=== PATIENT | male | born 1955 | race Caucasian/White ===

== ENCOUNTER → 2021-04-15 14:21 | Outpatient (BNVA) | payer OTHER, SELFPAY | PROVIDERS: PCP Internal Medicine; Visit Provider Internal Medicine ==

== ENCOUNTER → 2021-06-24 14:20 | Outpatient (BNVA) | payer OTHER, SELFPAY | PROVIDERS: PCP Internal Medicine; Visit Provider Internal Medicine ==

== ENCOUNTER → 2021-11-18 14:40 | Outpatient (BNVA) | payer OTHER, MEDICARE, SELFPAY | PROVIDERS: PCP Internal Medicine; Visit Provider Internal Medicine ==

== ENCOUNTER 2022-01-01 07:57 | Outpatient (REF) | payer MEDICARE, SELFPAY ==
--- NOTE | ~2022-01-01 | CT_ITS ---
EXAMINATION: CT CHEST WITHOUT CONTRAST CLINICAL INFORMATION: COPD COMPARISON: None TECHNIQUE: Multidetector volumetric CT imaging of the chest was done. Axial MIP volume rendering provided. Sagittal and coronal reformatted images were obtained. This CT examination was performed using dose optimization techniques as appropriate, variously including the following: *Automated exposure control *Adjustment of mA and/or kV according to patient size (this includes techniques or standardized protocols for targeted exams where dose is matched to indication/reason for exam; i.e. 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 LUNGS: The lungs are diffusely emphysematous with bullous changes in both upper lobes and apical parenchymal scarring. There is a 2 mm nodule in the left major fissure image 324/7 likely intrafissural lymph node, a 2 mm nodule in the lingula laterally adjacent major fissure axial image 443/7. There are tiny calcified granuloma scattered in the lungs measuring 1 mm and less. There is no acute consolidation or ground-glass density. There is moderate middle lobe atelectasis. No evidence of bronchiectasis or bronchial wall thickening. Centrilobular and paraseptal emphysema is seen. MEDIASTINUM: The thyroid lobes are symmetrical and normal. Central trachea and the bronchi are widely patent. No abnormal size mediastinal or hilar lymph nodes seen. PLEURA: There is no pleural effusion. No pleural mass or thickening. AXILLA: No lymphadenopathy. UPPER ABDOMEN: Visualized liver, spleen, pancreas and bilateral adrenal glands are unremarkable. OSSEOUS STRUCTURES: No lytic or sclerotic process seen. There is mild ventral spondylosis mid dorsal spine. CT/CT chest wo con IMPRESSION: Diffuse centrilobular and paraseptal emphysema. Right middle lobe atelectasis. No acute pneumonic consolidation or atelectasis. Small major fissure intrafissural lymph node. Tiny calcifications likely old granulomatous disease. No abnormal mediastinal lymphadenopathy. Fleischner guidelines were followed.
== END 2022-01-01 07:58 | disposition home or self-care (01) ==
LOC: HO.CT 07:57
PROVIDERS: Visit Provider Surgery
DX: J44.9 Chronic obstructive pulmonary disease, unspecified (principal); R91.8 Other nonspecific abnormal finding of lung field
CPT/HCPCS: 71250

== ENCOUNTER → 2022-01-15 10:07 | Outpatient (BNVA) | payer MEDICARE, SELFPAY | PROVIDERS: PCP Internal Medicine; Visit Provider Surgery | DX: R91.8 Other nonspecific abnormal finding of lung field (principal); Z87.891 Personal history of nicotine dependence | CPT/HCPCS: 99202 ==

== ENCOUNTER → 2022-05-13 13:52 | Outpatient (BNVA) | payer MEDICARE, SELFPAY | PROVIDERS: PCP Internal Medicine; Visit Provider Internal Medicine | DX: J44.9 Chronic obstructive pulmonary disease, unspecified (principal); R91.8 Other nonspecific abnormal finding of lung field; Z87.891 Personal history of nicotine dependence | CPT/HCPCS: 99212 ==

== ENCOUNTER → 2022-08-11 13:20 | Outpatient (BNVA) | payer MEDICARE, SELFPAY | PROVIDERS: PCP Internal Medicine; Visit Provider Internal Medicine | DX: J44.9 Chronic obstructive pulmonary disease, unspecified (principal); R91.8 Other nonspecific abnormal finding of lung field; Z87.891 Personal history of nicotine dependence | CPT/HCPCS: 94010; 99212 ==

== ENCOUNTER → 2022-11-29 09:33 | Outpatient (BNVA) | payer MEDICARE, SELFPAY | PROVIDERS: PCP Internal Medicine; Visit Provider Internal Medicine | DX: J44.9 Chronic obstructive pulmonary disease, unspecified (principal); R91.8 Other nonspecific abnormal finding of lung field; Z87.891 Personal history of nicotine dependence | CPT/HCPCS: 99212 ==

== ENCOUNTER 2022-12-31 08:47 | Outpatient (REF) | payer MEDICARE, SELFPAY ==
--- NOTE | ~2022-12-31 | CT_ITS ---
EXAMINATION: CT CHEST SCREENING CLINICAL INFORMATION: 50 pack year history. Former smoker. Quit 2 years ago. COMPARISON: Previous chest CT December 2021 TECHNIQUE: Multidetector volumetric CT imaging of the chest is performed without contrast using low dose technique. Additional 2D coronal and sagittal reformatted images and axial 3D maximum intensity projection (MIP) images are generated on the CT workstation. This CT examination was performed using dose optimization techniques as appropriate, variously including the following: *Automated exposure control *Adjustment of mA and/or kV according to patient size (this includes techniques or standardized protocols for targeted exams where dose is matched to indication/reason for exam; i.e. extremities or head) *Use of iterative reconstruction technique DLP: 47 mGy-cm FINDINGS: LUNGS: There is severe emphysema and hyperinflation. There is complete right middle lobe atelectasis or to previous exam. Stable biapical pleural parenchymal scarring. No suspicious pulmonary nodule. MEDIASTINUM: The mediastinum is normal. CORONARY ARTERY CALCIFICATION: Severe coronary artery and aortic valve calcification. PLEURA: There is no pleural effusion. No pleural mass or thickening. AXILLA: No lymphadenopathy. UPPER ABDOMEN: Unremarkable OSSEOUS STRUCTURES: Degenerative changes of the spine. CT/CT lung screening IMPRESSION: Severe emphysema and hyperinflation. Chronic complete atelectasis of the right middle lobe unchanged from previous exam. ASSESSMENT: Lung-RADS category 2: Benign RECOMMENDATION: Annual low-dose chest CT follow-up recommended.
== END 2022-12-31 08:48 | disposition home or self-care (01) ==
LOC: HO.CT 08:47
PROVIDERS: PCP Internal Medicine; Visit Provider Surgery
DX: Z12.2 Encounter for screening for malignant neoplasm of respiratory organs (principal); Z87.891 Personal history of nicotine dependence
CPT/HCPCS: 71271

== ENCOUNTER → 2023-02-09 13:59 | Outpatient (BNVA) | payer MEDICARE, SELFPAY | PROVIDERS: PCP Internal Medicine Sports Medicine; Visit Provider Internal Medicine | DX: J44.9 Chronic obstructive pulmonary disease, unspecified (principal); R06.09 Other forms of dyspnea; R91.8 Other nonspecific abnormal finding of lung field; Z87.891 Personal history of nicotine dependence | CPT/HCPCS: 94618; 99212 ==

== ENCOUNTER → 2023-03-16 13:32 | Outpatient (BNVA) | payer MEDICARE, SELFPAY | PROVIDERS: PCP Internal Medicine Sports Medicine; Visit Provider Internal Medicine | DX: J44.9 Chronic obstructive pulmonary disease, unspecified (principal); R91.8 Other nonspecific abnormal finding of lung field; R06.09 Other forms of dyspnea | CPT/HCPCS: 94618; 99212 ==

== ENCOUNTER 2023-05-16 13:32 | Outpatient (AMB) | payer MEDICARE, SELFPAY ==
--- NOTE | 2023-05-16 13:39 | A.OFFVIS_ITS ---
Intake Vital Signs 05/16/23 13:40 Height 5 ft 9 in Weight 121 lb BMI 17.9 BP 110/70 Blood Pressure Location Lt brachial Position Sitting Pulse 127 H Pulse Source Pulse Oximeter Pulse Oximetry (%) 91 L Oxygen Delivery Method Nasal Cannula Oxygen Flow Rate 2 Intake Visit Reasons: Increased Shortness of Breath Intake Note: pt is here for follow up and states he is having increased pulse with walking, and breathing is good, and he needs to use oxygen, using 3 liters cont. and 4 with pulse with going out to have tanks last longer. 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 Allergies No Known Allergies Allergy (Verified 05/16/23 14:13) Medication List - Last Reconciled 05/16/23 by Bailee Santacruz MD albuterol sulfate 90 mcg/actuation 2 puffs inhalation Q4-6H PRN 90 days aspirin 81 mg PO .qod atorvastatin 20 mg PO DAILY glucosamine HCl 1,500 mg PO DAILY ipratropium-albuterol 0.5 mg-3 mg(2.5 mg base)/3 mL 3 mL inhalation QID PRN multivitamin (Daily Multi-Vitamin tablet) 1 tab PO DAILY prednisone 20 mg PO BID silver sulfadiazine 1% appl topical BID Symbicort 160-4.5 mcg/actuation (budesonide-formoterol) 2 puffs inhalation BID 90 days NS Do you need a note to return to daycare/school/sports/work: No HPI Increased Shortness of Breath HPI Details 67 YEARS OLD VERY PLEASANT GENTLEMAN, WITH DIAGNOSIS OF ADVANCED COPD AND HYPOXEMIA, COMES FOR FOLLOW-UP AFTER 2 MONTHS. HE CLAIMS THAT THE BREATHING HAS BEEN FAIRLY WELL AND HE CONTINUES TO USE HIS INHALERS PRESCRIBED, AND DUONEB UPDRAFTS. HE STAYS ON OXYGEN, ON CONTINUOUS FLOW WHEN AT HOME, BUT FOR OUTDOORS HE IS USING PULSE OX MODE AT 4 L/MINUTE. HE DENIES ANY WHEEZING. DOES HAVE INTERMITTENT COUGH WITH THICK MUCUS, FEELS BETTER WHEN HE CAN CLEAR THE MUCUS. AT NIGHTTIME WHEN RESTING HIS HEART RATE IS UNDER GOOD CONTROL. BUT DURING THE DAYTIME WHEN HE WALKS AROUND HE DOES NOTICE THAT HE HAS FAST HEART RATE ESPECIALLY WITH MINIMAL ACTIVITY. [facility] Medical History (Updated 05/16/23 @ 14:25 by Bailee Santacruz MD) BPH (benign prostatic hyperplasia) COPD (chronic obstructive pulmonary disease) Dyspnea on minimal exertion Hyperlipidemia Personal history of nicotine dependence Pulmonary nodules Tachycardia Surgical History History of cataract surgery History of Mohs micrographic surgery for skin cancer History of right inguinal hernia repair Social History Patient Tobacco Use Status: Former Tobacco user Years Smoked: 50 Review of Systems Const All systems reviewed & are unremarkable except as noted in HPI and below Eyes Reports no additional complaints ENT Reports nasal congestion (Off and on, but now every day for the last 3-4 days) Card Denies irregular heart rhythm, Denies leg edema and Reports dyspnea on exertion Resp Reports as per HPI and Reports dyspnea on exertion GI Reports no additional complaints Reports no additional complaints Musc Reports no additional complaints Skin/Breast Reports system reviewed and no additional complaints, except as documented Neuro Reports no additional complaints Psych Reports no additional complaints Physical Exam Vital Signs: Last Vital Signs Pulse 127 H 05/16/23 13:40 BP 110/70 05/16/23 13:40 Pulse Ox 91 L 05/16/23 13:40 Oxygen Delivery Method Nasal Cannula 05/16/23 13:40 Oxygen Flow Rate 2 05/16/23 13:40 BMI result Body Mass Index 17.9 Const General: comfortable, no acute distress, alert and awake Orientation/consciousness: patient oriented x3 HEENT Head: Yes normal to inspection General nose exam: No nasal polyps present and No nasal discharge present Face and sinus: Yes sinuses nontender Mouth: oropharynx normal Throat: Yes posterior oropharynx normal Eyes General: appearance normal, both eyes and all related structures Neck Neck: Yes normal visual inspection, Yes no lymphadenopathy, Yes trachea midline and Yes no JVD Thyroid: Thyroid normal Chest Chest palpation & inspection: normal inspection of the chest, normal palpation of entire chest wall and no tenderness Resp Other: PERCUSSION NOTE IS HYPER-RESONANT, BREATH SOUNDS ARE VERY DISTANT WITH PROLONGED EXPIRATORY PHASE. BUT NO WHEEZES RHONCHI OR CREPS ARE HEARD. Cardio Palpation: normal PMI Rate: regular rate Rhythm: regular rhythm Heart sounds: no gallops and no murmurs GI Palpation (GI): Soft to palpation, nontender, No hepatosplenomegaly present and no masses Auscultation: normal bowel sounds Back/Spine/Pelvis Thoracic/Lumbar Spine: thoracic and lumbar spine normal to inspection Skin General skin exam: no rashes or lesions noted Neuro General: patient oriented x3 and no focal motor deficits Cranial nerves: Yes CN's II-XII intact bilaterally Extrem General: Yes normal to inspection, Yes no clubbing, cyanosis or edema and Yes no calf tenderness Psych Appearance: grossly normal and well kempt Speech and movement: Normal speech and movement present Assessment & Plan Assessment & Plan (1) COPD (chronic obstructive pulmonary disease): Comment: Advanced COPD . Patient is well aware of this. Symptomatically well controlled , EXCEPT FOR DYSPNEA ON WALKING AROUND. He is doing better with the use of DuoNeb updrafts at least 3 times a day, in place of Spiriva HandiHaler. Advised to just keep Spiriva HandiHaler as a backup. He will also continue to use Symbicort (Brand name ) 160-4.5 Use Ventolin HFA 2 puffs Q 4-6 hours only p.r.n.. * ALSO PRESCRIBED PREDNISONE 20 MG BID TO KEEP ON HAND AND USE WHEN HAVING AN ACUTE EXACERBATION, Code(s): J44.9 - Chronic obstructive pulmonary disease, unspecified (2) Pulmonary nodules: Comment: Pulmonary nodule in left upper lobe 4 mm has actually decreased in size. Has a few tiny calcified micro nodules, benign at this time. HE IS PARTICIPATING IN ANNUAL LUNG SCREENING PROGRAM, RECENT CT SCAN SHOWS NO NEW CHANGE.( BENIGN CATEGORY-2 ) Code(s): R91.8 - Other nonspecific abnormal finding of lung field (3) Personal history of nicotine dependence: Comment: (former smoker, 1ppd x 50yrs, 50pyh, quit ~04/2021) Code(s): Z87.891 - Personal history of nicotine dependence (4) Dyspnea on minimal exertion: Comment: HE GETS SHORT OF BREATH WITH MINIMAL, WALKING OR EXERTION AND THIS IS SECONDARY TO HYPOXEMIA ON EXERTION. HE DEFINITELY FEELS BETTER SINCE HE IS USING OXYGEN. BUT STILL GETS SHORT OF BREATH ON WALKING UP HILL OR CLIMBING STAIRS. [place] : ADVISED TO CONTINUE USING O2 AT 4 L/MINUTE WITH ANY PHYSICAL ACTIVITY. HE CAN USE 3 L/MINUTE WITH PULSE MODE, AT REST. BUT WITH ANY PHYSICAL ACTIVITY, HE NEEDS TO USE THE CONTINUOUS MODE AND 4 L/MINUTE. HE TENDS TO DESATURATE WITH THE PULSE MODE, WHEN HE IS WALKING AROUND. Code(s): R06.09 - Other forms of dyspnea (5) Tachycardia: Comment: TODAY ON MINIMAL EXERTION LIKE WALKING HIS HEART RATE WAS FAST 108 TO 117 /MT. HE SAY IS THAT AT AT HOME WHEN HE IS RESTING HIS HEART RATE IS ALWAYS BELOW 90. HE HAS ALSO LOST A FEW MORE LB OF WEIGHT. I ASKED HIM TO SEE HIS PRIMARY CARE PHYSICIAN AND DISCUSS ABOUT TACHYCARDIA, AND ALSO SOME WEIGHT LOSS, HE SHOULD HAVE CHECKUP FOR THYROID FUNCTION. Code(s): R00.0 - Tachycardia, unspecified Medications: Changed From prednisone 20 mg PO BID 5 days 10 tabs 1RF COPD EXCARBATION To prednisone 20 mg PO BID COPD EXCARBATION Coding Level of Care Code Est Pt Level 3 (50657) Diagnoses COPD (chronic obstructive pulmonary disease) J44.9 Pulmonary nodules R91.8 Personal history of nicotine dependence Z87.891 Dyspnea on minimal exertion R06.09 Tachycardia R00.0
[2023-05-16 13:40] VITALS: BP 110/70; PULSE 127; O2SAT 91; BMI 17.9
== END 2023-05-16 14:13 | disposition home or self-care (01) ==
PROVIDERS: PCP Internal Medicine Sports Medicine; Visit Provider Internal Medicine
DX: J44.9 Chronic obstructive pulmonary disease, unspecified (principal); R91.8 Other nonspecific abnormal finding of lung field; Z87.891 Personal history of nicotine dependence; R06.09 Other forms of dyspnea; R00.0 Tachycardia, unspecified
CPT/HCPCS: 99213

== ENCOUNTER → 2023-05-16 13:32 | Outpatient (BNVA) | payer MEDICARE, SELFPAY | PROVIDERS: PCP Internal Medicine Sports Medicine; Visit Provider Internal Medicine | DX: J44.9 Chronic obstructive pulmonary disease, unspecified (principal); R06.09 Other forms of dyspnea; R00.0 Tachycardia, unspecified; R91.8 Other nonspecific abnormal finding of lung field; Z87.891 Personal history of nicotine dependence; Z99.81 Dependence on supplemental oxygen; Z79.82 Long term (current) use of aspirin; Z79.52 Long term (current) use of systemic steroids | CPT/HCPCS: 99212 ==

== ENCOUNTER 2023-07-20 09:29 | Outpatient (AMB) | payer MEDICARE, SELFPAY ==
[2023-07-20 09:50] VITALS: BP 92/60; PULSE 109; O2SAT 92; BMI 17.4
--- NOTE | 2023-07-20 09:50 | MHC.OFFVIS ---
Intake Vital Signs 07/20/23 09:50 Height 5 ft 9 in Weight 117 lb 15.157 oz BMI 17.4 BP 92/60 Blood Pressure Location Lt brachial Position Sitting Pulse 109 H Pulse Oximetry (%) 92 Oxygen Delivery Method Nasal Cannula Oxygen Flow Rate 3 Intake Visit Reasons: COPD Intake Note: pt is here for follow up and is having issues eating with meals, and his breathing ability. more shortness of breath, the afternoon dose of Symbicort does not really boost him like the am dose gives him, and he also more phlegm deep in chest. pt did get flu, prevnar and 5th dose of covid and making appt for rsv, and shingles Allergies No Known Allergies Allergy (Verified 07/20/23 10:04) Medication List - Last Reconciled 07/20/23 by Bailee Santacruz MD albuterol sulfate 90 mcg/actuation 2 puffs inhalation Q4-6H PRN 90 days aspirin 81 mg PO .qod atorvastatin 20 mg PO DAILY glucosamine HCl 1,500 mg PO DAILY ipratropium-albuterol 0.5 mg-3 mg(2.5 mg base)/3 mL 3 mL inhalation QID PRN multivitamin (Daily Multi-Vitamin tablet) 1 tab PO DAILY prednisone 20 mg PO BID silver sulfadiazine 1% appl topical BID Symbicort 160-4.5 mcg/actuation (budesonide-formoterol) 2 puffs inhalation BID 90 days NS Do you need a note to return to daycare/school/sports/work: No HPI COPD HPI Details This 68 years old gentleman is a case of advanced chronic obstructive pulmonary disease. He is on oxygen 24 hours a day. Usually keeps it. At 3 L/minute day and night He has oxygen conserving unit for portability. His complaint is that during the eating his O2 sat falls down even with 3 L/minute. This is because during eating he breathes through his mouth, and O2 via nasal cannula is not as affected. Also his problem is that he feels mucus is stock somewhere deep down and does not come up. He thinks in the afternoon when he uses Symbicort it does not help him as much. However he does have nebulizer with the solution of ipratropium and albuterol, to use every 6 hours during the daytime. [facility] Medical History Tachycardia Dyspnea on minimal exertion BPH (benign prostatic hyperplasia) Hyperlipidemia Personal history of nicotine dependence Pulmonary nodules COPD (chronic obstructive pulmonary disease) Surgical History History of Mohs micrographic surgery for skin cancer History of cataract surgery History of right inguinal hernia repair Social History Patient Tobacco Use Status: Former Tobacco user Years Smoked: 50 Review of Systems Const All systems reviewed & are unremarkable except as noted in HPI and below Eyes Reports no additional complaints ENT Reports nasal congestion (Off and on, but now every day for the last 3-4 days) Card Denies irregular heart rhythm, Denies leg edema and Reports dyspnea on exertion Resp Reports as per HPI and Reports dyspnea on exertion GI Reports no additional complaints Reports no additional complaints Musc Reports no additional complaints Skin/Breast Reports system reviewed and no additional complaints, except as documented Neuro Reports no additional complaints Psych Reports no additional complaints Physical Exam Vital Signs: Last Vital Signs Pulse 109 H 07/20/23 09:50 BP 92/60 07/20/23 09:50 Pulse Ox 92 07/20/23 09:50 Oxygen Delivery Method Nasal Cannula 07/20/23 09:50 Oxygen Flow Rate 3 07/20/23 09:50 BMI result Body Mass Index 17.4 Const General: comfortable, no acute distress, alert and awake Orientation/consciousness: patient oriented x3 HEENT Head: Yes normal to inspection General nose exam: No nasal polyps present and No nasal discharge present Face and sinus: Yes sinuses nontender Mouth: oropharynx normal Throat: Yes posterior oropharynx normal Eyes General: appearance normal, both eyes and all related structures Neck Neck: Yes normal visual inspection, Yes no lymphadenopathy, Yes trachea midline and Yes no JVD Thyroid: Thyroid normal Chest Chest palpation & inspection: normal inspection of the chest, normal palpation of entire chest wall and no tenderness Resp Other: PERCUSSION NOTE IS HYPER-RESONANT, BREATH SOUNDS ARE VERY DISTANT WITH PROLONGED EXPIRATORY PHASE. BUT NO WHEEZES RHONCHI OR CREPS ARE HEARD. Cardio Palpation: normal PMI Rate: regular rate Rhythm: regular rhythm Heart sounds: no gallops and no murmurs GI Palpation (GI): Soft to palpation, nontender, No hepatosplenomegaly present and no masses Auscultation: normal bowel sounds Back/Spine/Pelvis Thoracic/Lumbar Spine: thoracic and lumbar spine normal to inspection Skin General skin exam: no rashes or lesions noted Neuro General: patient oriented x3 and no focal motor deficits Cranial nerves: Yes CN's II-XII intact bilaterally Extrem General: Yes normal to inspection, Yes no clubbing, cyanosis or edema and Yes no calf tenderness Psych Appearance: grossly normal and well kempt Speech and movement: Normal speech and movement present Assessment & Plan Assessment & Plan (1) COPD (chronic obstructive pulmonary disease): Comment: Advanced COPD . Patient is well aware of this. Symptomatically well controlled , EXCEPT FOR DYSPNEA ON WALKING AROUND. He is doing better with the use of DuoNeb updrafts at least 3 times a day, in place of Spiriva HandiHaler. Advised to just keep Spiriva HandiHaler as a backup. He will also continue to use Symbicort (Brand name ) 160-4.5 Use Ventolin HFA 2 puffs Q 4-6 hours only p.r.n.. Oxygen 2 L/minute when resting, and 3 L/minute when outdoors. May use Mucinex 400 mg b.i.d. OTC for mucus. Keep humidifier in the house. Was going to prescribe Acupella well for him to help the getting mucus out, but he did not want to use it at present. Advised the to do chest percussion p.r.n. if he feels some is mucus stock in the chest. * ALSO PRESCRIBED PREDNISONE 20 MG BID TO KEEP ON HAND AND USE WHEN HAVING AN ACUTE EXACERBATION,( keep on hand ) revisit 4 months Code(s): J44.9 - Chronic obstructive pulmonary disease, unspecified (2) Pulmonary nodules: Comment: Pulmonary nodule in left upper lobe 4 mm has actually decreased in size. Has a few tiny calcified micro nodules, benign at this time. HE IS PARTICIPATING IN ANNUAL LUNG SCREENING PROGRAM, RECENT CT SCAN SHOWS NO NEW CHANGE.( BENIGN CATEGORY-2 ) Code(s): R91.8 - Other nonspecific abnormal finding of lung field Coding Level of Care Code Est Pt Level 3 (20919) Diagnoses COPD (chronic obstructive pulmonary disease) J44.9 Pulmonary nodules R91.8
== END 2023-07-20 10:26 | disposition home or self-care (01) ==
PROVIDERS: PCP Internal Medicine Sports Medicine; Visit Provider Internal Medicine
DX: J44.9 Chronic obstructive pulmonary disease, unspecified (principal); R91.8 Other nonspecific abnormal finding of lung field
CPT/HCPCS: 99213

== ENCOUNTER → 2023-07-20 09:29 | Outpatient (BNVA) | payer MEDICARE, SELFPAY | PROVIDERS: PCP Internal Medicine Sports Medicine; Visit Provider Internal Medicine | DX: J44.9 Chronic obstructive pulmonary disease, unspecified (principal); R91.8 Other nonspecific abnormal finding of lung field | CPT/HCPCS: 99212 ==

== ENCOUNTER 2023-11-15 10:08 | Outpatient (AMB) | payer MEDICARE, SELFPAY ==
[2023-11-15 10:30] VITALS: BP 120/42; PULSE 51; O2SAT 91; BMI 17.7
--- NOTE | 2023-11-15 10:30 | A.OFFVIS_ITS ---
Intake Vital Signs 11/15/23 10:30 Height 5 ft 9 in Weight 120 lb 2.431 oz BMI 17.7 BP 120/42 L Blood Pressure Location Lt brachial Position Sitting Pulse 51 Pulse Source Pulse Oximeter Pulse Oximetry (%) 91 L Oxygen Delivery Method Room Air Intake Visit Reasons: COPD Intake Note: pt is here for follow up and states he is feeling good, had something in August. 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 DEPENDENT ON OXYGEN HE IS HERE. FOR FOLLOW-UP AFTER 4 MONTHS HE DID HAVE WHAT APPEARED TO BE AN EXACERBATION OF COPD IN AUGUST. AND GOT BETTER BY TAKING PREDNISONE FOR 5 DAYS. HE DOES KEEP PREDNISONE ON HAND FOR SUCH ACUTE EXACERBATIONS. DOING WELL EXCEPT FOR HIS USUAL SHORTNESS OF BREATH ON EXERTION AND ALSO INTERMITTENT COUGH. HE STAYS ON OXYGEN 2-3 L/MINUTE AT HOME, AND BRYCE'S UP TO 4 L/MINUTE WHEN HE COMES OUTDOORS. AT PRESENT HE IS AT BASELINE, DENIES FEVER CHILLS OR EXPECTORATION. [facility] Medical History Tachycardia Dyspnea on minimal exertion BPH (benign prostatic hyperplasia) Hyperlipidemia Personal history of nicotine dependence Pulmonary nodules COPD (chronic obstructive pulmonary disease) Surgical History History of Mohs micrographic surgery for skin cancer History of cataract surgery History of right inguinal hernia repair Social History Patient Tobacco Use Status: Former Tobacco user Years Smoked: 50 Review of Systems Const All systems reviewed & are unremarkable except as noted in HPI and below Eyes Reports no additional complaints ENT Reports nasal congestion (Off and on, but now every day for the last 3-4 days) Card Denies irregular heart rhythm, Denies leg edema and Reports dyspnea on exertion Resp Reports as per HPI and Reports dyspnea on exertion GI Reports no additional complaints Reports no additional complaints Musc Reports no additional complaints Skin/Breast Reports system reviewed and no additional complaints, except as documented Neuro Reports no additional complaints Psych Reports no additional complaints Physical Exam Vital Signs: Last Vital Signs Pulse 51 02/20/24 10:30 BP 120/42 L 11/15/23 10:30 Pulse Ox 91 L 11/15/23 10:30 Oxygen Delivery Method Room Air 11/15/23 10:30 BMI result Body Mass Index 17.7 Const General: comfortable, no acute distress, alert and awake Orientation/consciousness: patient oriented x3 HEENT Head: Yes normal to inspection General nose exam: No nasal polyps present and No nasal discharge present Face and sinus: Yes sinuses nontender Mouth: oropharynx normal Throat: Yes posterior oropharynx normal Eyes General: appearance normal, both eyes and all related structures Neck Neck: Yes normal visual inspection, Yes no lymphadenopathy, Yes trachea midline and Yes no JVD Thyroid: Thyroid normal Chest Chest palpation & inspection: normal inspection of the chest, normal palpation of entire chest wall and no tenderness Resp Other: PERCUSSION NOTE IS HYPER-RESONANT, BREATH SOUNDS ARE VERY DISTANT WITH PROLONGED EXPIRATORY PHASE. BUT NO WHEEZES RHONCHI OR CREPS ARE HEARD. Cardio Palpation: normal PMI Rate: regular rate Rhythm: regular rhythm Heart sounds: no gallops and no murmurs GI Palpation (GI): Soft to palpation, nontender, No hepatosplenomegaly present and no masses Auscultation: normal bowel sounds Back/Spine/Pelvis Thoracic/Lumbar Spine: thoracic and lumbar spine normal to inspection Skin General skin exam: no rashes or lesions noted Neuro General: patient oriented x3 and no focal motor deficits Cranial nerves: Yes CN's II-XII intact bilaterally Extrem General: Yes normal to inspection, Yes no clubbing, cyanosis or edema and Yes no calf tenderness Psych Appearance: grossly normal and well kempt Speech and movement: Normal speech and movement present Assessment & Plan Assessment & Plan (1) COPD (chronic obstructive pulmonary disease): Comment: Advanced COPD . Patient is well aware of this. Symptomatically well controlled , EXCEPT FOR DYSPNEA ON WALKING AROUND. Code(s): J44.9 - Chronic obstructive pulmonary disease, unspecified Plan: He is doing OK with the use of DuoNeb updrafts at least 3 times a day, in place of Spiriva HandiHaler. Advised to just keep Spiriva HandiHaler as a backup. He will also continue to use Symbicort (Brand name ) 160-4.5 2 puffs bid . Use Ventolin HFA 2 puffs Q 4-6 hours only p.r.n.. Oxygen 2 L/minute when resting, and 3-4 L/minute when outdoors. May use Mucinex 400 mg b.i.d. OTC for mucus. Keep humidifier in the house. * ALSO PRESCRIBED PREDNISONE 20 MG BID TO KEEP ON HAND AND USE WHEN HAVING AN ACUTE EXACERBATION,( keep on hand ) revisit 4 months (2) Pulmonary nodules: Comment: Pulmonary nodule in left upper lobe 4 mm has actually decreased in size. Has a few tiny calcified micro nodules, benign at this time. HE IS PARTICIPATING IN ANNUAL LUNG SCREENING PROGRAM, RECENT CT SCAN SHOWS NO NEW CHANGE.( BENIGN CATEGORY-2 ) Code(s): R91.8 - Other nonspecific abnormal finding of lung field Plan: as above (3) Dyspnea on minimal exertion: Comment: HE GETS SHORT OF BREATH WITH MINIMAL, WALKING OR EXERTION AND THIS IS SECONDARY TO HYPOXEMIA ON EXERTION. HE DEFINITELY FEELS BETTER SINCE HE IS USING OXYGEN. BUT STILL GETS SHORT OF BREATH ON WALKING UP HILL OR CLIMBING STAIRS. Code(s): R06.09 - Other forms of dyspnea Plan: [place] : ADVISED TO CONTINUE USING O2 AT 4 L/MINUTE WITH ANY PHYSICAL ACTIVITY. HE CAN USE 3-4 L/MINUTE WITH PULSE MODE, AT REST. Coding Level of Care Code Est Pt Level 3 (80632) Diagnoses COPD (chronic obstructive pulmonary disease) J44.9 Pulmonary nodules R91.8 Dyspnea on minimal exertion R06.09
== END 2023-11-15 11:11 | disposition home or self-care (01) ==
PROVIDERS: PCP Internal Medicine Sports Medicine; Visit Provider Internal Medicine
DX: J44.9 Chronic obstructive pulmonary disease, unspecified (principal); R91.8 Other nonspecific abnormal finding of lung field; R06.09 Other forms of dyspnea
CPT/HCPCS: 99213

== ENCOUNTER → 2023-11-15 10:08 | Outpatient (BNVA) | payer MEDICARE, SELFPAY | PROVIDERS: PCP Internal Medicine Sports Medicine; Visit Provider Internal Medicine | DX: J44.9 Chronic obstructive pulmonary disease, unspecified (principal); R91.8 Other nonspecific abnormal finding of lung field; R06.09 Other forms of dyspnea | CPT/HCPCS: 99212 ==

== ENCOUNTER 2024-01-18 09:51 | Outpatient (REF) | payer MEDICARE, SELFPAY ==
--- NOTE | ~2024-01-18 | CT_ITS ---
EXAMINATION: CT CHEST SCREENING CLINICAL INFORMATION: Personal history of nicotine dependence. The patient has a 50 pack-year history of smoking, having quit 2 years ago. COMPARISON: CT chest 12/31/2022. TECHNIQUE: Multidetector volumetric CT imaging of the chest is performed on a Siemens SOMATOM Definition scanner without contrast using low dose technique. Additional 2D coronal and sagittal reformatted images and axial 3D maximum intensity projection (MIP) images are generated on the CT workstation. This CT examination was performed using dose optimization techniques as appropriate, variously including the following: *Automated exposure control *Adjustment of mA and/or kV according to patient size (this includes techniques or standardized protocols for targeted exams where dose is matched to indication/reason for exam; i.e. extremities or head) *Use of iterative reconstruction technique DLP: 40 mGy-cm FINDINGS: LUNGS: Again seen are severe emphysematous changes with marked hyperinflation and a saber-sheath trachea along with peribronchial thickening. Biapical pleural-parenchymal scarring is unchanged. There is chronic right middle lobe collapse, similar to prior. 3 mm nodule in the left upper lobe laterally is unchanged (5:366, compare prior 5:345). A 2 mm left upper lobe nodule just above this level is unchanged (5:335, compare prior 5:316). No new, increasing sized or concerning pulmonary nodule is seen. MEDIASTINUM: The mediastinum is normal. CORONARY ARTERY CALCIFICATION: Moderate. PLEURA: There is no pleural effusion. No pleural mass or thickening. AXILLA: No lymphadenopathy. UPPER ABDOMEN: Unremarkable. OSSEOUS STRUCTURES: Unremarkable. Mild degenerative changes are present. CT/CT lung screening IMPRESSION: Severe COPD. No evidence of malignancy. ASSESSMENT: Lung-RADS category 2: Benign RECOMMENDATION: Routine annual low-dose CT screening in 12 months.
== END 2024-01-18 09:52 | disposition home or self-care (01) ==
LOC: HO.CT 09:51
PROVIDERS: PCP Internal Medicine Sports Medicine; Visit Provider Nurse Practitioner Family
DX: Z12.2 Encounter for screening for malignant neoplasm of respiratory organs (principal); Z87.891 Personal history of nicotine dependence
CPT/HCPCS: 71271

== ENCOUNTER 2024-03-20 09:53 | Outpatient (AMB) | payer MEDICARE, SELFPAY ==
--- NOTE | 2024-03-20 10:04 | MHC.OFFVIS ---
Vital Signs 03/20/24 10:05 Height 5 ft 9 in Weight 115 lb 11.883 oz BMI 17.1 BP 122/68 Blood Pressure Location Lt brachial Position Sitting Pulse 114 H Pulse Source Pulse Oximeter Pulse Oximetry (%) 93 Oxygen Delivery Method Nasal Cannula Oxygen Flow Rate 3 Intake Visit Reasons: COPD Intake Note: pt is here for follow up and states he is having trouble with the muggy weather not much stamina. please refill albuterol hfa. 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 Allergies No Known Allergies Allergy (Verified 03/20/24 10:26) Medication List - Last Reconciled 03/20/24 by Bailee Santacruz MD albuterol sulfate 90 mcg/actuation 2 puffs inhalation Q4-6H PRN 90 days aspirin 81 mg PO .qod atorvastatin 20 mg PO DAILY glucosamine HCl 1,500 mg PO DAILY guaifenesin ER (Mucinex) 600 mg PO DAILY ipratropium-albuterol 0.5 mg-3 mg(2.5 mg base)/3 mL 3 mL inhalation QID PRN multivitamin (Daily Multi-Vitamin tablet) 1 tab PO DAILY silver sulfadiazine 1% appl topical BID Symbicort 160-4.5 mcg/actuation (budesonide-formoterol) 2 puffs inhalation BID 90 days NS Do you need a note to return to daycare/school/sports/work: No HPI HPI COPD: Details: THIS 68 YEARS OLD GENTLEMAN IS A CASE OF ADVANCED CHRONIC OBSTRUCTIVE PULMONARY DISEASE, HE IS HERE FOR HIS ROUTINE FOLLOW-UP AFTER 4 MONTHS. HAS BEEN RELATIVELY STABLE IN THE LAST 4 MONTHS, WITH INTERMITTENT BOUTS OF COUGH, AND SHORTNESS OF BREATH ON MINIMAL EXERTION. USUALLY STAYS ON OXYGEN 2 L/MINUTE JACKING UP TO 3 OR 4 L/MINUTE WHEN HE WALKS AROUND. SLEEPS FAIRLY WELL EXCEPT FOR AWAKENING A FEW TIMES WITH COUGH. [facility] Medical History (Updated 03/20/24 @ 10:32 by Bailee Santacruz MD) Respiratory failure with hypoxia Tachycardia Dyspnea on minimal exertion BPH (benign prostatic hyperplasia) Hyperlipidemia Personal history of nicotine dependence Pulmonary nodules COPD (chronic obstructive pulmonary disease) Surgical History History of Mohs micrographic surgery for skin cancer History of cataract surgery History of right inguinal hernia repair Social History Patient Tobacco Use Status: Former Tobacco user Years Smoked: 50 Review of Systems Const All systems reviewed & are unremarkable except as noted in HPI and below Eyes Reports no additional complaints ENT Reports nasal congestion (Off and on, but now every day for the last 3-4 days) Card Denies irregular heart rhythm, Denies leg edema and Reports dyspnea on exertion Resp Reports as per HPI and Reports dyspnea on exertion GI Reports no additional complaints Reports no additional complaints Musc Reports no additional complaints Skin/Breast Reports system reviewed and no additional complaints, except as documented Neuro Reports no additional complaints Psych Reports no additional complaints Physical Exam Vital Signs: Last Vital Signs Pulse 114 H 03/20/24 10:05 BP 122/68 03/20/24 10:05 Pulse Ox 93 03/20/24 10:05 Oxygen Delivery Method Nasal Cannula 03/20/24 10:05 Oxygen Flow Rate 3 03/20/24 10:05 BMI result Body Mass Index 17.1 Const General: comfortable, no acute distress, alert and awake Orientation/consciousness: patient oriented x3 HEENT Head: Yes normal to inspection General nose exam: No nasal polyps present and No nasal discharge present Face and sinus: Yes sinuses nontender Mouth: oropharynx normal Throat: Yes posterior oropharynx normal Eyes General: appearance normal, both eyes and all related structures Neck Neck: Yes normal visual inspection, Yes no lymphadenopathy, Yes trachea midline and Yes no JVD Thyroid: Thyroid normal Chest Chest palpation & inspection: normal inspection of the chest, normal palpation of entire chest wall and no tenderness Resp Other: PERCUSSION NOTE IS HYPER-RESONANT, BREATH SOUNDS ARE VERY DISTANT WITH PROLONGED EXPIRATORY PHASE. BUT NO WHEEZES RHONCHI OR CREPS ARE HEARD. Cardio Palpation: normal PMI Rate: regular rate Rhythm: regular rhythm Heart sounds: no gallops and no murmurs GI Palpation (GI): Soft to palpation, nontender, No hepatosplenomegaly present and no masses Auscultation: normal bowel sounds Back/Spine/Pelvis Thoracic/Lumbar Spine: thoracic and lumbar spine normal to inspection Skin General skin exam: no rashes or lesions noted Neuro General: patient oriented x3 and no focal motor deficits Cranial nerves: Yes CN's II-XII intact bilaterally Extrem General: Yes normal to inspection, Yes no clubbing, cyanosis or edema and Yes no calf tenderness Psych Appearance: grossly normal and well kempt Speech and movement: Normal speech and movement present Office Procedures Spirometry Testing Spirometry Comments: Spirometry done in the office, Dr. Santacruz has the results results scanned to his chart. 91156- Spirometry Results Reviewed Results Reviewed: SPIROMETRY fvc= 39 % fev1=18 % fef 25-75= 12 % c/w very severe obstructive airway disorder, the numbers are slightly decreased as compared to spirometry in 2021. Assessment & Plan Assessment & Plan (1) COPD (chronic obstructive pulmonary disease): Comment: Advanced COPD . Patient is well aware of this. Symptomatically well controlled , EXCEPT FOR DYSPNEA ON WALKING AROUND. Code(s): J44.9 - Chronic obstructive pulmonary disease, unspecified Category: Medical Plan: SYMBICORT 160-4.52 PUFFS B.I.D. IPRATROPIUM-ALBUTEROL UPDRAFTS Q 6 HOURS WHILE AWAKE. ALBUTEROL HFA 2 PUFFS Q 4-6 HOURS P.R.N. WHEN OUTDOORS Mucinex ER 600 mg p.o. once or twice a day. (2) Personal history of nicotine dependence: Comment: (former smoker, 1ppd x 50yrs, 50pyh, quit ~04/2021) Code(s): Z87.891 - Personal history of nicotine dependence Category: Medical Plan: Patient commended for not going back to smoking. (3) Pulmonary nodules: Comment: Pulmonary nodule in left upper lobe 4 mm has actually decreased in size. Has a few tiny calcified micro nodules, benign at this time. HE IS PARTICIPATING IN ANNUAL LUNG SCREENING PROGRAM, RECENT CT SCAN SHOWS NO NEW CHANGE.( BENIGN CATEGORY-2 ) Code(s): R91.8 - Other nonspecific abnormal finding of lung field Category: Medical Plan: Continue to participate in annual lung screening program. (4) Respiratory failure with hypoxia: Comment: He has the hypoxemia which gets worse on walking around. Code(s): J96.91 - Respiratory failure, unspecified with hypoxia Category: Medical Plan: Continue O2 therapy 2 L/minute at rest and when sleeping, May increase to 3 or 4 L/minute when outdoors. Medications: Refilled albuterol sulfate 90 mcg/actuation 2 puffs inhalation Q4-6H 90 days PRN 3 ea 2RF shortness of breath or wheezing Coding Level of Care Code Est Pt Level 3 (27128) Diagnoses COPD (chronic obstructive pulmonary disease) J44.9 Personal history of nicotine dependence Z87.891 Pulmonary nodules R91.8 Respiratory failure with hypoxia J96.91 CPT Codes Spirometry - CPT: 21322- Spirometry ([id number])
[2024-03-20 10:05] VITALS: BP 122/68; PULSE 114; O2SAT 93; BMI 17.1
== END 2024-03-20 10:40 | disposition home or self-care (01) ==
PROVIDERS: PCP Internal Medicine Sports Medicine; Visit Provider Internal Medicine
DX: J44.9 Chronic obstructive pulmonary disease, unspecified (principal); Z87.891 Personal history of nicotine dependence; R91.8 Other nonspecific abnormal finding of lung field; J96.91 Respiratory failure, unspecified with hypoxia
CPT/HCPCS: 94010; 99213

== ENCOUNTER → 2024-03-20 09:53 | Outpatient (BNVA) | payer MEDICARE, SELFPAY | PROVIDERS: PCP Internal Medicine Sports Medicine; Visit Provider Internal Medicine | DX: J44.9 Chronic obstructive pulmonary disease, unspecified (principal); J96.91 Respiratory failure, unspecified with hypoxia; Z87.891 Personal history of nicotine dependence; Z99.81 Dependence on supplemental oxygen; R91.8 Other nonspecific abnormal finding of lung field | CPT/HCPCS: 94010; 99212 ==

== ENCOUNTER 2024-07-16 10:40 | Outpatient (AMB) | payer MEDICARE, SELFPAY ==
--- NOTE | 2024-07-16 10:56 | MHC.OFFVIS ---
Vital Signs 07/16/24 10:57 Height 5 ft 9 in Weight 114 lb 10.246 oz BMI 16.9 BP 110/60 Blood Pressure Location Lt brachial Position Sitting Pulse 102 H Pulse Source Pulse Oximeter Pulse Oximetry (%) 93 Oxygen Delivery Method Nasal Cannula Oxygen Flow Rate 3 Intake Visit Reasons: COPD Intake Note: pt is here for follow up and has good days and bad days, better in am than in afternoon, pt does have to use albuterol daily about 4 times a day in between nebulizer which is 3-4 times a day. 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: No Allergies No Known Allergies Allergy (Verified 07/16/24 11:19) Medication List - Last Reconciled 07/16/24 by Bailee Santacruz MD albuterol sulfate 90 mcg/actuation 2 puffs inhalation Q4-6H PRN 90 days aspirin 81 mg PO .qod atorvastatin 20 mg PO DAILY glucosamine HCl 1,500 mg PO DAILY guaifenesin ER (Mucinex) 600 mg PO DAILY ipratropium-albuterol 0.5 mg-3 mg(2.5 mg base)/3 mL 3 mL inhalation QID PRN multivitamin (Daily Multi-Vitamin tablet) 1 tab PO DAILY prednisone 20 mg PO BID 5 days silver sulfadiazine 1% appl topical BID Symbicort 160-4.5 mcg/actuation (budesonide-formoterol) 2 puffs inhalation BID 90 days NS Do you need a note to return to daycare/school/sports/work: No HPI HPI COPD: Details: Osbaldo is 68 years old pleasant gentleman with advanced chronic obstructive pulmonary disease. Comes after 4 months. for his routine follow-up Has been doing well and stable in the last 4 months. Luckily he has not gotten any acute infections. He is up to date with vaccines . Uses O2 3 L/minute 24 hours a day. Mostly staying in the house and goes outdoors only for short trips. [facility] Medical History Respiratory failure with hypoxia Tachycardia Dyspnea on minimal exertion BPH (benign prostatic hyperplasia) Hyperlipidemia Personal history of nicotine dependence Pulmonary nodules COPD (chronic obstructive pulmonary disease) Surgical History History of Mohs micrographic surgery for skin cancer History of cataract surgery History of right inguinal hernia repair Social History Patient Tobacco Use Status: Former Tobacco user Years Smoked: 50 Review of Systems Const All systems reviewed & are unremarkable except as noted in HPI and below Eyes Reports no additional complaints ENT Reports nasal congestion (Off and on, but now every day for the last 3-4 days) Card Denies irregular heart rhythm, Denies leg edema and Reports dyspnea on exertion Resp Reports as per HPI and Reports dyspnea on exertion GI Reports no additional complaints Reports no additional complaints Musc Reports no additional complaints Skin/Breast Reports system reviewed and no additional complaints, except as documented Neuro Reports no additional complaints Psych Reports no additional complaints Physical Exam Vital Signs: Last Vital Signs Pulse 102 H 07/16/24 10:57 BP 110/60 07/16/24 10:57 Pulse Ox 93 07/16/24 10:57 Oxygen Delivery Method Nasal Cannula 07/16/24 10:57 Oxygen Flow Rate 3 07/16/24 10:57 BMI result Body Mass Index 16.9 Const General: comfortable, no acute distress, alert and awake Orientation/consciousness: patient oriented x3 HEENT Head: Yes normal to inspection General nose exam: No nasal polyps present and No nasal discharge present Face and sinus: Yes sinuses nontender Mouth: oropharynx normal Throat: Yes posterior oropharynx normal Eyes General: appearance normal, both eyes and all related structures Neck Neck: Yes normal visual inspection, Yes no lymphadenopathy, Yes trachea midline and Yes no JVD Thyroid: Thyroid normal Chest Chest palpation & inspection: normal inspection of the chest, normal palpation of entire chest wall and no tenderness Resp Other: PERCUSSION NOTE IS HYPER-RESONANT, BREATH SOUNDS ARE VERY DISTANT WITH PROLONGED EXPIRATORY PHASE. BUT NO WHEEZES RHONCHI OR CREPS ARE HEARD. Cardio Palpation: normal PMI Rate: regular rate Rhythm: regular rhythm Heart sounds: no gallops and no murmurs GI Palpation (GI): Soft to palpation, nontender, No hepatosplenomegaly present and no masses Auscultation: normal bowel sounds Back/Spine/Pelvis Thoracic/Lumbar Spine: thoracic and lumbar spine normal to inspection Skin General skin exam: no rashes or lesions noted Neuro General: patient oriented x3 and no focal motor deficits Cranial nerves: Yes CN's II-XII intact bilaterally Extrem General: Yes normal to inspection, Yes no clubbing, cyanosis or edema and Yes no calf tenderness Psych Appearance: grossly normal and well kempt Speech and movement: Normal speech and movement present Assessment & Plan Assessment & Plan (1) Personal history of nicotine dependence: Comment: (former smoker, 1ppd x 50yrs, 50pyh, quit ~04/2021) Code(s): Z87.891 - Personal history of nicotine dependence Category: Medical Plan: Continue to participate in Annual lung screening program (2) Pulmonary nodules: Comment: Pulmonary nodule in left upper lobe 4 mm has actually decreased in size. Has a few tiny calcified micro nodules, benign at this time. Code(s): R91.8 - Other nonspecific abnormal finding of lung field Category: Medical Plan: Continue to participate in annual lung screening program (3) COPD (chronic obstructive pulmonary disease): Comment: Advanced COPD . Patient is well aware of this. Symptomatically well controlled , EXCEPT FOR DYSPNEA ON WALKING AROUND, Better in the mornings and somewhat worse in the afternoons. Code(s): J44.9 - Chronic obstructive pulmonary disease, unspecified Category: Medical Plan: Symbicort 160-4.5 2 puffs b.i.d.. Ipratropium-albuterol solution in the nebulizer t.i.d.. Albuterol solution in the nebulizer q.4 hours p.r.n.. Mucinex 600 mg p.o. daily Use multivitamin with DE every day (4) Respiratory failure with hypoxia: Comment: He has the hypoxemia which gets worse on walking around. Code(s): J96.91 - Respiratory failure, unspecified with hypoxia Category: Medical Plan: Continue to use O2 3 L/minute 24 hours a day . Coding Level of Care Code Est Pt Level 3 (25291) Diagnoses Personal history of nicotine dependence Z87.891 Pulmonary nodules R91.8 COPD (chronic obstructive pulmonary disease) J44.9 Respiratory failure with hypoxia J96.91
[2024-07-16 10:57] VITALS: BP 110/60; PULSE 102; O2SAT 93; BMI 16.9
== END 2024-07-16 11:21 | disposition home or self-care (01) ==
PROVIDERS: PCP Internal Medicine Sports Medicine; Visit Provider Internal Medicine
DX: Z87.891 Personal history of nicotine dependence (principal); R91.8 Other nonspecific abnormal finding of lung field; J44.9 Chronic obstructive pulmonary disease, unspecified; J96.91 Respiratory failure, unspecified with hypoxia
CPT/HCPCS: 99213

== ENCOUNTER → 2024-07-16 10:40 | Outpatient (BNVA) | payer MEDICARE, SELFPAY | PROVIDERS: PCP Internal Medicine Sports Medicine; Visit Provider Internal Medicine | DX: J44.9 Chronic obstructive pulmonary disease, unspecified (principal); R91.8 Other nonspecific abnormal finding of lung field; J96.91 Respiratory failure, unspecified with hypoxia; Z87.891 Personal history of nicotine dependence | CPT/HCPCS: 99212 ==

== ENCOUNTER 2024-11-06 09:08 | Outpatient (AMB) | payer MEDICARE, SELFPAY ==
[2024-11-06 09:14] VITALS: BP 110/58; PULSE 102; O2SAT 93; BMI 17.3
--- NOTE | 2024-11-06 09:14 | MHC.OFFVIS ---
Vital Signs 11/06/24 09:14 Height 5 ft 9 in Weight 116 lb 13.52 oz BMI 17.3 BP 110/58 L Blood Pressure Location Lt brachial Position Sitting Pulse 102 H Pulse Source Pulse Oximeter Pulse Oximetry (%) 93 Oxygen Delivery Method Nasal Cannula Oxygen Flow Rate 4 Intake Visit Reasons: COPD Intake Note: pt is here for follow up and had to do a burst of prednisone and states he still feels tight in chest, using nebulizer tid to qid [facility] Technician Required: No Allergies No Known Allergies Allergy (Verified 11/06/24 09:36) Medication List - Last Reconciled 11/06/24 by Bailee Santacruz MD albuterol sulfate 90 mcg/actuation 2 puffs inhalation Q4-6H PRN 90 days aspirin 81 mg PO .qod atorvastatin 20 mg PO DAILY glucosamine HCl 1,500 mg PO DAILY guaifenesin ER (Mucinex) 600 mg PO DAILY ipratropium-albuterol 0.5 mg-3 mg(2.5 mg base)/3 mL 3 mL inhalation QID PRN multivitamin (Daily Multi-Vitamin tablet) 1 tab PO DAILY prednisone 20 mg PO BID 5 days silver sulfadiazine 1% appl topical BID Symbicort 160-4.5 mcg/actuation (budesonide-formoterol) 2 puffs inhalation BID 90 days NS Do you need a note to return to daycare/school/sports/work: No HPI HPI COPD: Details: THIS 69 YEARS OLD GENTLEMAN WITH ADVANCED CHRONIC OBSTRUCTIVE PULMONARY DISEASE IS HERE FOR HIS 4 MONTHS FOLLOW-UP. HE REMAINED STABLE THROUGHOUT THE LAST 4 MONTHS EXCEPT SINCE LAST WEEK HE WAS HAVING COLD SYMPTOMS AND INCREASED CONGESTION OF THE CHEST WITH COUGH. SO HE HAS TAKEN PREDNISONE 20 B.I.D. FOR 5 DAYS, DID NOT NEED ANY ANTIBIOTIC, DOES NOT HAVE FEVER OR CHILLS. HE DOES HAVE SOME INCREASE IN THE COUGH BUT MOSTLY NONPRODUCTIVE. TODAY HE IS STILL LITTLE BIT WEAK OTHERWISE AT BASELINE. [facility] Medical History Respiratory failure with hypoxia Tachycardia Dyspnea on minimal exertion BPH (benign prostatic hyperplasia) Hyperlipidemia Personal history of nicotine dependence Pulmonary nodules COPD (chronic obstructive pulmonary disease) Surgical History History of Mohs micrographic surgery for skin cancer History of cataract surgery History of right inguinal hernia repair Social History Patient Tobacco Use Status: Former Tobacco user Years Smoked: 50 Review of Systems Const All systems reviewed & are unremarkable except as noted in HPI and below Eyes Reports no additional complaints ENT Reports nasal congestion (Off and on, but now every day for the last 3-4 days) Card Denies irregular heart rhythm, Denies leg edema and Reports dyspnea on exertion Resp Reports as per HPI and Reports dyspnea on exertion GI Reports no additional complaints Reports no additional complaints Musc Reports no additional complaints Skin/Breast Reports system reviewed and no additional complaints, except as documented Neuro Reports no additional complaints Psych Reports no additional complaints Physical Exam Vital Signs: Last Vital Signs Pulse 102 H 11/06/24 09:14 BP 110/58 L 11/06/24 09:14 Pulse Ox 93 11/06/24 09:14 Oxygen Delivery Method Nasal Cannula 11/06/24 09:14 Oxygen Flow Rate 4 11/06/24 09:14 BMI result Body Mass Index 17.3 Const General: comfortable, no acute distress, alert and awake Orientation/consciousness: patient oriented x3 HEENT Head: Yes normal to inspection General nose exam: No nasal polyps present and No nasal discharge present Face and sinus: Yes sinuses nontender Mouth: oropharynx normal Throat: Yes posterior oropharynx normal Eyes General: appearance normal, both eyes and all related structures Neck Neck: Yes normal visual inspection, Yes no lymphadenopathy, Yes trachea midline and Yes no JVD Thyroid: Thyroid normal Chest Chest palpation & inspection: normal inspection of the chest, normal palpation of entire chest wall and no tenderness Resp Other: PERCUSSION NOTE IS HYPER-RESONANT, BREATH SOUNDS ARE VERY DISTANT WITH PROLONGED EXPIRATORY PHASE. BUT NO WHEEZES RHONCHI OR CREPS ARE HEARD. Cardio Palpation: normal PMI Rate: regular rate Rhythm: regular rhythm Heart sounds: no gallops and no murmurs GI Palpation (GI): Soft to palpation, nontender, No hepatosplenomegaly present and no masses Auscultation: normal bowel sounds Back/Spine/Pelvis Thoracic/Lumbar Spine: thoracic and lumbar spine normal to inspection Skin General skin exam: no rashes or lesions noted Neuro General: patient oriented x3 and no focal motor deficits Cranial nerves: Yes CN's II-XII intact bilaterally Extrem General: Yes normal to inspection, Yes no clubbing, cyanosis or edema and Yes no calf tenderness Psych Appearance: grossly normal and well kempt Speech and movement: Normal speech and movement present Assessment & Plan Assessment & Plan (1) COPD (chronic obstructive pulmonary disease): Comment: Advanced COPD . He just recovered from an acute exacerbation due to nonspecific acute viral bronchitis. Had to take prednisone 20 mg b.i.d.. He is better but still somewhat weaker than usual Code(s): J44.9 - Chronic obstructive pulmonary disease, unspecified Category: Medical Plan: Continue to use: Nebulizer with ipratropium/albuterol solution Q 6 hours while awake Symbicort 160-4.52 puffs b.i.d. Albuterol HFA 2 puffs Q 6 hours p.r.n.. Prednisone 20 mg b.i.d. in for 5 days just keep on hand . (2) Pulmonary nodules: Comment: Pulmonary nodule in left upper lobe 4 mm has actually decreased in size. Has a few tiny calcified micro nodules, benign at this time. Code(s): R91.8 - Other nonspecific abnormal finding of lung field Category: Medical Plan: Continue in annual lung screening program (3) Personal history of nicotine dependence: Comment: (former smoker, 1ppd x 50yrs, 50pyh, quit ~04/2021) Code(s): Z87.891 - Personal history of nicotine dependence Category: Medical Plan: Commended for quitting smoking and encouraged that he should not go back to smoking at all. (4) Respiratory failure with hypoxia: Comment: He has the hypoxemia which gets worse on walking around. Code(s): J96.91 - Respiratory failure, unspecified with hypoxia Category: Medical Plan: Use O2 2 L/minute at rest and may increase to 3 L/minute when walking in the house are outdoors. Medications: New prednisone 20 mg PO BID 5 days 10 tabs 1RF copd excerbation Coding Level of Care Code Est Pt Level 3 (94583) Diagnoses COPD (chronic obstructive pulmonary disease) J44.9 Pulmonary nodules R91.8 Personal history of nicotine dependence Z87.891 Respiratory failure with hypoxia J96.91
== END 2024-11-06 09:37 | disposition home or self-care (01) ==
PROVIDERS: PCP Internal Medicine Sports Medicine; Visit Provider Internal Medicine
DX: J44.9 Chronic obstructive pulmonary disease, unspecified (principal); R91.8 Other nonspecific abnormal finding of lung field; Z87.891 Personal history of nicotine dependence; J96.91 Respiratory failure, unspecified with hypoxia
CPT/HCPCS: 99213

== ENCOUNTER → 2024-11-06 09:08 | Outpatient (BNVA) | payer MEDICARE, SELFPAY | PROVIDERS: PCP Internal Medicine Sports Medicine; Visit Provider Internal Medicine | DX: J44.9 Chronic obstructive pulmonary disease, unspecified (principal); J96.91 Respiratory failure, unspecified with hypoxia; R91.8 Other nonspecific abnormal finding of lung field; Z87.891 Personal history of nicotine dependence | CPT/HCPCS: 99212 ==

== ENCOUNTER 2024-12-03 13:11 | Outpatient (AMB) | payer MEDICARE, SELFPAY ==
--- NOTE | 2024-12-03 13:26 | A.OFFVIS_ITS ---
Vital Signs 12/03/24 13:27 Height 5 ft 9 in Weight 113 lb 8.609 oz BMI 16.8 BP 102/58 L Blood Pressure Location Lt brachial Position Sitting Pulse 129 H Pulse Source Pulse Oximeter Pulse Oximetry (%) 94 Oxygen Delivery Method Nasal Cannula Oxygen Flow Rate 3 Intake Visit Reasons: pneumonia f/u nix Intake Note: pt is here for follow up of hospital, he feels like he is getting stronger. 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 Required: No Allergies No Known Allergies Allergy (Verified 12/03/24 13:31) Medication List - Last Reviewed 12/03/24 by SMAM Pryor albuterol sulfate 90 mcg/actuation 2 puffs inhalation Q4-6H PRN 90 days aspirin 81 mg PO .qod atorvastatin 20 mg PO DAILY glucosamine HCl 1,500 mg PO DAILY guaifenesin ER (Mucinex) 600 mg PO DAILY ipratropium-albuterol 0.5 mg-3 mg(2.5 mg base)/3 mL 3 mL inhalation QID PRN multivitamin (Daily Multi-Vitamin tablet) 1 tab PO DAILY prednisone 20 mg PO BID 5 days prednisone 20 mg PO BID 5 days silver sulfadiazine 1% appl topical BID Symbicort 160-4.5 mcg/actuation (budesonide-formoterol) 2 puffs inhalation BID 90 days NS [facility] Medical History Respiratory failure with hypoxia Tachycardia Dyspnea on minimal exertion BPH (benign prostatic hyperplasia) Hyperlipidemia Personal history of nicotine dependence Pulmonary nodules COPD (chronic obstructive pulmonary disease) Surgical History History of Mohs micrographic surgery for skin cancer History of cataract surgery History of right inguinal hernia repair Social History Patient Tobacco Use Status: Former Tobacco user Years Smoked: 50 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
[2024-12-03 13:27] VITALS: BP 102/58; PULSE 129; O2SAT 94; BMI 16.8
--- NOTE | 2024-12-03 13:28 | A.OFFVIS_ITS ---
Vital Signs 12/03/24 13:27 Height 5 ft 9 in Weight 113 lb 8.609 oz BMI 16.8 BP 102/58 L Blood Pressure Location Lt brachial Position Sitting Pulse 129 H Pulse Source Pulse Oximeter Pulse Oximetry (%) 94 Oxygen Delivery Method Nasal Cannula Oxygen Flow Rate 3 Intake Visit Reasons: pneumonia f/u nix Allergies No Known Allergies Allergy (Verified 12/03/24 13:57) Medication List - Last Reconciled 12/03/24 by Bailee Santacruz MD albuterol sulfate 90 mcg/actuation 2 puffs inhalation Q4-6H PRN 90 days aspirin 81 mg PO .qod atorvastatin 20 mg PO DAILY glucosamine HCl 1,500 mg PO DAILY guaifenesin ER (Mucinex) 600 mg PO DAILY ipratropium-albuterol 0.5 mg-3 mg(2.5 mg base)/3 mL 3 mL inhalation QID PRN multivitamin (Daily Multi-Vitamin tablet) 1 tab PO DAILY prednisone 20 mg PO BID 5 days prednisone 20 mg PO BID 5 days silver sulfadiazine 1% appl topical BID Symbicort 160-4.5 mcg/actuation (budesonide-formoterol) 2 puffs inhalation BID 90 days NS HPI HPI pneumonia f/u nix : Details: MR. PINEDA , 69 YEARS OLD GENTLEMAN IS A CASE OF ADVANCED CHRONIC OBSTRUCTIVE PULMONARY DISEASE. RECENTLY TREATED FOR AN ACUTE EXACERBATION DUE TO PNEUMONIA, FOR WHICH HE WAS HOSPITALIZED AT [facility] FROM 11/20TO 11/24/24. AFTER DISCHARGE HE HAS BEEN ON A TAPERING DOSE OF PREDNISONE WHICH HE WILL BE FINISHING IN THE NEXT 3 DAYS. HE HAS BEEN FEELING BETTER AFTER THE HOSPITALIZATION, AND CLAIMS THAT EVEN HIS COUGH IS BETTER. HE CAN WALK AROUND IN THE HOUSE AND OUTSIDE FOR SHORT DISTANCES. HE STAYS ON O2, BETWEEN 2-3 L/MINUTE, AND HIS O2 SAT HAS REMAINED IN MID 90S. HE IS HERE TODAY FOR POST HOSPITALIZATION FOLLOW-UP. [facility] Medical History Respiratory failure with hypoxia Tachycardia Dyspnea on minimal exertion BPH (benign prostatic hyperplasia) Hyperlipidemia Personal history of nicotine dependence Pulmonary nodules COPD (chronic obstructive pulmonary disease) Surgical History History of Mohs micrographic surgery for skin cancer History of cataract surgery History of right inguinal hernia repair Social History Patient Tobacco Use Status: Former Tobacco user Years Smoked: 50 Review of Systems Const All systems reviewed & are unremarkable except as noted in HPI and below Eyes Reports no additional complaints ENT Reports nasal congestion (Off and on, but now every day for the last 3-4 days) Card Denies irregular heart rhythm, Denies leg edema and Reports dyspnea on exertion Resp Reports as per HPI and Reports dyspnea on exertion GI Reports no additional complaints Reports no additional complaints Musc Reports no additional complaints Skin/Breast Reports system reviewed and no additional complaints, except as documented Neuro Reports no additional complaints Psych Reports no additional complaints Physical Exam Const General: comfortable, no acute distress, alert and awake Orientation/consciousness: patient oriented x3 HEENT Head: Yes normal to inspection General nose exam: No nasal polyps present and No nasal discharge present Face and sinus: Yes sinuses nontender Mouth: oropharynx normal Throat: Yes posterior oropharynx normal Eyes General: appearance normal, both eyes and all related structures Neck Neck: Yes normal visual inspection, Yes no lymphadenopathy, Yes trachea midline and Yes no JVD Thyroid: Thyroid normal Chest Chest palpation & inspection: normal inspection of the chest, normal palpation of entire chest wall and no tenderness Resp Other: PERCUSSION NOTE IS HYPER-RESONANT, BREATH SOUNDS ARE VERY DISTANT WITH PROLONGED EXPIRATORY PHASE. BUT NO WHEEZES RHONCHI OR CREPS ARE HEARD. Cardio Palpation: normal PMI Rate: regular rate Rhythm: regular rhythm Heart sounds: no gallops and no murmurs GI Palpation (GI): Soft to palpation, nontender, No hepatosplenomegaly present and no masses Auscultation: normal bowel sounds Back/Spine/Pelvis Thoracic/Lumbar Spine: thoracic and lumbar spine normal to inspection Skin General skin exam: no rashes or lesions noted Neuro General: patient oriented x3 and no focal motor deficits Cranial nerves: Yes CN's II-XII intact bilaterally Extrem General: Yes normal to inspection, Yes no clubbing, cyanosis or edema and Yes no calf tenderness Psych Appearance: grossly normal and well kempt Speech and movement: Normal speech and movement present Results Reviewed Results Reviewed: NOTES FROM [facility] ARE REVIEWED AND DISCUSSED WITH THE PATIENT. Assessment & Plan Assessment & Plan (1) COPD (chronic obstructive pulmonary disease): Comment: Advanced COPD . He just recovered from an acute exacerbation due to pneumonia , treated in [facility],/[facility], And he is on a tapering dose of prednisone which he will be completing in the next 3 days. Claims that he is feeling almost at his baseline and has very little cough or expectoration. Is main issue is that he gets short of breath on minimal exertion. He and his family did discuss about placement of [place] valves. Code(s): J44.9 - Chronic obstructive pulmonary disease, unspecified Category: Medical Plan: Advised to complete the course of prednisone. Continue using Symbicort. 160-4.52 puffs b.i.d. Continue ipratropium-albuterol solution in the nebulizer use Q 6 hours while awake. Discussed the further options and I think the best option at this time would be to go for pulmonary rehab program. In the meantime we will look into, the possibility of [place] valves placement, and then refer him for that procedure (2) Pulmonary nodules: Comment: Pulmonary nodule in left upper lobe 4 mm has actually decreased in size. Has a few tiny calcified micro nodules, benign at this time. Code(s): R91.8 - Other nonspecific abnormal finding of lung field Category: Medical Plan: as above (3) Personal history of nicotine dependence: Comment: (former smoker, 1ppd x 50yrs, 50pyh, quit ~04/2021) Code(s): Z87.891 - Personal history of nicotine dependence Category: Medical Plan: He is not smoking at all. (4) Respiratory failure with hypoxia: Comment: He has the hypoxemia which gets worse on walking around. Code(s): J96.91 - Respiratory failure, unspecified with hypoxia Category: Medical Plan: Advised to continue using oxygen, and keep O2 sat between 90-92%, Orders: Orders PFT pulmonary function test Today J44.9 - Chronic obstructive pulmonary disease, unspecified, J96.91 - Respiratory failure, unspecified with hypoxia, Z87.891 - Personal history of nicotine dependence Coding Level of Care Code Est Pt Level 4 (48411) Diagnoses COPD (chronic obstructive pulmonary disease) J44.9 Pulmonary nodules R91.8 Personal history of nicotine dependence Z87.891 Respiratory failure with hypoxia J96.91
--- OUTSIDE RECORDS SUMMARY | 2024-12-03 14:53 | XMS_ITS | Clinical Summary ---
Author Organization [facility] Address [address] [place] [address] Care Team Providers Care Proof Technician Name Role Phone Unavailable Primary Care Provider Unavailabl e Social History Tobacco Use Types Packs/Day Years Used Date Smoking Tobacco: Never Assessed Sex and Gender Information Value Date Recorded Sex Assigned at Not on file Gender Identity Not on file Sexual Orientation Not on file Plan of Treatment Health Maintenance Due Date Last Done Comments Hepatitis C Virus Screening 1955 DTaP/Tdap/Td Vaccines (1 - Tdap) 1972 Pneumococcal Vaccines 50+ (1 of 1 - PCV) 2003 Zoster (Shingles) Vaccine (1 of 2) 2003 COVID-19 Vaccine ( - 2023-2 5 season) 2024 RSV Vaccine 60 years and old er and Patients (1 - 1-dose 75+ series) 2028 Hepatitis B Vaccines Aged Out No long er eligible based on patient's age to complete this topic
== END 2024-12-03 13:53 | disposition home or self-care (01) ==
LOC: HO.HPS 13:11
PROVIDERS: PCP Internal Medicine; Visit Provider Internal Medicine
DX: J44.9 Chronic obstructive pulmonary disease, unspecified (principal); R91.8 Other nonspecific abnormal finding of lung field; Z87.891 Personal history of nicotine dependence; J96.91 Respiratory failure, unspecified with hypoxia
CPT/HCPCS: 99214

== ENCOUNTER → 2024-12-03 13:11 | Outpatient (BNVA) | payer MEDICARE, SELFPAY | PROVIDERS: PCP Internal Medicine; Visit Provider Internal Medicine | DX: J44.9 Chronic obstructive pulmonary disease, unspecified (principal); R91.8 Other nonspecific abnormal finding of lung field; J96.91 Respiratory failure, unspecified with hypoxia; Z79.52 Long term (current) use of systemic steroids; Z99.81 Dependence on supplemental oxygen; Z87.891 Personal history of nicotine dependence | CPT/HCPCS: 99212 ==

== ENCOUNTER 2025-01-03 07:47 | Outpatient (REF) | payer MEDICARE, SELFPAY ==
--- OUTSIDE RECORDS SUMMARY | 2025-01-03 07:51 | XMS_ITS | Clinical Summary ---
Author Organization [facility] Address [address] [place] [address] Care Team Providers Care Surgical Services Tech Name Role Phone Unavailable Primary Care Provider [...]
--- NOTE | 2025-01-03 07:52 | PFT_ITS ---
Flows: FEV1: 22 % of predicted at 0.69 L FVC: 65 % of predicted at 2.65 L FEV1/FVC: 26 % Bronchodilator response: Absent Volumes: Total lung capacity: 114 % of predicted at 7.85 L Residual volume: 208 % of predicted at 5.16 L Slow vital capacity: 62 % of predicted at 2.69 L Expiratory reserve volume: 106 % of predicted at 1.26 L Diffusion capacity: Very severely decreased Impression: Very severe obstructive ventilatory defect with no bronchodilator response. Increased residual volume suggests air trapping. Decreased diffusion capacity suggests emphysema. MTDD
[2025-01-03 08:53] VITALS: PULSE 97; O2SAT 97
== END 2025-01-03 07:48 | disposition home or self-care (01) ==
LOC: HO.RESP 07:47
PROVIDERS: PCP Internal Medicine Sports Medicine; Visit Provider Internal Medicine
DX: J44.9 Chronic obstructive pulmonary disease, unspecified (principal); J96.91 Respiratory failure, unspecified with hypoxia; Z87.891 Personal history of nicotine dependence
CPT/HCPCS: 94010; 94640; 94727; 94729

== ENCOUNTER → 2025-01-03 07:52 | Outpatient (BNV) | payer MEDICARE, SELFPAY | PROVIDERS: PCP Internal Medicine Sports Medicine; Visit Provider Internal Medicine Pulmonary Disease | DX: J44.9 Chronic obstructive pulmonary disease, unspecified (principal); J96.91 Respiratory failure, unspecified with hypoxia; Z87.891 Personal history of nicotine dependence | CPT/HCPCS: 94060 ==

== ENCOUNTER 2025-01-21 09:44 | Outpatient (REF) | payer MEDICARE, SELFPAY ==
--- NOTE | ~2025-01-21 | CT_ITS ---
CLINICAL HISTORY: Z87.891 - Personal history of nicotine dependence Examination CT lung cancer screening History Screening examination performed for pulmonary nodules Technique Axial CT images of the chest using low-dose technique. Effective radiation dose total: 41 mGy-cm, CTDIvol 0.7 mGy. Referring provider counseled the patient on shared decision-making for LDCT screening. Additional counseling was provided on smoking cessation. Comparison: CT/PA/SR - CT LUNG SCREENING - 01/18/24 10:[address]/PA/SR - CT LUNG SCREENING - 12/31/22 08:58 EDT Findings: Lungs: There is new nodularity versus scarring in the left upper lobe measuring 2.2 cm at the lung apex spiculation (series 6, image 19 ) 1.7 cm more inferiorly with spiculation ( series 6, image 44) up to 1.0 cm in the anterior segment ( series 6, image 72). New increased subpleural reticulation/ scarring in the anterior segment of the right upper lobe (series 6 images 79 through 91). Advanced destructive centrilobular emphysema. Substantial paraseptal emphysema. Trace amount of secretions in the airways with mild bronchial wall thickening. Unchanged atelectasis of the right middle lobe. Stable scarring at right lung apex. Calcification associated with scarring at the lung apices Coronary artery calcifications: Severe Other: Severe calcification of the aortic valve. Severe calcified atherosclerotic disease Limited upper abdomen: Unremarkable Impression: LungRADS 4X - Suspicious: Diagnostic Chest CT with or without contrast, PET/CT, and/or tissue sampling recommended depending on the probability of malignancy and comorbidities. ##L4X# Category 1: Normal; continue annual screening Category 2: Benign appearance or behavior, continue annual screening Category 3: Probably benign, [address] recommended Category 4A: Suspicious, [address] recommended; may consider PET/CT Category 4B: Suspicious, Additional diagnostics and/or tissue sampling recommended Category 4X: Suspicious, Additional diagnostics and/or tissue sampling recommended Category 0: Recalls (incomplete screen due to Incomplete coverage, Noise, Respiratory motion, Expiration, Obscured by acute abnormality) This document has been electronically signed by: Patrizia Pascal MD on 01/21/2025 17:02:23
--- OUTSIDE RECORDS SUMMARY | 2025-01-21 10:58 | XMS_ITS | Clinical Summary ---
Author Organization [facility] Address [address] [place] [address] Care Team Providers Care Sand And Gravel Plant Operator Name Role Phone Unavailable Primary Care Provider Unavailabl e Social History Tobacco Use Types Packs/Day Years Used Date Smoking Tobacco: Never Assessed Sex and Gender Information Value Date Recorded Sex Assigned at Not on file Legal Sex Male 8:00 PM EST Gender Identity Not on file Sexual Orientation [...]
== END 2025-01-21 09:45 | disposition home or self-care (01) ==
LOC: HO.CT 09:44
PROVIDERS: PCP Internal Medicine Sports Medicine; Visit Provider Physician Assistant Medical
DX: Z12.2 Encounter for screening for malignant neoplasm of respiratory organs (principal); Z87.891 Personal history of nicotine dependence
CPT/HCPCS: 71271; 99212

== ENCOUNTER → 2025-01-21 09:46 | Outpatient (BNV) | payer MEDICARE, SELFPAY | PROVIDERS: PCP Internal Medicine Sports Medicine; Visit Provider Radiology Diagnostic Radiology | DX: Z87.891 Personal history of nicotine dependence (principal) | CPT/HCPCS: 71271 ==

== ENCOUNTER 2025-01-21 10:06 | Outpatient (AMB) | payer MEDICARE, SELFPAY ==
[2025-01-21 10:21] VITALS: BP 122/60; PULSE 104; O2SAT 93; BMI 18.2
--- NOTE | 2025-01-21 10:21 | MHC.OFFVIS ---
Vital Signs 01/21/25 10:21 Height 5 ft 9 in Weight 123 lb 0.46 oz BMI 18.2 BP 122/60 Blood Pressure Location Lt brachial Position Sitting Pulse 104 H Pulse Source Pulse Oximeter Pulse Oximetry (%) 93 Oxygen Delivery Method Nasal Cannula Oxygen Flow Rate 3 Intake Visit Reasons: copd Intake Note: pt is here for follow up and states he is breathing is lately not great, feels like he is back to where he was prior to pneumonia. 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 Required: No Allergies No Known Allergies Allergy (Verified 01/21/25 10:45) Medication List - Last Reconciled 01/21/25 by Bailee Santacruz MD albuterol sulfate 90 mcg/actuation 2 puffs inhalation Q4-6H PRN 90 days aspirin 81 mg PO .qod atorvastatin 80 mg PO DAILY glucosamine HCl 1,500 mg PO DAILY guaifenesin ER (Mucinex) 600 mg PO DAILY ipratropium-albuterol 0.5 mg-3 mg(2.5 mg base)/3 mL 3 mL inhalation QID multivitamin (Daily Multi-Vitamin tablet) 1 tab PO DAILY prednisone 20 mg PO BID PRN silver sulfadiazine 1% appl topical BID Symbicort 160-4.5 mcg/actuation (budesonide-formoterol) 2 puffs inhalation BID 90 days NS Do you need a note to return to daycare/school/sports/work: No HPI HPI copd: Details: STEW 69 YEARS OLD GENTLEMAN WITH ADVANCED CHRONIC OBSTRUCTIVE PULMONARY DISEASE IS HERE FOR FOLLOW-UP. SINCE HIS LAST VISIT HE HAS REMAINED STABLE, BUT HE GETS SHORT OF BREATH ON MINIMAL EXERTION, DOES HAVE FREQUENT COUGH AND NOT ABLE TO BRING UP MUCH MUCUS. HE IS ON OXYGEN 2 L/MINUTE CONTINUOUSLY, USES DUONEB UPDRAFTS 4 TIMES A DAY, IN ADDITION TO SYMBICORT 160-4.52 PUFFS B.I.D.. HE HAS PUT ON ABOUT 10 LB OF WEIGHT SINCE HIS LAST VISIT, AND IS EATING BETTER. PULMONARY FUNCTION TEST PERFORMED ON 01/03/25 IS CONSISTENT WITH VERY SEVERE OBSTRUCTIVE AIRWAY DISORDER. [facility] Medical History Respiratory failure with hypoxia Tachycardia Dyspnea on minimal exertion BPH (benign prostatic hyperplasia) Hyperlipidemia Personal history of nicotine dependence Pulmonary nodules COPD (chronic obstructive pulmonary disease) Surgical History History of Mohs micrographic surgery for skin cancer History of cataract surgery History of right inguinal hernia repair Social History Patient Tobacco Use Status: Former Tobacco user Years Smoked: 50 Review of Systems Const All systems reviewed & are unremarkable except as noted in HPI and below Eyes Reports no additional complaints ENT Reports nasal congestion (Off and on, but now every day for the last 3-4 days) Card Denies irregular heart rhythm, Denies leg edema and Reports dyspnea on exertion Resp Reports as per HPI and Reports dyspnea on exertion GI Reports no additional complaints Reports no additional complaints Musc Reports no additional complaints Skin/Breast Reports system reviewed and no additional complaints, except as documented Neuro Reports no additional complaints Psych Reports no additional complaints Physical Exam Vital Signs: Last Vital Signs Pulse 104 H 01/21/25 10:21 BP 122/60 01/21/25 10:21 Pulse Ox 93 01/21/25 10:21 Oxygen Delivery Method Nasal Cannula 01/21/25 10:21 Oxygen Flow Rate 3 01/21/25 10:21 BMI result Body Mass Index 18.2 Const General: comfortable, no acute distress, alert and awake Orientation/consciousness: patient oriented x3 HEENT Head: Yes normal to inspection General nose exam: No nasal polyps present and No nasal discharge present Face and sinus: Yes sinuses nontender Mouth: oropharynx normal Throat: Yes posterior oropharynx normal Eyes General: appearance normal, both eyes and all related structures Neck Neck: Yes normal visual inspection, Yes no lymphadenopathy, Yes trachea midline and Yes no JVD Thyroid: Thyroid normal Chest Chest palpation & inspection: normal inspection of the chest, normal palpation of entire chest wall and no tenderness Resp Other: PERCUSSION NOTE IS HYPER-RESONANT, BREATH SOUNDS ARE VERY DISTANT WITH PROLONGED EXPIRATORY PHASE. BUT NO WHEEZES RHONCHI OR CREPS ARE HEARD. Cardio Palpation: normal PMI Rate: regular rate Rhythm: regular rhythm Heart sounds: no gallops and no murmurs GI Palpation (GI): Soft to palpation, nontender, No hepatosplenomegaly present and no masses Auscultation: normal bowel sounds Back/Spine/Pelvis Thoracic/Lumbar Spine: thoracic and lumbar spine normal to inspection Skin General skin exam: no rashes or lesions noted Neuro General: patient oriented x3 and no focal motor deficits Cranial nerves: Yes CN's II-XII intact bilaterally Extrem General: Yes normal to inspection, Yes no clubbing, cyanosis or edema and Yes no calf tenderness Psych Appearance: grossly normal and well kempt Speech and movement: Normal speech and movement present Results Reviewed Results Reviewed: PULMONARY FUNCTION TEST. ,FVC 65% FEV1 22%, FEF 25-75 ONLY 10% . THERE WAS NO SIGNIFICANT RESPONSE TO BRONCHODILATOR THERAPY TLC 114% RV 208% DLCO TEST NOT SATISFACTORY. Assessment & Plan Assessment & Plan (1) COPD (chronic obstructive pulmonary disease): Comment: Advanced COPD . He just recovered from an acute exacerbation due to pneumonia , treated in [facility],/[facility], HE DID COMPLETE HIS COURSE OF PREDNISONE. CURRENTLY ON DUONEB UPDRAFTS AND SYMBICORT, WELL ON OXYGEN 2 L/MINUTE. LOOKING FOR ANY FURTHER ADJUSTMENT IN HIS TREATMENT PLAN AND, STILL WAITING TO HAVE A VISIT WITH INSPECTOR OUTSIDE PRODUCTION AT [facility] AND DISCUSS ABOUT ZEPHYR VALVES THERAPY. Code(s): J44.9 - Chronic obstructive pulmonary disease, unspecified Category: Medical Plan: CONTINUE SYMBICORT 160-4.5 2 PUFFS B.I.D. ALBUTEROL HFA 2 PUFFS Q 6 HOURS P.R.N. WHEN OUTDOORS AT HOME USE IPRATROPIUM-ALBUTEROL SOLUTION IN THE NEBULIZER Q 6 HOURS WHILE AWAKE. * I WILL ADD AZITHROMYCIN 250 MG 3 DAYS A WEEK, AN ANTI-INFLAMMATORY AGENT. MAY USE MUCINEX 600 MG B.I.D. P.R.N. IF HE FEELS THERE IS SOME MUCUS STUCK IN THE AIRWAYS. THE RESULTS OF PFT EXPLAINED TO HIM AND HIS . I CONVINCED HIM TO JOIN THE PULMONARY REHAB PROGRAM. (2) Respiratory failure with hypoxia: Comment: He has the hypoxemia which gets worse on walking around. Code(s): J96.91 - Respiratory failure, unspecified with hypoxia Category: Medical Plan: USE O2 2 L/MINUTE AT REST AND MAY INCREASE TO 3-4 L/MINUTE WHEN WALKING OUTDOORS (3) Pulmonary nodules: Comment: Pulmonary nodule in left upper lobe 4 mm has actually decreased in size. Has a few tiny calcified micro nodules, benign at this time. Code(s): R91.8 - Other nonspecific abnormal finding of lung field Category: Medical Plan: NO FURTHER FOLLOW-UP FOR THESE NODULES NEEDED Orders: Orders Pulmonary Rehab Today Bailee Santacruz MD J44.9 - Chronic obstructive pulmonary disease, unspecified, J96.91 - Respiratory failure, unspecified with hypoxia Medications: New azithromycin 250 mg PO 3XW 13 tabs 3RF SEVERE COPD 30 days Bailee Santacruz MD Changed From ipratropium-albuterol 0.5 mg-3 mg(2.5 mg base)/3 mL 3 mL inhalation QID PRN 120 ea 11RF for wheezing To ipratropium-albuterol 0.5 mg-3 mg(2.5 mg base)/3 mL 3 mL inhalation QID Bailee Santacruz MD From prednisone 20 mg PO BID 5 days 10 tabs 0RF copd excerbation To prednisone 20 mg PO BID PRN Kaleb Rangel MD Coding Level of Care Code Est Pt Level 3 (51950) Diagnoses COPD (chronic obstructive pulmonary disease) J44.9 Respiratory failure with hypoxia J96.91 Pulmonary nodules R91.8
--- OUTSIDE RECORDS SUMMARY | 2025-01-21 11:44 | XMS_ITS | Clinical Summary ---
Author Organization [facility] Address [address] [place] [address] Care Team Providers Care Laborer Golf Course Name Role Phone Unavailable Primary Care Provider [...]
== END 2025-01-21 10:47 | disposition home or self-care (01) ==
LOC: HO.HPS 10:07
PROVIDERS: PCP Internal Medicine Sports Medicine; Visit Provider Internal Medicine
DX: J44.9 Chronic obstructive pulmonary disease, unspecified (principal); J96.91 Respiratory failure, unspecified with hypoxia; R91.8 Other nonspecific abnormal finding of lung field
CPT/HCPCS: 99213

== ENCOUNTER 2025-01-29 08:07 | Outpatient (REF) | payer MEDICARE, SELFPAY ==
--- NOTE | ~2025-01-29 | PE_ITS ---
EXAMINATION: FLUORINE-18 FDG PET/CT SCAN CLINICAL INFORMATION: New nodularity left upper lobe measuring 2.2 cm. TECHNIQUE: 57 minutes following the intravenous administration of 16.2 mCi of fluorine 18 FDG, images from the skull base to proximal thigh were obtained using a combined PET/CT scanner with CT scan based attenuation correction. No oral or intravenous contrast was administered. Transverse, coronal, sagittal, and volume reconstruction projections were obtained. The patient's blood glucose as determined by a finger stick, was 99 mg/dL immediately prior to injection. The radiotracer was injected intravenously through [left antecubital vein, without any complications. Total CT exam dose-length product 356 mGy-cm. * These CT images were obtained using dose optimization techniques as appropriate, variously including the following: Automated exposure control * Adjustment of mA and/or kV according to patient size (this includes techniques or standardized protocols for targeted exams where dose is matched to indication/reason for exam; i.e. extremities or head) * Use of iterative reconstruction technique COMPARISON: CT chest 01/21/2025. FINDINGS: HEAD AND NECK: No abnormal radiotracer uptake. No large intracranial hemorrhage, acute territorial infarct or significant shift of midline structures. CHEST: Ports and Devices: None Lungs: There is a left apical intense FDG activity in the apical nodule measuring at least 1 cm on axial PET slice 219/[address] slice 219/2. Pleura: No significant pleural effusion. No abnormal metabolic activity. Lymph Nodes: No tracer-avid mediastinal, hilar or internal mammary or axillary lymphadenopathy. Mediastinum: There is no significant pericardial effusion/thickening. Breasts/Chest Wall: No abnormal radiotracer uptake. ABDOMEN/PELVIS: Liver/Biliary System: No focal tracer-avid liver lesion. The gallbladder appears unremarkable. Pancreas: Normal.No pancreatic ductal dilatation. Spleen: No abnormal radiotracer uptake. No evidence of splenomegaly. Adrenal Glands: No abnormal radiotracer uptake. Kidneys: No hydronephrosis, hydroureter or renal calculi bilaterally. Bowel: There is no significant bowel dilatation to suggest obstruction. There is moderate stool seen throughout the entire colon without distention. Few scattered diverticuli noted. Small bowel loops are normal caliber. Appendix is not seen. Lymph Nodes: No tracer avid retroperitoneal, mesenteric or pelvic and/or groin lymphadenopathy. Pelvic Organs: The urinary bladder is underdistended. MUSCULOSKELETAL: No aggressive lytic or sclerotic process seen. VASCULAR: Unremarkable. THE SITE(S) OF MOST INTENSE FDG AVIDITY AND SUV MAX: PET/PET CT fusion skull to thigh IMPRESSION: Solitary 1 cm FDG avid nodule left lung apex consistent with active pulmonary nodule. On CT there is a large thick scar with mild nodularity along the most left apical of the scar. The nodularity and the thick scarring is increased on CT 01/21/25 compared to 01/18/2024. No additional nodules. No mediastinal, hilar, axillary or neck lymphadenopathy seen. Electronically signed by: Loki To MD 01/29/2025 01:33 PM EDT RP
--- OUTSIDE RECORDS SUMMARY | 2025-01-29 08:13 | XMS_ITS | Clinical Summary ---
Author Organization [facility] Address [address] [place] [address] Care Team Providers Care Gas Distribution Supervisor Name Role Phone Unavailable Primary Care Provider [...]
== END 2025-01-29 08:08 | disposition home or self-care (01) ==
LOC: HO.PET 08:07
PROVIDERS: PCP Internal Medicine Sports Medicine; Visit Provider Internal Medicine
DX: Z13.89 Encounter for screening for other disorder (principal)

== ENCOUNTER → 2025-02-20 11:18 | Day surgery (SDC) | payer MEDICARE, SELFPAY ==
--- OUTSIDE RECORDS SUMMARY | 2025-02-06 13:29 | XMS_ITS | Clinical Summary ---
Author Organization [facility] Address [address] [place] [address] Care Team Providers Care Patternmaker Pressure Cast Name Role Phone Unavailable Primary Care Provider [...]
[2025-02-20] VITALS (12 sets, daily range): BP systolic 95–141; BP diastolic 50–73; PULSE 92–113; RESP 10–24; TEMP 36.5–36.9; O2SAT 94–98; BMI 18.2
--- NOTE | ~2025-02-20 | XR_ITS ---
EXAMINATION: XR CHEST CLINICAL INFORMATION: s/p lung biopsy, r/o pneumo COMPARISON: CT biopsy left lung earlier same day. TECHNIQUE: Frontal view of the chest was obtained. FINDINGS: The cardiac, hilar, and mediastinal contours are normal. Severe COPD again demonstrated. There is a tiny left apical and lateral pneumothorax, measuring 1.3 cm left apical pleural separation maximally. Stable scarring in the right middle lobe distribution. Lungs otherwise grossly clear. No focal osseous or soft tissue abnormality. XR/XR chest 1V IMPRESSION: 1. Tiny left apical and lateral pneumothorax status post lung biopsy. 2. Severe COPD with stable scarring in the right middle lobe distribution. Electronically signed by: Daniel Wagner MD 02/20/2025 03:47 PM EDT
--- NOTE | ~2025-02-20 | CT_ITS ---
PROCEDURES: 1. Limited preprocedure CT of the chest. Permanent images saved in PACS. 2. CT-guided biopsy of left upper lobe lung nodule MEDICATIONS: -Fentanyl IV , and lidocaine 1%SQ -Antibiotics: None -For additional details, please see nursing flowsheet. COMPLICATIONS: None ESTIMATED BLOOD LOSS: < 5 ml CONTRAST: None SPECIMENS: 3 x 18 g cores were sent for pathology PROCEDURE NOTE: The procedure, risks, benefits, and alternatives were carefully explained to the patient and written informed consent was obtained. The patient was placed lateral decubitus on the CT table. A timeout was performed. A limited CT of the chest was performed to localize the upper lobe lung nodule and choose appropriate needle entry and trajectory. The patient was prepped and draped in usual sterile fashion. The skin and deeper soft tissues were anesthetized with lidocaine. Under CT guidance, a 17 gague trocar needle was advanced to the left upper lobe lung nodule. An 18-gauge Biopsy device was inserted through the trocar needle and advanced into the mass. A total of 3 cores were performed. The specimens were placed in formalin and sent to pathology. The needle was removed. A dry dressing was applied and secured with Tegaderm. A limited postprocedure CT of the chest was performed, which did not demonstrate any pneumothorax. There is small amount of perilesional hemorrhage which remains stable in size. There were no immediate complications. The patient was stable after the procedure and was transferred to the post anesthesia care unit. The procedure was done using IV sedation with a dedicated nurse for monitoring of vital signs. CT/CT biopsy lung LT Impression: CT-guided left upper lobe lung nodule biopsy Electronically signed by: Krzysztof Law MD 02/20/2025 02:17 PM EDT
--- NOTE | ~2025-02-20 | CT_ITS ---
PROCEDURE: CT-guided chest tube placement HISTORY: Left pneumothorax. MEDICATIONS: 10 mL 1% lidocaine TECHNIQUE/FINDINGS The procedure, risks, benefits, and alternatives had previously been explained to the patient and written informed consent was obtained prior to CT-guided lung biopsy performed earlier same day. The patient was placed supine on the CT table. A timeout was performed. A limited CT of the chest was performed demonstrating moderate left pneumothorax. A site was marked on the left upper anterior chest wall and the area was sterilely prepped and draped. The skin and subcutaneous tissues were anesthetized with lidocaine. A small dermatotomy was made. A 10 Kittitian pigtail drainage catheter was then placed using trocar technique. The pigtail was formed. The catheter was attached to Pleur-evac suction. Catheter was secured with a suture and a dressing was applied. Post placement CT demonstrates near complete resolution of the pneumothorax with reexpansion of the left lung. Chest tube is in pleural space. Previous left apical pulmonary nodule with minimal postbiopsy perilesional hemorrhage similar to prior. The patient was stable after the procedure and was transferred to the emergency department. CT/CT chest tube placement Impression: Moderate left pneumothorax Placement of 10 Kittitian left chest tube with near complete resolution of pneumothorax. Electronically signed by: Krzysztof Law MD 02/20/2025 04:16 PM EDT
[2025-02-20 11:57] LABS: MANUAL DIFF FLAG NO
[2025-02-20 12:09] LABS: Prothrombin Time 11.9 SEC (10.9-12.4)
[2025-02-20 12:10] LABS: Basophils Percent Auto 0.3 % (0-2); Eosinophils Absolute Auto 0.1 X10*3/uL (0.0-0.4); Eosinophils Percent Auto 1.7 % (0-4); Hematocrit 40.9 % (42.0-52.0); Hemoglobin 12.5 g/dl (14.0-18.0); Imm Gran Abs Auto 0.02 X10*3/uL (0.00-0.03); Imm Gran Pct Auto 0.3 % (0.0-0.4); Lymphocytes Absolute Auto 0.8 X10*3/uL (1.2-4.9); Lymphocytes Percent Auto 10.8 % (20-40); Mean Corpuscular HGB Conc 30.6 g/dl (31.0-36.0); Mean Corpuscular Hemoglobin 29.7 pg (27.0-33.0); Mean Corpuscular Volume 97.1 fL (80.0-98.0); Mean Platelet Volume 10.4 fL (9.4-12.4); Monocytes Absolute Auto 0.5 X10*3/uL (0.1-1.2); Monocytes Percent Auto 7.1 % (2-11); Neutrophils Absolute Auto 5.8 x10*3/uL (2.0-8.3); Neutrophils Percent Auto 79.8 % (45-73); Platelet Count 193 X10*3/uL (160-400); Red Blood Count 4.21 X10*6/uL (4.60-5.80); Red Cell Distribution Width 12.6 % (11.0-16.0); White Blood Count 7.2 X10*3/uL (4.8-10.8)
[2025-02-20 12:27] LABS: Anion Gap 9 (12-20); Blood Urea Nitrogen 18 mg/dL (9-16); Calcium 9.2 mg/dL (8.4-10.2); Chloride 99 mmol/L (96-108); Creatinine Clr Calc Pharmacy 104.8; Estimated Glomerular Filt Rate > 60; Glucose Random 93 mg/dL (60-115); Potassium 4.3 mmol/L (3.3-5.1); Sodium 144 mmol/L (135-145)
[2025-02-20] MEDS: fentaNYL citrate/PF 100 MCG/2 ML VIAL 25 MCG IVPUSH (13:40)
[2025-02-20] MEDS: Lidocaine HCl 1 % MPF 30 ML VIAL 10 ML SUBCUT (14:32)
[2025-02-20] MEDS: Albuterol/Iprat 2.5/0.5MG 3 ML AMPUL.NEB INHALE (15:14)
[2025-02-20 15:30] LABS: Carbon Dioxide 40 mmol/L (22-29)
--- NOTE | 2025-02-20 16:40 | PC.NURSE ---
This RN arrived to CT after notified that pt had returned from PACU with increased sob s/p lung biopsy. imaging revaled a L lung tension pneumothorax. On arrival this patient was found to be hypoxic on 15L NRB with o2 sat of 59% dusky, with significant tracheal tugging and appeared fatigued. Rapid response called. With L anterior CT in place o2 sats 98% on 15L NRB. Pt remained fatigued and with significant tracheal tugging, unable to answer simple questions. Pt moved to stretcher with improving color and decreased WOB.Pt transported to ED and report given to Evens Lamar RN
--- NOTE | 2025-02-20 17:17 | PC.NURSE ---
This RN escorted this patient from PACU to CT scan, and then from CT scan to ED where bedside report was given to charge nurse. Pt's then escorted from [facility] waiting room to patient's room in ED. states Dr Law updated her on the updated plan of care. To minimize chance of misplaced items, the pt's belongings will remain in PACU until a room is assigned and they will be placed in room by DINING CAR CONDUCTOR.
== END ==
PROVIDERS: Radiology Diagnostic Radiology; Student in an Organized Health Care Education/Training Program; PCP Internal Medicine Sports Medicine; Visit Provider Internal Medicine
DX: R91.8 Other nonspecific abnormal finding of lung field (principal); J44.9 Chronic obstructive pulmonary disease, unspecified; J93.9 Pneumothorax, unspecified; J96.91 Respiratory failure, unspecified with hypoxia; R00.0 Tachycardia, unspecified; E78.5 Hyperlipidemia, unspecified; Z79.51 Long term (current) use of inhaled steroids; Z79.82 Long term (current) use of aspirin; Z79.899 Other long term (current) drug therapy; Z87.891 Personal history of nicotine dependence; Z98.890 Other specified postprocedural states
CPT/HCPCS: 32408; 32551; 36415; 71045; 80048; 85025; 85610; 88305; C1729; J2003; J2250; J2310; J3010

== ENCOUNTER → 2025-02-20 15:10 | Outpatient (BNV) | payer MEDICARE, SELFPAY | PROVIDERS: PCP Internal Medicine Sports Medicine; Visit Provider Radiology Diagnostic Radiology | DX: R91.1 Solitary pulmonary nodule (principal) | CPT/HCPCS: 32408 ==

== ENCOUNTER 2025-02-20 16:23 | Inpatient (IN) | payer MEDICARE, SELFPAY ==
[2025-02-20] VITALS (7 sets, daily range): BP systolic 95–141; BP diastolic 48–70; PULSE 96–112; RESP 16–24; TEMP 36.4–37.2; O2SAT 85–99; BMI 17.6
--- NOTE | ~2025-02-20 | XR_ITS ---
CLINICAL HISTORY: ptx Chest Radiograph Comparison: CR - XR CHEST 1V - 02/23/25 08:41 EDT CR/GA/SR - XR CHEST 1V - 02/22/25 12:07 EDT CR/GA/SR - XR CHEST 2V - 02/22/25 08:23 EDT CR/GA/SR - XR CHEST 1V - 02/21/25 10:49 EDT CR/SR - XR CHEST 1V - 02/20/25 16:31 EDT CR/GA/SR - XR CHEST 1V - 02/20/25 15:[address]/SR - CT LUNG SCREENING - 01/21/25 09:52 EDT Findings: No cardiomegaly. Unchanged mediastinal contours allowing for patient rotation. Left-sided chest tube without residual pneumothorax. Increased reticulation/lucency. Right lower lung zone opacity may correspond to atelectasis/ scarring seen on the CT, unchanged. Faint opacity in the left lung, similar to the prior studies. No pleural effusion. Normal upper abdomen. No acute fracture. Impression: Left-sided chest tube without residual pneumothorax. Faint opacity in the left lung may indicate edema or infection. Chronic lung pathology. This document has been electronically signed by: Patrizia Pascal MD on 02/23/2025 13:29:53
--- NOTE | ~2025-02-20 | XR_ITS ---
CLINICAL HISTORY: s p chest tube pneumothorax Chest radiograph, 1 view Comparison: CR - XR CHEST 1V - 02/23/25 15:20 EDT Findings: The patient is rotated to the right. The cardiomediastinal silhouette is not enlarged. Pulmonary vascularity is similar. Similar left lung and right lung base opacities. Similar right mid and upper lung zone lucency. No pleural effusion. No pneumothorax. IMPRESSION: No evidence of recurrent left pneumothorax. This document has been electronically signed by: Hernan Nj DO on 02/24/2025 10:50:02
--- NOTE | ~2025-02-20 | XR_ITS ---
EXAMINATION: XR CHEST CLINICAL INFORMATION: PTX follow up COMPARISON: Prior day at 4:31 PM. Prior day at 3:18 PM. TECHNIQUE: Frontal view of the chest was obtained. FINDINGS: Left chest tube in place, pigtail formed in the left mid lateral pleural space. The cardiac, hilar, and mediastinal contours are normal. Aortic mural calcification. Mild right mediastinal shift is unchanged. Severe COPD again demonstrated. There is a tiny left apical pneumothorax measuring 2-3 mm. No lateral or basilar pneumothorax seen. Stable scarring in the right middle lobe distribution. Patchy opacity in the left apex consistent with scarring and post biopsy hemorrhage.1 No focal osseous or soft tissue abnormality. XR/XR chest 1V IMPRESSION: 1. Chest tube formed in the left mid lateral pleural space. 2. Severe emphysema of both lungs. There is a tiny 2-3 mm left apical pneumothorax. No lateral or basilar pneumothorax. 3. Patchy opacity in the left apex is consistent with postbiopsy changes. 4. There is chronic cicatrization type atelectasis of the right middle lobe. Electronically signed by: Daniel Wagner MD 02/21/2025 11:06 AM EDT
--- NOTE | ~2025-02-20 | XR_ITS ---
EXAMINATION: XR CHEST CLINICAL INFORMATION: Status post emergent chest tube for pneumothorax COMPARISON: CT chest 02/12/2025 TECHNIQUE: Frontal view of the chest was obtained. FINDINGS: Status post insertion of a left chest tube catheter with its tip along the left lateral mid chest wall there is significant resolution of left pneumothorax. A tiny left apical pneumothorax is visualized. There is diffuse emphysema with chronic interstitial lung disease most prominent in both lung bases and left upper lobe. Heart size and pulmonary vascularity is normal. No gross bony abnormality seen. XR/XR chest 1V IMPRESSION: Near complete resolution of left pneumothorax status post insertion of a left pleural catheter. A very small left apical pneumothorax is seen There are chronic bilateral interstitial lung changes which are unchanged to previous exam. Electronically signed by: Loki To MD 02/20/2025 04:51 PM EDT
--- NOTE | ~2025-02-20 | XR_ITS ---
EXAMINATION: XR CHEST CLINICAL INFORMATION: ptx, follow-up COMPARISON: Earlier same day at 8:23 AM. TECHNIQUE: Frontal view of the chest was obtained. FINDINGS: Left chest tube in place, pigtail formed in the left mid lateral pleural space. Tube is not kinked. The cardiac, hilar, and mediastinal contours are normal. Aortic mural calcification. Mild right mediastinal shift is unchanged. Severe COPD again demonstrated. Previously seen tiny pneumothorax has resolved. Trace, 2 mm left apical pneumothorax. Stable scarring in the right middle lobe distribution. Patchy opacity in the left apex consistent with scarring and post biopsy hemorrhage. No focal osseous or soft tissue abnormality. XR/XR chest 1V IMPRESSION: 1. Chest tube formed in the left mid lateral pleural space. 2. Severe emphysema of both lungs. Trace 2 mm left apical pneumothorax. 3. Patchy opacity in the left apex is consistent with postbiopsy changes. 4. There is chronic cicatrization type atelectasis of the right middle lobe. Electronically signed by: Daniel Wagner MD 02/22/2025 12:56 PM EDT
--- NOTE | ~2025-02-20 | XR_ITS ---
CLINICAL HISTORY: f u ptx 1 view chest x-ray Comparison: 02/22/2025 Findings: Portions of the exam are obscured by overlying material. Left chest tube remains in position with no pneumothorax identified. The exam is otherwise unchanged. IMPRESSION: 1. No pneumothorax with left chest tube remaining in positioning and otherwise no significant change from yesterday. This document has been electronically signed by: Jeyson Segundo MD on 02/23/2025 09:23:05
--- NOTE | ~2025-02-20 | XR_ITS ---
CLINICAL HISTORY: follow up PTX after chest tube pulled out Chest Radiographs, AP Comparison: CR - XR CHEST 1V - 02/23/25 12:32 EDT CR - XR CHEST 1V - 02/23/25 08:41 EDT CR/IL/SR - XR CHEST 1V - 02/22/25 12:07 EDT CR/IL/SR - XR CHEST 2V - 02/22/25 08:23 EDT CR/IL/SR - XR CHEST 1V - 02/21/25 10:49 EDT CR/SR - XR CHEST 1V - 02/20/25 16:31 EDT CR/IL/SR - XR CHEST 1V - 02/20/25 15:[address]/SR - CT LUNG SCREENING - 01/21/25 09:52 EDT Findings: No cardiomegaly. Normal mediastinal contours. Interval removal of the previously seen left-sided chest tube. No pneumothorax. Persistent right lower lung zone opacity, unchanged. Increased reticulation /lucency. Faint opacity throughout the left lung, unchanged. No pleural effusion. Normal upper abdomen. No acute fracture. Impression: Interval removal of the left-sided chest tube with recurrent/residual pneumothorax. This document has been electronically signed by: Patrizia Pascal MD on 02/23/2025 16:40:52
--- NOTE | ~2025-02-20 | XR_ITS ---
EXAMINATION: XR CHEST CLINICAL INFORMATION: follow up PTX COMPARISON: Prior day at 10:49 AM. TECHNIQUE: 2 views of the chest were obtained. FINDINGS: Left chest tube in place, pigtail formed in the left mid lateral pleural space. Tube is not kinked. The cardiac, hilar, and mediastinal contours are normal. Aortic mural calcification. Mild right mediastinal shift is unchanged. Severe COPD again demonstrated. Previously seen tiny pneumothorax has resolved. No pneumothorax evident. Stable scarring in the right middle lobe distribution. Patchy opacity in the left apex consistent with scarring and post biopsy hemorrhage. No focal osseous or soft tissue abnormality. XR/XR chest 2V IMPRESSION: 1. Chest tube formed in the left mid lateral pleural space. 2. Severe emphysema of both lungs. Left-sided pneumothorax is no longer visible 3. Patchy opacity in the left apex is consistent with postbiopsy changes. 4. There is chronic cicatrization type atelectasis of the right middle lobe. Electronically signed by: Daniel Wagner MD 02/22/2025 08:28 AM EDT
--- NOTE | 2025-02-20 16:24 | ECG_ITS ---
Test Reason : TACHYCARDIA Blood Pressure : */* mmHG Vent. Rate : 107 BPM Atrial Rate : 107 BPM P-R Int : 154 ms QRS Dur : 80 ms QT Int : 314 ms P-R-T Axes : 82 75 80 degrees QTcB Int : 419 ms Sinus tachycardia Septal infarct , age undetermined Abnormal ECG No previous ECGs available Referred By: Koko Davis Electronically Signed By: SADIQ HADDAD MD
--- NOTE | 2025-02-20 16:25 | ED.CHESTPAIN ---
HPI - Chest Pain General Chief Complaint: Dyspnea Stated Complaint: SOB Time Seen by Provider: 02/20/25 16:24 Source: RN notes reviewed History of Present Illness ED Provider: Koko Davis MD HPI narrative: This is a 69-year-old male with the diagnosis of lung cancer left side, COPD he is brought over from outpatient radiology setting in our hospital where he was receiving a lung biopsy as an outpatient. He was in the PACU recovering I was told he was given 25 mcg of fentanyl for the procedure and shortly after was found to be dusky and in distress. He was put on oxygen and immediately brought over for an emergent chest tube. I am told that interventional radiology placed this chest tube which is an anterior left 2nd intercostal percutaneous pigtail catheter and the patient improved. The nurse tells me that he is somewhat slow to respond but awake. He is tachycardic. Prior to her the chest tube he was dusky, hypoxic and very ill-appearing. He did not receive any thing else except for local lidocaine for the emergent chest tube procedure and was brought over here for admission to the hospital and further workup Related Data Home Medications ?Medication ?Instructions ?Recorded ?Confirmed glucosamine HCl 1,500 mg tablet 1,500 mg PO DAILY 04/15/21 02/20/25 multivitamin (Daily Multi-Vitamin 1 tab PO DAILY 11/18/21 02/20/25 tablet) aspirin 81 mg tablet,delayed 81 mg PO Q OTHER DAY 02/09/23 02/20/25 release ipratropium 0.5 mg-albuterol 3 mg 3 ml inhalation QID for wheezing 01/21/25 02/20/25 (2.5 mg base)/3 mL nebulization soln atorvastatin 80 mg tablet 80 mg PO DAILY 02/20/25 02/20/25 azithromycin 250 mg tablet 250 mg PO MOWEFR@0900 02/20/25 02/20/25 guaifenesin 600 mg tablet, 600 mg PO DAILY PRN COPD 02/20/25 02/20/25 extended release 12 hr (Mucinex) Previous Rx's ?Medication ?Instructions ?Recorded albuterol sulfate 90 mcg/actuation 2 puff inhalation Q4-6H PRN 03/20/24 aerosol inhaler shortness of breath or wheezing 90 days #3 ea Symbicort 160 mcg-4.5 2 puff inhalation BID 90 days 12/04/24 mcg/actuation HFA aerosol inhaler #30.6 grams (budesonide-formoterol) Allergies Allergy/AdvReac Type Severity Reaction Status Date / Time No Known Allergies Allergy Verified 02/20/25 16:37 [facility] Past Medical History Medical History Moderate to severe aortic stenosis Respiratory failure with hypoxia Tachycardia Dyspnea on minimal exertion BPH (benign prostatic hyperplasia) Hyperlipidemia Personal history of nicotine dependence Pulmonary nodules COPD (chronic obstructive pulmonary disease) Surgical History History of Mohs micrographic surgery for skin cancer History of cataract surgery History of right inguinal hernia repair Social History Social History Household Members: Spouse Housing: House Are you a primary child care coordinator to a significant other at home: No Do you presently have visiting nurse or other home services: No Patient Tobacco Use Status: Former Tobacco user Years Smoked: 50 Smoked in Last 30 Days: No Second Hand Smoke Exposure: No Use of substances other than those prescribed or required for medical reasons: No Currently Displaying Signs/Symptoms of Drug Intoxication Withdrawal: No Have you been hit, kicked, punched, or otherwise hurt by someone within the past year? If so, by whom?: No Do you feel safe in your current relationship?: Yes Is there a partner from a previous relationship who is making you feel unsafe now?: No Are you made to feel afraid or neglected: No Advance Directives: No Advance Directives Information Provided: Yes Do you have a plan to hurt others: No Plan Recently lost weight without trying: Yes How much weight loss: 2-13 pounds Eating poorly because of decreased appetite: No Nutrition screen score: 3 Nutrition Risks: No Nutritional Risk Poor oral hygiene: No service: No Physical Exam Vital Signs: Vital Signs: Last Vital Signs Temp 97.4 F 02/22/25 12:00 Pulse 108 H 02/22/25 12:00 Resp 20 02/22/25 12:00 BP 129/59 L 02/22/25 12:00 Pulse Ox 91 L 02/22/25 12:00 O2 Del Method Nasal Cannula 02/22/25 12:00 O2 Flow Rate 3.5 02/22/25 12:00 Oxygen Flow Rate 15 02/20/25 16:29 BMI result Body Mass Index 17.6 Const: Other: EXAM: Gen: Alert, thin, frail appearing but not cachectic. Slow to respond but making eye contact and speaking in full sentences. Head: Atraumatic Eyes: Anicteric, Normal conjunctiva. ENT: Moist mucosa, no pallor. ? Neck: Supple. Respiratory: Decreased air entry. Slightly tachypneic rate about 25. Biopsy dressing left periscapular region. Anterior pigtail catheter dressed clean dry and intact anteriorly. Thin chest wall. No wheezing slight audible crackles in the left side Cardiovascular: Regular rate and rhythm. No murmurs or rub. Well perfused periphery, warm extremities. No edema. ? Abdominal: No FOCAL TENDERNESS. Soft, no objective distension. No palpable masses or obvious organomegaly. ?No guarding, no rebound tenderness or other peritoneal findings. : No flank tenderness. Neuro: Alert. Gross movement of all extremities intact. ? Vital signs: See flowsheet Medications Administered Generic Name Dose Route Start Last Admin Trade Name Freq PRN Reason Stop Dose Admin Albuterol/Ipratropium 3 ml 02/20/25 20:00 02/22/25 07:52 Albuterol/Iprat 2.5/0.5mg 3 Ml Ampul.Neb INHALE 3 ml RQID KEYON Administration Atorvastatin Calcium 80 mg 02/21/25 09:00 02/22/25 08:33 Atorvastatin Calcium 80 Mg Tablet PO 80 mg DAILY KEYON Administration Azithromycin 250 mg 02/22/25 09:00 02/22/25 08:33 Azithromycin 250 Mg Tablet PO 250 mg MOWEFR@0900 KEYON Administration Fluticasone/Vilanterol 1 puff 02/21/25 08:00 02/22/25 07:52 Fluticasone/Vilanterol 200/25 Blst.W.Dev INHALE 1 puff RDAILY KEYON Administration Guaifenesin 600 mg 02/20/25 19:10 02/21/25 09:52 Guaifenesin La 600 Mg Tab.Er.12h PO 600 mg DAILY PRN Administration COPD Acetaminophen 1,000 mg in 100 mls @ 400 mls/hr 02/22/25 12:00 02/22/25 12:34 Ofirmev IV 400 mls/hr Q6H KEYON Administration Ketorolac Tromethamine 15 mg 02/21/25 09:03 02/22/25 08:34 Ketorolac Tromethamine 15 Mg/Ml Vial IVPUSH 15 mg Q6H PRN Administration pain, mod to sev Lidocaine 1 patch 02/21/25 09:15 02/22/25 08:34 Lidocaine 4 % Patch Adh..Patch TRANSDERMA 1 patch DAILY KEYON Administration Protocol Multivitamins/Vitamin C 1 tab 02/21/25 09:00 02/22/25 08:34 Multivitamin Tablet PO 1 tab DAILY KEYON Administration Sodium Chloride 3 ml 02/21/25 00:00 02/22/25 08:36 0.9 % Sodium Chloride Flush 3 Ml Syringe IVFLUSH 3 ml QSHIFT KEYON Administration Discontinued Medications Generic Name Dose Route Start Last Admin Trade Name Freq PRN Reason Stop Dose Admin Lactated Ringer's 1,000 mls @ 999 mls/hr 02/20/25 16:30 02/20/25 19:33 Lr IV 02/20/25 17:30 Infused .Q1H1M KEYON Infusion Morphine Sulfate 2 mg 02/20/25 17:13 02/21/25 06:03 Morphine Sulfate 2 Mg/Ml Cartridge IVPUSH 2 mg Q4H PRN Administration Pain, Severe (Pain Scale 7-10) Protocol Medical Decision Making Medical Decision Making [facility] Narrative: 69-year-old male status post emergent chest tube for presumed tension pneumothorax after lung biopsy. Arrived tachypneic on RN 10L, ill appearing but awake and speaking 2-3 word sent. Lungs with mild L crackles. CXR performed immediately with no significant PTX. Tube in place. Tachycardic. Starting IV fluid. Contacted ICU thought given we could de-escalate to 3L NC sat > 90% he was comfortable with floor. Consulted floor hospitalist who evaluated and was agreeable to admit. No ischemia on ECG. No effusion on CXR. Differential Diagnosis Differential Diagnoses: The differential diagnosis associated with the presentation includes Pneumothorax, expansion pulmonary edema, lung injury, hemothorax, pneumonia, Admission/Observation Consideration of admission/observation: Escalation of care including admission/observation considered Consult Healthcare Provider Management of the patient was discussed with: Hospitalist and House Painter (recruiter coordinator) Lab Data [facility] Lab Attestation statement: I reviewed the patient's lab results. 02/20/25 16:52 02/22/25 07:30 Labs: Lab Results 02/20/25 Range/Units 16:52 WBC 6.6 (4.8-10.8) X10*3/uL RBC 3.99 L (4.60-5.80) X10*6/uL Hgb 12.1 L (14.0-18.0) g/dl Hct 39.3 L (42.0-52.0) % MCV 98.5 H (80.0-98.0) fL MCH 30.3 (27.0-33.0) pg MCHC 30.8 L (31.0-36.0) g/dl RDW 12.6 (11.0-16.0) % Plt Count 193 (160-400) X10*3/uL MPV 10.3 (9.4-12.4) fL Immature Gran % (Auto) 0.3 (0.0-0.4) % Neut % (Auto) 76.2 H (45-73) % Lymph % (Auto) 13.2 L (20-40) % Major % (Auto) 7.3 (2-11) % Eos % (Auto) 2.7 (0-4) % Baso % (Auto) 0.3 (0-2) % Lymph # (Auto) 0.9 L (1.2-4.9) X10*3/uL Major # (Auto) 0.5 (0.1-1.2) X10*3/uL Eos # (Auto) 0.2 (0.0-0.4) X10*3/uL Baso # (Auto) 0.0 (0.0-0.2) X10*3/uL Abs Immat Gran (auto) 0.02 (0.00-0.03) X10*3/uL Absolute Neuts (auto) 5.0 (2.0-8.3) x10*3/uL Absolute Nucleated RBC 0.000 (0.0-0.012) X10*3/uL Nucleated RBC % (auto) 0.0 (0.0-0.2) /100WBC Sodium 146 H (135-145) mmol/L Potassium 4.4 (3.3-5.1) mmol/L Chloride 97 (96-108) mmol/L Carbon Dioxide 44 H* (22-29) mmol/L Anion Gap 9 L (12-20) BUN 18 H (9-16) mg/dL Creatinine 0.60 (0.5-1.4) mg/dL Estim Creat Clear Calc 86.5 Estimated GFR > 60 Random Glucose 172 H (60-115) mg/dL Calcium 8.9 (8.4-10.2) mg/dL Total Bilirubin 0.4 (0.0-1.0) mg/dL AST 24 (5-37) U/L ALT 19 (0-40) U/L Alkaline Phosphatase 79 (39-117) U/L Total Protein 6.9 (6.5-8.0) g/dL Albumin 4.4 (3.5-5.0) g/dL Independent Interpretation I performed an independent interpretation of an: EKG (Sinus tachycardia rate 107 QTC 419. No acute ischemic changes.) Critical Care Time Critical Care Time Critical Care Time: Yes Total Critical Care Time: 35 Attestation: Time is exclusive of separately billable procedures. Time includes: direct patient care, patient reassessment, coordination of patient care, interpretation of data (laboratory data, pulse oximetry, arterial blood gases and chest xrays), review of patient's medical records, medical consultation and documentation of patient care. Procedures excluded from critical care time: central intravenous line placement and electrocardiography. Discharge Plan Discharge Clinical Impression: Pneumothorax after biopsy Patient Disposition: Admitted As Inpatient Interventions: Admission Worksheet (ED) Last Done: 02/20/25 23:52 Discharge Date/Time: 02/21/25 00:25
[2025-02-20] MEDS: Lactated Ringers 1,000 ML 999 ML IV (16:43)
[2025-02-20 16:55] LABS: MANUAL DIFF FLAG NO
[2025-02-20 17:00] LABS: Basophils Percent Auto 0.3 % (0-2); Eosinophils Absolute Auto 0.2 X10*3/uL (0.0-0.4); Eosinophils Percent Auto 2.7 % (0-4); Hematocrit 39.3 % (42.0-52.0); Hemoglobin 12.1 g/dl (14.0-18.0); Imm Gran Abs Auto 0.02 X10*3/uL (0.00-0.03); Imm Gran Pct Auto 0.3 % (0.0-0.4); Lymphocytes Absolute Auto 0.9 X10*3/uL (1.2-4.9); Lymphocytes Percent Auto 13.2 % (20-40); Mean Corpuscular HGB Conc 30.8 g/dl (31.0-36.0); Mean Corpuscular Hemoglobin 30.3 pg (27.0-33.0); Mean Corpuscular Volume 98.5 fL (80.0-98.0); Mean Platelet Volume 10.3 fL (9.4-12.4); Monocytes Absolute Auto 0.5 X10*3/uL (0.1-1.2); Monocytes Percent Auto 7.3 % (2-11); Neutrophils Percent Auto 76.2 % (45-73); Platelet Count 193 X10*3/uL (160-400); Red Blood Count 3.99 X10*6/uL (4.60-5.80); Red Cell Distribution Width 12.6 % (11.0-16.0); White Blood Count 6.6 X10*3/uL (4.8-10.8)
[2025-02-20 17:13] LABS: Alanine Aminotransferase 19 U/L (0-40); Albumin Level 4.4 g/dL (3.5-5.0); Alkaline Phosphatase 79 U/L (39-117); Anion Gap 9 (12-20); Aspartate Amino Transferase 24 U/L (5-37); Bilirubin Total 0.4 mg/dL (0.0-1.0); Blood Urea Nitrogen 18 mg/dL (9-16); Calcium 8.9 mg/dL (8.4-10.2); Carbon Dioxide 44 mmol/L (22-29); Chloride 97 mmol/L (96-108); Creatinine Clr Calc Pharmacy 86.5; Estimated Glomerular Filt Rate > 60; Glucose Random 172 mg/dL (60-115); Potassium 4.4 mmol/L (3.3-5.1); Sodium 146 mmol/L (135-145); Total Protein 6.9 g/dL (6.5-8.0)
[2025-02-20] MEDS: Morphine Sulfate 2 MG/ML CARTRIDGE IVPUSH (17:45)
--- NOTE | 2025-02-20 17:54 | PC.NURSE ---
While giving Morphine 2mg PRN for 7/10 chest pain, pt noted with saturation down to 85%, pt put on 4lpm via nc to assist. No changed to chest tube assessment and skin color remained pink. Dr So updated. Pt now up to 96% on 4lpm and will be titrated back down to baseline 3lpm via nc.
--- NOTE | 2025-02-20 18:00 | PC.NURSE ---
Inquired about chest tube care orders with Dr So, awaiting at this time. Okay for low wall suction at this time per Judah
--- NOTE | 2025-02-20 18:15 | PM.IMHP ---
History of Present Illness Date of Service: 02/20/25 Chief Complaint: pneumothorax 69yo M with advanced COPD on 3L of O2 at home, followed by Dr Abdoulaye Santacruz at [facility] Pulmonology and in the [facility] lung cancer screening program. He had a screening CT on 01/21/25 that showed a suspicious nodule in the left upper lobe. This was FDG-avid on PET scan 02/18/25. He underwent CT-guided biopsy today by IR. He suddenly became short of breath and cyanotic with SaO2 as low as 50%. A CT showed a moderate L-sided pneumothorax and he underwent emergent placement of a pigtail drainage catheter with near-complete resolution of the pneumothorax, re-expansion of the left lung, and resolution of his respiratory distress and cyanosis. He was sent to the ED and referred to the hospitalist team for admission. Currently he feels well, though he is shaken up and doesn't really remember the events surrounding his hypoxic event. He has only minor discomfort at the tube insertion site. He has chronic cough but has been a little worse lately. No fever, chills, or sputum production. No hemoptysis. No weight loss. Review of Systems Review of Systems: Yes all other systems are reviewed and are negative COUNT INCLUDES THE [facility] Medical History Moderate to severe aortic stenosis Respiratory failure with hypoxia Tachycardia Dyspnea on minimal exertion BPH (benign prostatic hyperplasia) Hyperlipidemia Personal history of nicotine dependence Pulmonary nodules COPD (chronic obstructive pulmonary disease) Surgical History History of Mohs micrographic surgery for skin cancer History of cataract surgery History of right inguinal hernia repair Social History Household Members: Spouse Housing: House Are you a primary critical care registered nurse to a significant other at home: No Do you presently have visiting nurse or other home services: No Patient Tobacco Use Status: Former Tobacco user Years Smoked: 50 Smoked in Last 30 Days: No Second Hand Smoke Exposure: No Use of substances other than those prescribed or required for medical reasons: No Currently Displaying Signs/Symptoms of Drug Intoxication Withdrawal: No Have you been hit, kicked, punched, or otherwise hurt by someone within the past year? If so, by whom?: No Do you feel safe in your current relationship?: Yes Is there a partner from a previous relationship who is making you feel unsafe now?: No Are you made to feel afraid or neglected: No Advance Directives: No Advance Directives Information Provided: Yes Do you have a plan to hurt others: No Plan Recently lost weight without trying: Yes How much weight loss: 2-13 pounds Eating poorly because of decreased appetite: No Nutrition screen score: 3 Nutrition Risks: No Nutritional Risk Poor oral hygiene: No Meds Allergies Allergy/AdvReac Type Severity Reaction Status Date / Time No Known Allergies Allergy Verified 02/20/25 16:37 Active Medications: Current Medications Acetaminophen (Acetaminophen 325 Mg Tablet) 650 mg PO Q6H PRN PRN Reason: Pain, Mild 1-3,fever,headache Albuterol/Ipratropium (Albuterol/Iprat 2.5/0.5mg 3 Ml Ampul.Neb) 3 ml INHALE RQ4H WHILE AWAKE PRN PRN Reason: shortness of breath/wheezing Calcium Carbonate (Calcium Carbonate 750 Mg Tab.Chew) 750 mg PO Q4H PRN PRN Reason: Heartburn Magnesium Hydroxide (Milk Of Magnesia 30 Ml Oral.Susp) 30 ml PO DAILY PRN PRN Reason: Constipation Melatonin (Melatonin 3 Mg Tablet) 6 mg PO BEDTIME PRN PRN Reason: Insomnia Morphine Sulfate (Morphine Sulfate 2 Mg/Ml Cartridge) 2 mg IVPUSH Q4H PRN; Protocol PRN Reason: Pain, Severe (Pain Scale 7-10) Last Admin: 02/20/25 17:45 Dose: 2 mg Ondansetron HCl (Ondansetron Hcl 4 Mg/2 Ml Vial) 4 mg IVPUSH Q8H PRN PRN Reason: Nausea and Vomiting Oxycodone HCl (Oxycodone Hcl Immed Release 5 Mg Tablet) 5 mg PO Q4H PRN PRN Reason: Pain, Moderate(Pain Scale 4-6) Sodium Chloride (0.9 % Sodium Chloride Flush 3 Ml Syringe) 3 [facility] Medications ?Medication ?Instructions ?Recorded ?Confirmed ?Last Taken ?Type glucosamine HCl 1,500 mg tablet 1,500 mg PO DAILY 04/15/21 02/20/25 02/19/25 History multivitamin (Daily Multi-Vitamin 1 tab PO DAILY 11/18/21 02/20/25 02/19/25 History tablet) aspirin 81 mg tablet,delayed 81 mg PO Q OTHER DAY 02/09/23 02/20/25 02/18/25 History release ipratropium 0.5 mg-albuterol 3 mg 3 ml inhalation QID for wheezing 01/21/25 02/20/25 02/19/25 History (2.5 mg base)/3 mL nebulization soln atorvastatin 80 mg tablet 80 mg PO DAILY 02/20/25 02/20/25 02/19/25 History azithromycin 250 mg tablet 250 mg PO MOWEFR@0900 02/20/25 02/20/25 02/15/25 History guaifenesin 600 mg tablet, 600 mg PO DAILY PRN COPD 02/20/25 02/20/25 Unknown History extended release 12 hr (Mucinex) Physical Exam Vital Signs and Narrative: Vital Signs: Last Vital Signs Temp 97.6 F 02/20/25 16:29 Pulse 103 H 02/20/25 17:50 Resp 18 02/20/25 17:50 BP 122/66 02/20/25 17:50 Pulse Ox 85 L 02/20/25 17:50 O2 Del Method Nasal Cannula 02/20/25 17:50 O2 Flow Rate 3 02/20/25 17:50 Oxygen Flow Rate 15 02/20/25 16:29 BMI result Body Mass Index 17.6 Gen: in no acute distress HEENT: sclera anicteric, moist mucus membranes Neck: supple Lungs: clear to auscultation bilaterally, L chest tube to suction Heart: tachycardic, no murmurs Abd: soft, non-tender, non-distended Ext: no edema Skin: warm/well-perfused Neuro: alert and oriented x3, no focal findings Psych: appropriate affect Results Labs 02/20/25 16:52 02/20/25 16:52 Labs: Laboratory Results - last 24 hr 02/20/25 16:52 MCV 98.5 H MCH 30.3 MCHC 30.8 L RDW 12.6 Plt Count 193 MPV 10.3 Immature Gran % (Auto) 0.3 Neut % (Auto) 76.2 H Lymph % (Auto) 13.2 L [place] % (Auto) 7.3 Eos % (Auto) 2.7 Baso % (Auto) 0.3 Lymph # (Auto) 0.9 L [place] # (Auto) 0.5 Eos # (Auto) 0.2 Baso # (Auto) 0.0 Abs Immat Gran (auto) 0.02 Absolute Neuts (auto) 5.0 Absolute Nucleated RBC 0.000 Nucleated RBC % (auto) 0.0 Anion Gap 9 L Estim Creat Clear Calc 86.5 Estimated GFR > 60 Random Glucose 172 H Calcium 8.9 Total Bilirubin 0.4 AST 24 ALT 19 Alkaline Phosphatase 79 Total Protein 6.9 Albumin 4.4 Imaging Radiologist's Impressions: Impressions Chest X-Ray 02/20/25 16:24 IMPRESSION: Near complete resolution of left pneumothorax status post insertion of a left pleural catheter. A very small left apical pneumothorax is seen There are chronic bilateral interstitial lung changes which are unchanged to previous exam. Electronically signed by: Loki To MD 02/20/2025 04:51 PM EDT RP Assessment and Plan (1) Pneumothorax after biopsy: Status: Acute Plan 69yo M with advanced COPD on 3L of O2 at home, recently diagnosed with FDG-avid L apical lung nodule and underwent CT-guided biopsy today complicated by pneumothorax, now with pigtail drainage catheter in place post-procedure pneumothorax - admit to telemetry, chest tube to suction, Pulm consult, CXR in AM, pain control with oxycodone/morphine chronic hypoxic + hypercarbic resp failure - appears to retain CO2, goal SaO2 88-92%, check VBG in AM COPD - azithromycin, Breo to sub for Symbicort, albuterol nebs + inhaler prn HLD - atorvastatin VTE ppx - SCDs dispo - eventual home code status - full I anticipate that the patient will stay at least 2 midnights as an inpatient in the hospital due to the above reasons. It is neither reasonable nor safe to care for them in a less acute setting. Quality Stroke Does the patient have a stroke diagnosis?: No VTE Prior VTE?: No VTE Risk Level:: Medical - moderate - high VTE Device Contraindication: N/A - Device Ordered VTE Drug Contraindication: Treatment Not Tolerated
--- NOTE | 2025-02-20 18:37 | PHA.MEDREC ---
Addendum entered by Keesha Romero RP 02/20/25 19:09: Reviewed by [facility] Original Note: Pharmacy Consult ? Medication Reconciliation Pharmacy has completed the medication reconciliation. Spoke with pt and pt at bedside, who were able to confirm pt medications. Pt confirmed the pt was taking Azithromycin 250mg tab MO WE FR but stated the pt took his last tablet Thursday 02/15 and they wern't sure if they were gonna be continuing it; the states the pt has a dr apt next month to talk about still needing that medication.
[2025-02-20] MEDS: Albuterol/Iprat 2.5/0.5MG 3 ML AMPUL.NEB INHALE (19:35)
--- NOTE | 2025-02-20 23:33 | PC.NURSE ---
Since arrival the patient's chest tube suction setting has been at -20. RN assessing orders and noted the pt's chest tube management order read for the suction setting to be at -10. This RN attempted to adjust the suction setting to match the order however when the suction is decreased to -10 the bellow no longer extends outwards to meet the triangle and the ball/water noted in the cmH2O chamber is noted to rise. RN outreached the hospitalist to inquire as to what should be done (remain at -20 or decrease to -10) and was advised to follow up with ICU, per MANAGER MONEY outreached Md Landry from pulmonology who advised that we leave the suction setting at -20 overnight and he will reassess and address in the morning.
[2025-02-21] VITALS (11 sets, daily range): BP systolic 108–137; BP diastolic 55–72; PULSE 100–110; RESP 16–30; TEMP 36.6–37.3; O2SAT 89–100; BMI 18.2
[2025-02-21] MEDS: 0.9 % Sodium Chloride Flush 3 ML SYRINGE IVFLUSH ×3 (00:41→12:20)
[2025-02-21] MEDS: Morphine Sulfate 2 MG/ML CARTRIDGE IVPUSH ×2 (00:41→06:03)
[2025-02-21 05:39] LABS: Venous Blood Gas Refer to POC result
[2025-02-21 05:43] LABS: VBG Base Excess 17.3 mmol/L; VBG HCO3 48 mmol/L (22-26); VBG pCO2 97 mmHg; VBG pO2 49 mmHg
[2025-02-21] MEDS: Albuterol/Iprat 2.5/0.5MG 3 ML AMPUL.NEB INHALE ×4 (07:38→19:17)
[2025-02-21] MEDS: Atorvastatin Calcium 80 MG TABLET PO (08:35)
[2025-02-21] MEDS: Multivitamin TABLET 1 TAB PO (08:35)
[2025-02-21] MEDS: Lidocaine 4 % Patch ADH..PATCH 1 PATCH TRANSDERMA (09:45)
[2025-02-21] MEDS: guaiFENesin LA 600 MG TAB.ER.12H PO (09:52)
--- NOTE | 2025-02-21 10:13 | PM.CNPUL ---
History of Present Illness History of Present Illness Consult date: 02/21/25 Chief complaint: Pneumothorax Narrative: This is an inpatient pulmonary consultation. The patient is a 69yo M with advanced COPD on 3L of O2 at home, [place] Abdoulaye Santacruz [place] [facility] [place] [facility] [place]. He had a screening CT on 01/21/25 that showed a suspicious nodule in the left upper lobe. This was FDG-avid on PET scan 02/18/25. He underwent CT-guided biopsy today by IR. He suddenly became short of breath and cyanotic with SaO2 as low as 50%. A CT showed a moderate L-sided pneumothorax and he underwent emergent placement of a pigtail drainage catheter with near-complete resolution of the pneumothorax, re-expansion of the left lung, and resolution of his respiratory distress and cyanosis. He was sent to the ED and referred to the hospitalist team for admission. Currently on the medical-surgical floor. He placed his pulse oximeter on is pulse ox was 85% on 3-1/2 L and heart rate is 110. Therefore increase his oxygen to 4 L improving his pulse ox to 90%. The patient should go to tele floor. As far as the chest tube it is set up to suction right now. We did climb to suction and I did not see any significant respiratory variations. I did not see any air bubbles. Therefore he will need a chest x-ray to make sure about placement. No crepitus appreciated. Also to note his blood gas done this morning a fibroglandular the morning demonstrated evidence of acute on chronic hypercarbic respiratory failure. Concerned about positive airway pressure because of his significant condition. He has been taking a low dose amount of opiate which may have contributed some in addition to that the fact that it was early in the morning. He seems to be more awake now. Will go ahead and repeat the blood gas at this time. Review of Systems Constitutional: Constitutional: Denies fever(s) Eyes: Eyes: Reports no additional eye complaints ENT: Reports system reviewed and no additional complaints, except as documented Cardiovascular: Cardiovascular: Reports palpitations and Reports dyspnea Respiratory: Respiratory: Reports dyspnea and Reports wheezing Gastrointestinal: Gastrointestinal: Reports no additional gastrointestinal complaints Musculoskeletal: Musculoskeletal: Reports no additional musculoskeletal complaints Neurologic: Reports system reviewed and no additional complaints, except as documented Endocrine: Endocrine: Reports palpitations Hematologic/Lymphatic: Hematologic/Lymphatic: Reports no additional hematologic/lymphatic complaints Allergic/Immunologic: Allergic/Immunologic: Reports wheezing PMFSH Past Medical History Medical History Moderate to severe aortic stenosis Respiratory failure with hypoxia Tachycardia Dyspnea on minimal exertion BPH (benign prostatic hyperplasia) Hyperlipidemia Personal history of nicotine dependence Pulmonary nodules COPD (chronic obstructive pulmonary disease) Surgical History Surgical History History of Mohs micrographic surgery for skin cancer History of cataract surgery History of right inguinal hernia repair Social History Social History Household Members: Spouse Housing: House Are you a primary neonatal intensive care unit nurse to a significant other at home: No Do you presently have visiting nurse or other home services: No Patient Tobacco Use Status: Former Tobacco user Years Smoked: 50 Smoked in Last 30 Days: No Second Hand Smoke Exposure: No Use of substances other than those prescribed or required for medical reasons: No Currently Displaying Signs/Symptoms of Drug Intoxication Withdrawal: No Have you been hit, kicked, punched, or otherwise hurt by someone within the past year? If so, by whom?: No Do you feel safe in your current relationship?: Yes Is there a partner from a previous relationship who is making you feel unsafe now?: No Are you made to feel afraid or neglected: No Advance Directives: No Advance Directives Information Provided: Yes Do you have a plan to hurt others: No Plan Recently lost weight without trying: Yes How much weight loss: 2-13 pounds Eating poorly because of decreased appetite: No Nutrition screen score: 3 Nutrition Risks: No Nutritional Risk Poor oral hygiene: No Meds Allergies Allergy/AdvReac Type Severity Reaction Status Date / Time No Known Allergies Allergy Verified 02/20/25 16:37 Active Medications: Current Medications Acetaminophen (Acetaminophen 325 Mg Tablet) 650 mg PO Q6H PRN PRN Reason: Pain, Mild 1-3,fever,headache Albuterol Sulfate (Albuterol Sulfate 90 Mcg 8 Gm Inhaler) 2 puff INHALE Q4H PRN PRN Reason: shortness of breath or wheezing Albuterol/Ipratropium (Albuterol/Iprat 2.5/0.5mg 3 Ml Ampul.Neb) 3 ml INHALE RQID [facility] Last Admin: 02/21/25 07:38 Dose: 3 ml Atorvastatin Calcium (Atorvastatin Calcium 80 Mg Tablet) 80 mg PO DAILY [facility] Last Admin: 02/21/25 08:35 Dose: 80 mg Azithromycin (Azithromycin 250 Mg Tablet) 250 mg PO MOWEFR@0900 [facility] Calcium Carbonate (Calcium Carbonate 750 Mg Tab.Chew) 750 mg PO Q4H PRN PRN Reason: Heartburn Fluticasone/Vilanterol (Fluticasone/Vilanterol 200/25 Blst.W.Dev) 1 puff INHALE RDAILY [facility] Guaifenesin (Guaifenesin La 600 Mg Tab.Er.12h) 600 mg PO DAILY PRN PRN Reason: COPD Last Admin: 02/21/25 09:52 Dose: 600 mg Ketorolac Tromethamine (Ketorolac Tromethamine 15 Mg/Ml Vial) 15 mg IVPUSH Q6H PRN PRN Reason: pain, mod to sev Lidocaine (Lidocaine 4 % Patch Adh..Patch) 1 patch TRANSDERMA DAILY [facility]; Protocol Last Admin: 02/21/25 09:45 Dose: 1 patch Magnesium Hydroxide (Milk Of Magnesia 30 Ml Oral.Susp) 30 ml PO DAILY PRN PRN Reason: Constipation Melatonin (Melatonin 3 Mg Tablet) 6 mg PO BEDTIME PRN PRN Reason: Insomnia Multivitamins/Vitamin C (Multivitamin Tablet) 1 tab PO DAILY [facility] Last Admin: 02/21/25 08:35 Dose: 1 tab Ondansetron HCl (Ondansetron Hcl 4 Mg/2 Ml Vial) 4 mg IVPUSH Q8H PRN PRN Reason: Nausea and Vomiting Sodium Chloride (0.9 % Sodium Chloride Flush 3 Ml Syringe) 3 ml IVFLUSH QSHIFT [facility] Last Admin: 02/21/25 08:36 Dose: 3 ml Home Medications ?Medication ?Instructions ?Recorded ?Confirmed ?Last Taken ?Type glucosamine HCl 1,500 mg tablet 1,500 mg PO DAILY 04/15/21 02/20/25 02/19/25 History multivitamin (Daily Multi-Vitamin 1 tab PO DAILY 11/18/21 02/20/25 02/19/25 History tablet) aspirin 81 mg tablet,delayed 81 mg PO Q OTHER DAY 02/09/23 02/20/25 02/18/25 History release ipratropium 0.5 mg-albuterol 3 mg 3 ml inhalation QID for wheezing 01/21/25 02/20/25 02/19/25 History (2.5 mg base)/3 mL nebulization soln atorvastatin 80 mg tablet 80 mg PO DAILY 02/20/25 02/20/25 02/19/25 History azithromycin 250 mg tablet 250 mg PO MOWEFR@0900 02/20/25 02/20/25 02/15/25 History guaifenesin 600 mg tablet, 600 mg PO DAILY PRN COPD 02/20/25 02/20/25 Unknown History extended release 12 hr (Mucinex) Physical Exam Vital Signs: Vital Signs: Last Vital Signs Temp 98.0 F 02/21/25 07:18 Pulse 104 H 02/21/25 07:41 Resp 20 02/21/25 07:41 BP 137/72 02/21/25 07:18 Pulse Ox 91 L 02/21/25 07:18 O2 Del Method Nasal Cannula 02/21/25 07:18 O2 Flow Rate 3 02/21/25 07:18 Oxygen Flow Rate 15 02/20/25 16:29 BMI result Body Mass Index 18.2 Const: General: tired appearing HEENT: Head: Yes normocephalic Neck: Neck: Yes supple and Yes other (no crepitus) Chest: Chest palpation & inspection: normal inspection of the chest and other (hyperinflated, chest tube in place) Resp: Effort & Inspection: tachypneic Auscultation: diminished lung sounds GI: Palpation (GI): Soft to palpation Skin: General skin exam: no rashes or lesions noted Extrem: General: No cyanosis Results Laboratory Findings 02/20/25 16:52 02/20/25 16:52 Abnormal lab findings: Abnormal Labs 02/20/25 02/21/25 16:52 05:38 RBC 3.99 L Hgb 12.1 L Hct 39.3 L MCV 98.5 H MCHC 30.8 L Neut % (Auto) 76.2 H Lymph % (Auto) 13.2 L Lymph # (Auto) 0.9 L VBG pH 7.30 L VBG HCO3 48 H Sodium 146 H Carbon Dioxide 44 H* Anion Gap 9 L BUN 18 H Random Glucose 172 H Assessment and Plan (1) Pneumothorax after biopsy: Status: Acute (2) Acute on chronic respiratory failure with hypoxia and hypercapnia: Status: Acute (3) COPD (chronic obstructive pulmonary disease): Status: Acute (4) Pulmonary nodules: Status: Acute Plan Transfer to tele for close monitoring CXR repeating bloodgas, if worsens hypercapnea may need to use NIV conitnue oxygen to keep pox 88-95 avoid opiods and benzos keep chest tube to suction for now respiratory therapy fair condition Procedures Date of Service Date of Service: 02/21/25
[2025-02-21 10:31] LABS: Venous Blood Gas Refer to POC result
[2025-02-21 10:34] LABS: VBG Base Excess 21.6 mmol/L; VBG HCO3 52 mmol/L (22-26); VBG pCO2 91 mmHg; VBG pH 7.36 (7.32-7.43); VBG pO2 67 mmHg
[2025-02-21 10:48] LABS: ABG Base Excess 19.8 mmol/L; ABG HCO3 50 mmol/L (22-26); ABG pCO2 91 mmHg (32-45); ABG pH 7.34 (7.35-7.45); ABG pO2 64 mmHg (83-108)
[2025-02-21 11:43] LABS: ABG Refer to POC result
[2025-02-21] MEDS: Ketorolac Tromethamine 15 MG/ML VIAL IVPUSH (12:20)
--- NOTE | 2025-02-21 13:17 | P.PNIM_ITS ---
Subjective Subjective Date of Service: 02/21/25 Interval History: pain at chest tube controlled no wheezing a little short of breath Review of Systems Review of Systems: Yes all other systems are reviewed and are negative Physical Exam 2 Vital Signs: Vital Signs: Last Vital Signs Temp 98.7 F 02/21/25 12:00 Pulse 110 H 02/21/25 12:00 Resp 20 02/21/25 12:00 BP 129/69 02/21/25 12:00 Pulse Ox 90 L 02/21/25 12:00 O2 Del Method Nasal Cannula 02/21/25 12:00 O2 Flow Rate 3 02/21/25 12:00 Oxygen Flow Rate 15 02/20/25 16:29 BMI result Body Mass Index 18.2 Gen: in no acute distress HEENT: sclera anicteric, moist mucus membranes Neck: supple Lungs: clear to auscultation bilaterally, L chest tube to suction Heart: regular rate and rhythm, no murmurs Abd: soft, non-tender, non-distended Ext: no edema Skin: warm/well-perfused Neuro: alert and oriented x3, no focal findings Psych: appropriate affect Objective Data Active Medications Acetaminophen (Acetaminophen 325 Mg Tablet) 650 mg PO Q6H PRN PRN Reason: Pain, Mild 1-3,fever,headache Albuterol Sulfate (Albuterol Sulfate 90 Mcg 8 Gm Inhaler) 2 puff INHALE Q4H PRN PRN Reason: shortness of breath or wheezing Albuterol/Ipratropium (Albuterol/Iprat 2.5/0.5mg 3 Ml Ampul.Neb) 3 ml INHALE RQID [facility] Last Admin: 02/21/25 12:12 Dose: 3 ml Documented By: DONNA Atorvastatin Calcium (Atorvastatin Calcium 80 Mg Tablet) 80 mg PO DAILY [facility] Last Admin: 02/21/25 08:35 Dose: 80 mg Documented By: JIHAN Azithromycin (Azithromycin 250 Mg Tablet) 250 mg PO MOWEFR@0900 [facility] Calcium Carbonate (Calcium Carbonate 750 Mg Tab.Chew) 750 mg PO Q4H PRN PRN Reason: Heartburn Fluticasone/Vilanterol (Fluticasone/Vilanterol 200/25 Blst.W.Dev) 1 puff INHALE RDAILY [facility] Guaifenesin (Guaifenesin La 600 Mg Tab.Er.12h) 600 mg PO DAILY PRN PRN Reason: COPD Last Admin: 02/21/25 09:52 Dose: 600 mg Documented By: JIHAN Ketorolac Tromethamine (Ketorolac Tromethamine 15 Mg/Ml Vial) 15 mg IVPUSH Q6H PRN PRN Reason: pain, mod to sev Last Admin: 02/21/25 12:20 Dose: 15 mg Documented By: ORVILLE Lidocaine (Lidocaine 4 % Patch Adh..Patch) 1 patch TRANSDERMA DAILY [facility]; Protocol Last Admin: 02/21/25 09:45 Dose: 1 patch Documented By: JIHAN Magnesium Hydroxide (Milk Of Magnesia 30 Ml Oral.Susp) 30 ml PO DAILY PRN PRN Reason: Constipation Melatonin (Melatonin 3 Mg Tablet) 6 mg PO BEDTIME PRN PRN Reason: Insomnia Multivitamins/Vitamin C (Multivitamin Tablet) 1 tab PO DAILY [facility] Last Admin: 02/21/25 08:35 Dose: 1 tab Documented By: JIHAN Ondansetron HCl (Ondansetron Hcl 4 Mg/2 Ml Vial) 4 mg IVPUSH Q8H PRN PRN Reason: Nausea and Vomiting Sodium Chloride (0.9 % Sodium Chloride Flush 3 Ml Syringe) 3 ml IVFLUSH QSHIFT [facility] Last Admin: 02/21/25 12:20 Dose: 3 ml Documented By: ORV[place]LE Labs 02/20/25 16:52 02/20/25 16:52 Labs: Laboratory Results - last 24 hr 02/20/25 02/21/25 02/21/25 16:52 05:38 10:30 MCV 98.5 H MCH 30.3 MCHC 30.8 L RDW 12.6 Plt Count 193 MPV 10.3 Immature Gran % (Auto) 0.3 Neut % (Auto) 76.2 H Lymph % (Auto) 13.2 L Boyle % (Auto) 7.3 Eos % (Auto) 2.7 Baso % (Auto) 0.3 Lymph # (Auto) 0.9 L Boyle # (Auto) 0.5 Eos # (Auto) 0.2 Baso # (Auto) 0.0 Abs Immat Gran (auto) 0.02 Absolute Neuts (auto) 5.0 Absolute Nucleated RBC 0.000 Nucleated RBC % (auto) 0.0 O2 Saturation ABG pH at Pt Temp ABG pCO2 at Pt Temp ABG pO2 at Pt Temp ABG HCO3 ABG Base Excess (Actual) VBG pH 7.30 L 7.36 VBG pCO2 97 91 VBG pO2 49 67 VBG HCO3 48 H 52 H VBG O2 Saturation 68.0 89.0 VBG Base Excess 17.3 21.6 Anion Gap 9 L Estim Creat Clear Calc 86.5 Estimated GFR > 60 Random Glucose 172 H Calcium 8.9 Total Bilirubin 0.4 AST 24 ALT 19 Alkaline Phosphatase 79 Total Protein 6.9 Albumin 4.4 02/21/25 10:44 MCV MCH MCHC RDW Plt Count MPV Immature Gran % (Auto) Neut % (Auto) Lymph % (Auto) Boyle % (Auto) Eos % (Auto) Baso % (Auto) Lymph # (Auto) Boyle # (Auto) Eos # (Auto) Baso # (Auto) Abs Immat Gran (auto) Absolute Neuts (auto) Absolute Nucleated RBC Nucleated RBC % (auto) O2 Saturation 87.0 ABG pH at Pt Temp 7.34 L ABG pCO2 at Pt Temp 91 H* ABG pO2 at Pt Temp 64 L ABG HCO3 50 H ABG Base Excess (Actual) 19.8 VBG pH VBG pCO2 VBG pO2 VBG HCO3 VBG O2 Saturation VBG Base Excess Anion Gap Estim Creat Clear Calc Estimated GFR Random Glucose Calcium Total Bilirubin AST ALT Alkaline Phosphatase Total Protein Albumin Assessment and Plan (1) Pneumothorax after biopsy: Status: Acute (2) Acute on chronic respiratory failure with hypoxia and hypercapnia: Status: Acute Plan 69yo M with advanced COPD on 3L of O2 at home, recently diagnosed with FDG-avid L apical lung nodule and underwent CT-guided biopsy today complicated by pneumothorax, now with pigtail drainage catheter in place post-procedure pneumothorax - continue chest tube to suction, Pulm consulted, may place to waterseal in AM then repeat CXR, pain control with APAP + ketorolac acute/chronic hypoxic + hypercarbic resp failure - appears to retain CO2, goal SaO2 88-92% - if pCO2 worsens can place on BiPAP 10/5 - avoid opioids COPD not in acute exacerbation - azithromycin, Breo to substitue for Symbicort, albuterol nebs + inhaler prn lung nodule - follow up with Pulm as outpt for biopsy results HLD - atorvastatin VTE ppx - SCDs dispo - eventual home In my clinical judgment, the patient requires continued inpatient hospitalization for the following reasons: chest tube Total time managing care of this patient today: 50 minutes. Quality Stroke Does the patient have a stroke diagnosis?: No VTE Prior VTE?: No VTE Risk Level:: Medical - moderate - high VTE Device Contraindication: N/A - Device Ordered VTE Drug Contraindication: Treatment Not Tolerated
--- NOTE | 2025-02-21 13:53 | MHC.CLN ---
CONSULT PT IS MODERATELY MALNOURISHED PT WITH MILDLY DEPLETED SUBCUTANEOUS FAT AND MUSCLE MASS WITH BMI 18 UPON INTERVIEW, PT AWARE OF HIS LOW BMI AND STATED, I'M WORKING ON IT PT WITH NOTED 7% NONSIGNIFICANT WT GAIN X 6 MONTHS, ALTHOUGH CONTINUES TO SHOW SIGNS OF MALNUTRITION PT'S REPORTED PT DRINKS BOOST SUPPLEMENT AT HOME. PT STATES HE DISLIKES ENSURE BRAND PRODUCTS PT RECEPTIVE TO MAGIC CUP BID TO INCREASE KCALS SUPP TO PROVIDE [id number], 18G PROTEIN MONITOR PO INTAKE AND ENCOURAGE SUPPLEMENT SEE ALSO FULL CLINICAL NUTRITION ASSESSMENT
[2025-02-21] MEDS: Fluticasone/Vilanterol 200/25 BLST.W.DEV 1 PUFF INHALE (16:02)
[2025-02-22] VITALS (10 sets, daily range): BP systolic 91–129; BP diastolic 51–64; PULSE 81–108; RESP 16–20; TEMP 36.2–37.2; O2SAT 91–96
[2025-02-22 07:51] LABS: Venous Blood Gas Refer to POC result
[2025-02-22 07:52] LABS: VBG Base Excess 20.5 mmol/L; VBG HCO3 49 mmol/L (22-26); VBG pCO2 76 mmHg; VBG pH 7.41 (7.32-7.43); VBG pO2 53 mmHg
[2025-02-22] MEDS: Albuterol/Iprat 2.5/0.5MG 3 ML AMPUL.NEB INHALE ×3 (07:52→21:00)
[2025-02-22] MEDS: Fluticasone/Vilanterol 200/25 BLST.W.DEV 1 PUFF INHALE (07:52)
[2025-02-22 08:26] LABS: Blood Urea Nitrogen 17 mg/dL (9-16); Calcium 9.2 mg/dL (8.4-10.2); Creatinine Clr Calc Pharmacy 106.9; Estimated Glomerular Filt Rate > 60; Glucose Random 83 mg/dL (60-115)
[2025-02-22 08:33] LABS: Anion Gap 12 (12-20); Carbon Dioxide 39 mmol/L (22-29); Chloride 97 mmol/L (96-108); Potassium 4.3 mmol/L (3.3-5.1); Sodium 144 mmol/L (135-145)
[2025-02-22] MEDS: Azithromycin 250 MG TABLET PO (08:33)
[2025-02-22] MEDS: Atorvastatin Calcium 80 MG TABLET PO (08:33)
[2025-02-22] MEDS: Lidocaine 4 % Patch ADH..PATCH 1 PATCH TRANSDERMA (08:34)
[2025-02-22] MEDS: Multivitamin TABLET 1 TAB PO (08:34)
[2025-02-22] MEDS: Ketorolac Tromethamine 15 MG/ML VIAL IVPUSH (08:34)
[2025-02-22] MEDS: 0.9 % Sodium Chloride Flush 3 ML SYRINGE IVFLUSH ×2 (08:36→17:19)
--- NOTE | 2025-02-22 08:44 | P.PNPL_ITS ---
Subjective Subjective Date of Service: 02/22/25 Interval history: The patient was seen on exam. Had a good night. Denies any significant chest pain. The patient did undergo a chest x-ray two view demonstrating no evidence of any residual pneumothorax. He has been on suction throughout the night. Prior to the x-ray he was taken off suction to go down for a chest x-ray. Will go ahead and put him on water seal right now plan to repeat x-ray around noontime today. The patient is aware of the develops any shortness of breath chest pain or any other concerning symptoms he is to call staff to re-assess. Objective Data Labs 02/20/25 16:52 02/22/25 07:30 Labs: Laboratory Results - last 24 hr 02/21/25 02/21/25 02/22/25 10:30 10:44 07:30 Hold Purple Top SEE NOTE O2 Saturation 87.0 ABG pH at Pt Temp 7.34 L ABG pCO2 at Pt Temp 91 H* ABG pO2 at Pt Temp 64 L ABG HCO3 50 H ABG Base Excess (Actual) 19.8 VBG pH 7.36 VBG pCO2 91 VBG pO2 67 VBG HCO3 52 H VBG O2 Saturation 89.0 VBG Base Excess 21.6 Sodium 144 Potassium 4.3 Chloride 97 Carbon Dioxide 39 H Anion Gap 12 BUN 17 H Creatinine 0.50 Estim Creat Clear Calc 106.9 Estimated GFR > 60 Random Glucose 83 Calcium 9.2 02/22/25 07:47 Hold Purple Top O2 Saturation ABG pH at Pt Temp ABG pCO2 at Pt Temp ABG pO2 at Pt Temp ABG HCO3 ABG Base Excess (Actual) VBG pH 7.41 VBG pCO2 76 VBG pO2 53 VBG HCO3 49 H VBG O2 Saturation 79.0 VBG Base Excess 20.5 Sodium Potassium Chloride Carbon Dioxide Anion Gap BUN Creatinine Estim Creat Clear Calc Estimated GFR Random Glucose Calcium Review of Systems Constitutional: Denies fever(s) Eyes: Reports no additional eye complaints Reports system reviewed and no additional complaints, except as documented Cardiovascular: Reports palpitations and Reports dyspnea Respiratory: Reports dyspnea and Reports wheezing Gastrointestinal: Reports no additional gastrointestinal complaints Musculoskeletal: Reports no additional musculoskeletal complaints Reports system reviewed and no additional complaints, except as documented Endocrine: Reports palpitations Hematologic/Lymphatic: Reports no additional hematologic/lymphatic complaints Allergic/Immunologic: Reports wheezing Physical Exam 2 Vital Signs: Vital Signs: Last Vital Signs Temp 98.9 F 02/22/25 07:38 Pulse 86 02/22/25 08:00 Resp 18 02/22/25 08:00 BP 115/58 L 02/22/25 07:38 Pulse Ox 92 02/22/25 07:38 O2 Del Method Nasal Cannula 02/22/25 07:38 O2 Flow Rate 3 02/22/25 07:38 Oxygen Flow Rate 15 02/20/25 16:29 BMI result Body Mass Index 18.2 Const: General: tired appearing HEENT: Head: Yes normocephalic Neck: Neck: Yes supple and Yes other (no crepitus) Chest: Chest palpation & inspection: normal inspection of the chest and other (hyperinflated, chest tube in place) Resp: Effort & Inspection: tachypneic Auscultation: diminished lung sounds GI: Palpation (GI): Soft to palpation Skin: General skin exam: no rashes or lesions noted Extrem: General: No cyanosis Procedures Date of Service Date of Service: 02/22/25 Assessment and Plan Assessment and plan (1) Acute on chronic respiratory failure with hypoxia and hypercapnia: Status: Acute (2) Pneumothorax after biopsy: Status: Acute (3) COPD (chronic obstructive pulmonary disease): Status: Acute Plan chest tube to waterseal repeat CXR at noon time continue respiratoru therapy continue oxygen to keep pox 88-95% will follow Time Spent With Patient Time: Total time managing care of this patient today ____ minutes. Progress Note: Quality Stroke Does the patient have a stroke diagnosis?: No
--- NOTE | 2025-02-22 11:10 | MHC.CM.PN ---
IMM 02/22/25, Pt lives with his , he does not have home health services. He has home O2 from [facility]. PCP is Modesto Panda. to transport home at DC, DCP: home, self care or with services. CM to follow for DC needs.
--- NOTE | 2025-02-22 11:53 | P.PNIM_ITS ---
Subjective Subjective Date of Service: 02/22/25 Interval History: pain from tube with deep inspiration CXR without residual PTX, placed on water seal no wheezing Review of Systems Review of Systems: Yes all other systems are reviewed and are negative Physical Exam 2 Vital Signs: Vital Signs: Last Vital Signs Temp 98.9 F 02/22/25 07:38 Pulse 86 02/22/25 08:00 Resp 18 02/22/25 08:00 BP 115/58 L 02/22/25 07:38 Pulse Ox 92 02/22/25 07:38 O2 Del Method Nasal Cannula 02/22/25 07:38 O2 Flow Rate 3 02/22/25 07:38 Oxygen Flow Rate 15 02/20/25 16:29 BMI result Body Mass Index 18.2 Gen: in no acute distress HEENT: sclera anicteric, moist mucus membranes Neck: supple Lungs: diminished, L chest tube to water seal Heart: regular rate and rhythm, no murmurs Abd: soft, non-tender, non-distended Ext: no edema Skin: warm/well-perfused Neuro: alert and oriented x3, no focal findings Psych: appropriate affect Objective Data Active Medications Acetaminophen (Acetaminophen 325 Mg Tablet) 650 mg PO Q6H PRN PRN Reason: Pain, Mild 1-3,fever,headache Albuterol Sulfate (Albuterol Sulfate 90 Mcg 8 Gm Inhaler) 2 puff INHALE Q4H PRN PRN Reason: shortness of breath or wheezing Albuterol/Ipratropium (Albuterol/Iprat 2.5/0.5mg 3 Ml Ampul.Neb) 3 ml INHALE RQID [facility] Last Admin: 02/22/25 07:52 Dose: 3 ml Documented By: JAMES Atorvastatin Calcium (Atorvastatin Calcium 80 Mg Tablet) 80 mg PO DAILY [facility] Last Admin: 02/22/25 08:33 Dose: 80 mg Documented By: TRINIDAD Azithromycin (Azithromycin 250 Mg Tablet) 250 mg PO MOWEFR@0900 [facility] Last Admin: 02/22/25 08:33 Dose: 250 mg Documented By: TRINIDAD Calcium Carbonate (Calcium Carbonate 750 Mg Tab.Chew) 750 mg PO Q4H PRN PRN Reason: Heartburn Fluticasone/Vilanterol (Fluticasone/Vilanterol 200/25 Blst.W.Dev) 1 puff INHALE RDAILY [facility] Last Admin: 02/22/25 07:52 Dose: 1 puff Documented By: JAMES Guaifenesin (Guaifenesin La 600 Mg Tab.Er.12h) 600 mg PO DAILY PRN PRN Reason: COPD Last Admin: 02/21/25 09:52 Dose: 600 mg Documented By: DOBROB Ketorolac Tromethamine (Ketorolac Tromethamine 15 Mg/Ml Vial) 15 mg IVPUSH Q6H PRN PRN Reason: pain, mod to sev Last Admin: 02/22/25 08:34 Dose: 15 mg Documented By: TRINIDAD Lidocaine (Lidocaine 4 % Patch Adh..Patch) 1 patch TRANSDERMA DAILY [facility]; Protocol Last Admin: 02/22/25 08:34 Dose: 1 patch Documented By: TRINIDAD Magnesium Hydroxide (Milk Of Magnesia 30 Ml Oral.Susp) 30 ml PO DAILY PRN PRN Reason: Constipation Melatonin (Melatonin 3 Mg Tablet) 6 mg PO BEDTIME PRN PRN Reason: Insomnia Multivitamins/Vitamin C (Multivitamin Tablet) 1 tab PO DAILY [facility] Last Admin: 02/22/25 08:34 Dose: 1 tab Documented By: TRINIDAD Ondansetron HCl (Ondansetron Hcl 4 Mg/2 Ml Vial) 4 mg IVPUSH Q8H PRN PRN Reason: Nausea and Vomiting Sodium Chloride (0.9 % Sodium Chloride Flush 3 Ml Syringe) 3 ml IVFLUSH QSHIFT [facility] Last Admin: 02/22/25 08:36 Dose: 3 ml Documented By: TRINIDAD Labs 02/20/25 16:52 02/22/25 07:30 Labs: Laboratory Results - last 24 hr 02/22/25 02/22/25 07:30 07:47 Hold Purple Top SEE NOTE VBG pH 7.41 VBG pCO2 76 VBG pO2 53 VBG HCO3 49 H VBG O2 Saturation 79.0 VBG Base Excess 20.5 Anion Gap 12 Estim Creat Clear Calc 106.9 Estimated GFR > 60 Random Glucose 83 Calcium 9.2 Impressions Chest X-Ray 02/22/25 08:00 IMPRESSION: 1. Chest tube formed in the left mid lateral pleural space. 2. Severe emphysema of both lungs. Left-sided pneumothorax is no longer visible 3. Patchy opacity in the left apex is consistent with postbiopsy changes. 4. There is chronic cicatrization type atelectasis of the right middle lobe. Electronically signed by: Daniel Wagner MD 02/22/2025 08:28 AM EDT RP Assessment and Plan (1) Pneumothorax after biopsy: Status: Acute (2) Acute on chronic respiratory failure with hypoxia and hypercapnia: Status: Acute Plan d3 69yo M with advanced COPD on 3L of O2 at home, recently diagnosed with FDG-avid L apical lung nodule and underwent CT-guided biopsy today complicated by pneumothorax, now with pigtail drainage catheter in place post-procedure pneumothorax - Pulmonology following, placed chest tube to waterseal, repeat CXR around noon today, pain control with IV APAP + ketorolac acute/chronic hypoxic + hypercarbic resp failure - appears to retain CO2, goal SaO2 88-92% - improved, d/c'ed opioids COPD not in acute exacerbation - azithromycin, Breo to substitue for Symbicort, albuterol nebs + inhaler prn lung nodule - follow up with Pulm as outpt for biopsy results HLD - atorvastatin VTE ppx - SCDs dispo - eventual home In my clinical judgment, the patient requires continued inpatient hospitalization for the following reasons: chest tube Total time managing care of this patient today: 45 minutes. Quality Stroke Does the patient have a stroke diagnosis?: No VTE Prior VTE?: No VTE Risk Level:: Medical - moderate - high VTE Device Contraindication: N/A - Device Ordered VTE Drug Contraindication: Treatment Not Tolerated
[2025-02-22] MEDS: Acetaminophen 1,000 MG/100 ML PIGGYBACK 400 MG IV ×3 (12:34→23:46)
--- NOTE | 2025-02-22 15:03 | MHC.CLN ---
F/U PT IS MODERATELY MALNOURISHED SEE ALSO FULL CLINICAL NUTRITION ASSESSMENT DATED 02/21/25 DIET RX; REGULAR-APPROPRIATE PO INTAKE 25% X3 MEALS PT'S REPORTED PT DRINKS BOOST SUPPLEMENT AT HOME. PT STATES HE DISLIKES ENSURE BRAND PRODUCTS PT RECEPTIVE TO MAGIC CUP BID TO INCREASE KCALS SUPP TO PROVIDE 580KCALS, 18G PROTEIN MONITOR PO INTAKE AND ENCOURAGE SUPPLEMENT
[2025-02-23] VITALS (10 sets, daily range): BP systolic 112–127; BP diastolic 56–67; PULSE 82–115; RESP 16–20; TEMP 36.1–37.2; O2SAT 91–97
[2025-02-23] MEDS: Albuterol/Iprat 2.5/0.5MG 3 ML AMPUL.NEB INHALE ×4 (08:39→19:31)
[2025-02-23] MEDS: Multivitamin TABLET 1 TAB PO (08:46)
[2025-02-23] MEDS: Atorvastatin Calcium 80 MG TABLET PO (08:46)
[2025-02-23] MEDS: Lidocaine 4 % Patch ADH..PATCH 1 PATCH TRANSDERMA (08:46)
[2025-02-23] MEDS: Ketorolac Tromethamine 15 MG/ML VIAL IVPUSH ×2 (08:47→19:54)
[2025-02-23] MEDS: Acetaminophen 1,000 MG/100 ML PIGGYBACK 400 MG IV ×3 (08:47→23:18)
[2025-02-23] MEDS: Fluticasone/Vilanterol 200/25 BLST.W.DEV 1 PUFF INHALE (08:50)
--- NOTE | 2025-02-23 12:06 | P.PNIM_ITS ---
Subjective Subjective Date of Service: 02/23/25 Interval History: feels a little short of breath but no wheezing pain controlled Review of Systems Review of Systems: Yes all other systems are reviewed and are negative Physical Exam 2 Vital Signs: Vital Signs: Last Vital Signs Temp 97.3 F 02/23/25 11:36 Pulse 99 02/23/25 11:36 Resp 20 02/23/25 11:36 BP 113/60 02/23/25 11:36 Pulse Ox 97 02/23/25 11:36 O2 Del Method Nasal Cannula 02/23/25 11:36 O2 Flow Rate 3.5 02/23/25 11:36 Oxygen Flow Rate 15 02/20/25 16:29 BMI result Body Mass Index 18.2 Gen: in no acute distress HEENT: sclera anicteric, moist mucus membranes Neck: supple Lungs: diminished, L chest tube to water seal with no air leak Heart: regular rate and rhythm, no murmurs Abd: soft, non-tender, non-distended Ext: no edema Skin: warm/well-perfused Neuro: alert and oriented x3, no focal findings Psych: appropriate affect Objective Data Active Medications Acetaminophen (Acetaminophen 325 Mg Tablet) 650 mg PO Q6H PRN PRN Reason: Pain, Mild 1-3,fever,headache Albuterol Sulfate (Albuterol Sulfate 90 Mcg 8 Gm Inhaler) 2 puff INHALE Q4H PRN PRN Reason: shortness of breath or wheezing Albuterol/Ipratropium (Albuterol/Iprat 2.5/0.5mg 3 Ml Ampul.Neb) 3 ml INHALE RQID [facility] Last Admin: 02/23/25 11:25 Dose: 3 ml Documented By: ISMAEL Atorvastatin Calcium (Atorvastatin Calcium 80 Mg Tablet) 80 mg PO DAILY [facility] Last Admin: 02/23/25 08:46 Dose: 80 mg Documented By: TRINIDAD Azithromycin (Azithromycin 250 Mg Tablet) 250 mg PO MOWEFR@0900 [facility] Last Admin: 02/22/25 08:33 Dose: 250 mg Documented By: TRINIDAD Calcium Carbonate (Calcium Carbonate 750 Mg Tab.Chew) 750 mg PO Q4H PRN PRN Reason: Heartburn Fluticasone/Vilanterol (Fluticasone/Vilanterol 200/25 Blst.W.Dev) 1 puff INHALE RDAILY [facility] Last Admin: 02/23/25 08:50 Dose: 1 puff Documented By: BLAKRYSTIN Guaifenesin (Guaifenesin La 600 Mg Tab.Er.12h) 600 mg PO DAILY PRN PRN Reason: COPD Last Admin: 02/21/25 09:52 Dose: 600 mg Documented By: DOBROBradford Acetaminophen (Ofirmev) 1,000 mg in 100 mls @ 400 mls/hr IV Q6H [facility] Last Infusion: 02/23/25 09:35 Dose: Infused Documented By: TRINIDAD Ketorolac Tromethamine (Ketorolac Tromethamine 15 Mg/Ml Vial) 15 mg IVPUSH Q6H PRN PRN Reason: pain, mod to sev Last Admin: 02/23/25 08:47 Dose: 15 mg Documented By: TRINIDAD Lidocaine (Lidocaine 4 % Patch Adh..Patch) 1 patch TRANSDERMA DAILY [facility]; Protocol Last Admin: 02/23/25 08:46 Dose: 1 patch Documented By: TRINIDAD Magnesium Hydroxide (Milk Of Magnesia 30 Ml Oral.Susp) 30 ml PO DAILY PRN PRN Reason: Constipation Melatonin (Melatonin 3 Mg Tablet) 6 mg PO BEDTIME PRN PRN Reason: Insomnia Multivitamins/Vitamin C (Multivitamin Tablet) 1 tab PO DAILY [facility] Last Admin: 02/23/25 08:46 Dose: 1 tab Documented By: TRINIDAD Ondansetron HCl (Ondansetron Hcl 4 Mg/2 Ml Vial) 4 mg IVPUSH Q8H PRN PRN Reason: Nausea and Vomiting Sodium Chloride (0.9 % Sodium Chloride Flush 3 Ml Syringe) 3 ml IVFLUSH QSHIFT [facility] Last Admin: 02/23/25 08:47 Dose: Not Given Documented By: TRINIDAD Non-Admin Reason: IV Running Labs 02/20/25 16:52 02/22/25 07:30 Labs: ITS Impressions Chest X-Ray 02/20/25 16:24 IMPRESSION: Near complete resolution of left pneumothorax status post insertion of a left pleural catheter. A very small left apical pneumothorax is seen There are chronic bilateral interstitial lung changes which are unchanged to previous exam. Electronically signed by: Loki To MD 02/20/2025 04:51 PM EDT RP Chest X-Ray 02/21/25 10:45 IMPRESSION: 1. Chest tube formed in the left mid lateral pleural space. 2. Severe emphysema of both lungs. There is a tiny 2-3 mm left apical pneumothorax. No lateral or basilar pneumothorax. 3. Patchy opacity in the left apex is consistent with postbiopsy changes. 4. There is chronic cicatrization type atelectasis of the right middle lobe. Electronically signed by: Daniel Wagner MD 02/21/2025 11:06 AM EDT RP Chest X-Ray 02/22/25 08:00 IMPRESSION: 1. Chest tube formed in the left mid lateral pleural space. 2. Severe emphysema of both lungs. Left-sided pneumothorax is no longer visible 3. Patchy opacity in the left apex is consistent with postbiopsy changes. 4. There is chronic cicatrization type atelectasis of the right middle lobe. Electronically signed by: Daniel Wagner MD 02/22/2025 08:28 AM EDT RP Chest X-Ray 02/22/25 12:00 IMPRESSION: 1. Chest tube formed in the left mid lateral pleural space. 2. Severe emphysema of both lungs. Trace 2 mm left apical pneumothorax. 3. Patchy opacity in the left apex is consistent with postbiopsy changes. 4. There is chronic cicatrization type atelectasis of the right middle lobe. Electronically signed by: Daniel Wagner MD 02/22/2025 12:56 PM EDT RP Assessment and Plan (1) Pneumothorax after biopsy: Status: Acute (2) Acute on chronic respiratory failure with hypoxia and hypercapnia: Status: Acute Plan d4 for 69yo M with advanced COPD on 3L of O2 at home, recently diagnosed with FDG-avid L apical lung nodule and underwent CT-guided biopsy today complicated by pneumothorax, now with pigtail drainage catheter in place post-procedure pneumothorax - Pulmonology following, to clamp chest tube and repeat CXR and if no PTX will pull, repeat CXR in AM, pain control with IV APAP + ketorolac acute/chronic hypoxic + hypercarbic resp failure - appears to retain CO2, goal SaO2 88-92% - hypoxia resolved after pigtail placed - hypercarbia improved after stopping opioids COPD not in acute exacerbation - azithromycin, Breo to substitue for Symbicort, albuterol nebs + inhaler prn lung nodule - follow up with Pulm as outpt for biopsy results HLD - atorvastatin VTE ppx - SCDs dispo - eventual home In my clinical judgment, the patient requires continued inpatient hospitalization for the following reasons: chest tube Total time managing care of this patient today: 35 minutes. Quality Stroke Does the patient have a stroke diagnosis?: No VTE Prior VTE?: No VTE Risk Level:: Medical - moderate - high VTE Device Contraindication: N/A - Device Ordered VTE Drug Contraindication: Treatment Not Tolerated
--- NOTE | 2025-02-23 12:58 | PM.PNPUL ---
Subjective Subjective Date of Service: 02/23/25 Interval history: The patient was seen and examined. No airleak from chest tube on waterseal and CXR ok. Clamed fro appx 45minutes and repeat CXR ok. Pulled pigtail and doing well. Objective Data Labs 02/20/25 16:52 02/22/25 07:30 Review of Systems Constitutional: Denies fever(s) Eyes: Reports no additional eye complaints Reports system reviewed and no additional complaints, except as documented Cardiovascular: Reports palpitations and Reports dyspnea Respiratory: Reports dyspnea and Reports wheezing Gastrointestinal: Reports no additional gastrointestinal complaints Musculoskeletal: Reports no additional musculoskeletal complaints Reports system reviewed and no additional complaints, except as documented Endocrine: Reports palpitations Hematologic/Lymphatic: Reports no additional hematologic/lymphatic complaints Allergic/Immunologic: Reports wheezing Physical Exam Vital Signs: Vital Signs: Last Vital Signs Temp 97.3 F 02/23/25 11:36 Pulse 99 02/23/25 11:36 Resp 20 02/23/25 11:36 BP 113/60 02/23/25 11:36 Pulse Ox 97 02/23/25 11:36 O2 Del Method Nasal Cannula 02/23/25 11:36 O2 Flow Rate 3.5 02/23/25 11:36 Oxygen Flow Rate 15 02/20/25 16:29 BMI result Body Mass Index 18.2 Const: General: tired appearing HEENT: Head: Yes normocephalic Neck: Neck: Yes supple and Yes other (no crepitus) Chest: Chest palpation & inspection: normal inspection of the chest and other (hyperinflated, chest tube removed dressing CDI) Resp: Effort & Inspection: tachypneic Auscultation: diminished lung sounds GI: Palpation (GI): Soft to palpation Skin: General skin exam: no rashes or lesions noted Extrem: General: No cyanosis Procedures Date of Service Date of Service: 02/23/25 Assessment and Plan Assessment and plan (1) Acute on chronic respiratory failure with hypoxia and hypercapnia: Status: Acute (2) Pneumothorax after biopsy: Status: Acute (3) COPD (chronic obstructive pulmonary disease): Status: Acute Plan chest tube removed, CXR in 2 hours, then in am continue respiratory therapy continue oxygen to keep pox 88-95% CXR in AM, and if unchange, then ok to d/c and f/u with Dr Santacruz Time Spent With Patient Time: Total time managing care of this patient today ____ minutes. Progress Note: Quality Stroke Does the patient have a stroke diagnosis?: No
[2025-02-23] MEDS: 0.9 % Sodium Chloride Flush 3 ML SYRINGE IVFLUSH (20:04)
[2025-02-24 04:00] VITALS: BP 118/68; PULSE 87; RESP 16; TEMP 36.2; O2SAT 97
[2025-02-24 07:08] VITALS: BP 108/59; PULSE 92; RESP 18; TEMP 37.1; O2SAT 92
[2025-02-24] MEDS: Albuterol/Iprat 2.5/0.5MG 3 ML AMPUL.NEB INHALE ×2 (07:32→11:11)
[2025-02-24] MEDS: Fluticasone/Vilanterol 200/25 BLST.W.DEV 1 PUFF INHALE (07:32)
[2025-02-24 07:34] VITALS: PULSE 88; RESP 18; O2SAT 90
--- NOTE | 2025-02-24 08:18 | P.PNIM_ITS ---
Subjective Subjective Date of Service: 02/24/25 Physical Exam 2 Vital Signs: Vital Signs: Last Vital Signs Temp 98.7 F 02/24/25 07:08 Pulse 88 02/24/25 07:34 Resp 18 02/24/25 07:34 BP 108/59 L 02/24/25 07:08 Pulse Ox 92 02/24/25 07:08 O2 Del Method Nasal Cannula 02/24/25 07:08 O2 Flow Rate 3 02/24/25 07:08 Oxygen Flow Rate 15 02/20/25 16:29 BMI result Body Mass Index 18.2 Objective Data Active Medications Acetaminophen (Acetaminophen 325 Mg Tablet) 650 mg PO Q6H PRN PRN Reason: Pain, Mild 1-3,fever,headache Albuterol Sulfate (Albuterol Sulfate 90 Mcg 8 Gm Inhaler) 2 puff INHALE Q4H PRN PRN Reason: shortness of breath or wheezing Albuterol/Ipratropium (Albuterol/Iprat 2.5/0.5mg 3 Ml Ampul.Neb) 3 ml INHALE RQID [facility] Last Admin: 02/24/25 07:32 Dose: 3 ml Documented By: PRINCESS Atorvastatin Calcium (Atorvastatin Calcium 80 Mg Tablet) 80 mg PO DAILY [facility] Last Admin: 02/23/25 08:46 Dose: 80 mg Documented By: TRINIDAD Azithromycin (Azithromycin 250 Mg Tablet) 250 mg PO MOWEFR@0900 [facility] Last Admin: 02/22/25 08:33 Dose: 250 mg Documented By: TRINIDAD Calcium Carbonate (Calcium Carbonate 750 Mg Tab.Chew) 750 mg PO Q4H PRN PRN Reason: Heartburn Fluticasone/Vilanterol (Fluticasone/Vilanterol 200/25 Blst.W.Dev) 1 puff INHALE RDAILY [facility] Last Admin: 02/24/25 07:32 Dose: 1 puff Documented By: PRINCESS Guaifenesin (Guaifenesin La 600 Mg Tab.Er.12h) 600 mg PO DAILY PRN PRN Reason: COPD Last Admin: 02/21/25 09:52 Dose: 600 mg Documented By: JIHAN Acetaminophen (Ofirmev) 1,000 mg in 100 mls @ 400 mls/hr IV Q6H [facility] Last Admin: 02/24/25 06:43 Dose: Not Given Documented By: IRENE Non-Admin Reason: no pain at this time Ketorolac Tromethamine (Ketorolac Tromethamine 15 Mg/Ml Vial) 15 mg IVPUSH Q6H PRN PRN Reason: pain, mod to sev Last Admin: 02/23/25 19:54 Dose: 15 mg Documented By: IRENE Lidocaine (Lidocaine 4 % Patch Adh..Patch) 1 patch TRANSDERMA DAILY [facility]; Protocol Last Admin: 02/23/25 08:46 Dose: 1 patch Documented By: TRINIDAD Magnesium Hydroxide (Milk Of Magnesia 30 Ml Oral.Susp) 30 ml PO DAILY PRN PRN Reason: Constipation Melatonin (Melatonin 3 Mg Tablet) 6 mg PO BEDTIME PRN PRN Reason: Insomnia Multivitamins/Vitamin C (Multivitamin Tablet) 1 tab PO DAILY [facility] Last Admin: 02/23/25 08:46 Dose: 1 tab Documented By: TRINIDAD Ondansetron HCl (Ondansetron Hcl 4 Mg/2 Ml Vial) 4 mg IVPUSH Q8H PRN PRN Reason: Nausea and Vomiting Sodium Chloride (0.9 % Sodium Chloride Flush 3 Ml Syringe) 3 ml IVFLUSH QSHIFT [facility] Last Admin: 02/23/25 20:04 Dose: 3 ml Documented By: IRENE Labs 02/20/25 16:52 02/22/25 07:30 Assessment and Plan (1) Pneumothorax after biopsy: Status: Acute (2) Acute on chronic respiratory failure with hypoxia and hypercapnia: Status: Acute Plan d4 for 69yo M with advanced COPD on 3L of O2 at home, recently diagnosed with FDG-avid L apical lung nodule and underwent CT-guided biopsy today complicated by pneumothorax, now with pigtail drainage catheter in place post-procedure pneumothorax - Pulmonology following, to clamp chest tube and repeat CXR and if no PTX will pull, repeat CXR in AM, pain control with IV APAP + ketorolac acute/chronic hypoxic + hypercarbic resp failure - appears to retain CO2, goal SaO2 88-92% - hypoxia resolved after pigtail placed - hypercarbia improved after stopping opioids COPD not in acute exacerbation - azithromycin, Breo to substitue for Symbicort, albuterol nebs + inhaler prn lung nodule - follow up with Pulm as outpt for biopsy results HLD - atorvastatin VTE ppx - SCDs dispo - eventual home In my clinical judgment, the patient requires continued inpatient hospitalization for the following reasons: chest tube Total time managing care of this patient today: 35 minutes. Quality Stroke Does the patient have a stroke diagnosis?: No VTE Prior VTE?: No VTE Risk Level:: Medical - moderate - high VTE Device Contraindication: N/A - Device Ordered VTE Drug Contraindication: Treatment Not Tolerated
[2025-02-24] MEDS: Multivitamin TABLET 1 TAB PO (09:28)
[2025-02-24] MEDS: Atorvastatin Calcium 80 MG TABLET PO (09:28)
[2025-02-24] MEDS: 0.9 % Sodium Chloride Flush 3 ML SYRINGE IVFLUSH (09:33)
[2025-02-24 10:38] LABS: MANUAL DIFF FLAG NO
[2025-02-24 10:47] LABS: Basophils Percent Auto 0.3 % (0-2); Eosinophils Absolute Auto 0.2 X10*3/uL (0.0-0.4); Eosinophils Percent Auto 3.1 % (0-4); Hematocrit 36.9 % (42.0-52.0); Hemoglobin 11.7 g/dl (14.0-18.0); Imm Gran Abs Auto 0.02 X10*3/uL (0.00-0.03); Imm Gran Pct Auto 0.3 % (0.0-0.4); Lymphocytes Absolute Auto 0.8 X10*3/uL (1.2-4.9); Lymphocytes Percent Auto 10.9 % (20-40); Mean Corpuscular HGB Conc 31.7 g/dl (31.0-36.0); Mean Corpuscular Hemoglobin 30.2 pg (27.0-33.0); Mean Corpuscular Volume 95.1 fL (80.0-98.0); Mean Platelet Volume 11.1 fL (9.4-12.4); Monocytes Absolute Auto 0.5 X10*3/uL (0.1-1.2); Monocytes Percent Auto 6.4 % (2-11); Neutrophils Absolute Auto 5.6 x10*3/uL (2.0-8.3); Platelet Count 194 X10*3/uL (160-400); Red Blood Count 3.88 X10*6/uL (4.60-5.80); Red Cell Distribution Width 12.7 % (11.0-16.0); White Blood Count 7.1 X10*3/uL (4.8-10.8)
[2025-02-24 11:14] VITALS: PULSE 99; RESP 18; O2SAT 94
[2025-02-24 11:25] VITALS: BP 109/51; PULSE 96; RESP 20; TEMP 36.6; O2SAT 99
[2025-02-24 11:27] LABS: Blood Urea Nitrogen 18 mg/dL (9-16); Calcium 9.4 mg/dL (8.4-10.2); Creatinine Clr Calc Pharmacy 95.4; Estimated Glomerular Filt Rate > 60; Glucose Random 149 mg/dL (60-115)
[2025-02-24 11:33] LABS: Anion Gap 12 (12-20); Carbon Dioxide 38 mmol/L (22-29); Chloride 99 mmol/L (96-108); Potassium 3.7 mmol/L (3.3-5.1); Sodium 145 mmol/L (135-145)
[2025-02-24] MEDS: Acetaminophen 1,000 MG/100 ML PIGGYBACK 400 MG IV (12:06)
--- NOTE | 2025-02-24 12:07 | PM.DS ---
DS: Providers Provider Date of Service: 02/24/25 Date of admission: 02/20/25 17:03 Date of discharge: 02/24/25 Primary care physician: Unknown Physician Attending physician on admission: Bassam So Consults: 02/20/25 17:02 Consult to Pulmonology Routine Consulting Provider: [facility] Pulmonology Services Reason for consultation: pneumothorax Attending physician on discharge: Kira Guerrero Discharging clinician: Graciela Green DS: Diagnosis Discharge Diagnosis (1) Pneumothorax after biopsy: Status: Acute (2) Acute on chronic respiratory failure with hypoxia and hypercapnia: Status: Acute DS: Summary Hospital Course Hospital Course: HPI on admission by Dr. So 02/20: 69yo M with advanced COPD on 3L of O2 at home, followed by Dr Abdoulaye Santacruz at [facility] Pulmonology and in the [facility] lung cancer screening program. He had a screening CT on 01/21/25 that showed a suspicious nodule in the left upper lobe. This was FDG-avid on PET scan 02/18/25. He underwent CT-guided biopsy today by IR. He suddenly became short of breath and cyanotic with SaO2 as low as 50%. A CT showed a moderate L-sided pneumothorax and he underwent emergent placement of a pigtail drainage catheter with near-complete resolution of the pneumothorax, re-expansion of the left lung, and resolution of his respiratory distress and cyanosis. He was sent to the ED and referred to the hospitalist team for admission. Currently he feels well, though he is shaken up and doesn't really remember the events surrounding his hypoxic event. He has only minor discomfort at the tube insertion site. He has chronic cough but has been a little worse lately. No fever, chills, or sputum production. No hemoptysis. No weight loss. Hospital course: 69yo M with advanced COPD on 3L of O2 at home, recently diagnosed with FDG-avid L apical lung nodule and underwent CT-guided biopsy today complicated by pneumothorax, now wiht pigtail catherer placed by pulomonology with was subsequently removed with repeat chest xrays negative for any recurrent pneumothorax. Ambulatory with walker on discharge, functional status at baseline. Follow-up with pulmonology on discharge Post-procedure pneumothorax Pigtail catheter to water seal placed 02/21 by pulmonology CXRs following suction discontinuation negative for pneumothorax recurrence Blood gases remained stable APAP and ketorolac use for pain acute/chronic hypoxic + hypercarbic resp failure Initially with O2 50% following CT-guided chest tube placement. Significant improvement following pigtail placement, back to baseline 3 L O2 Blood gases stable following placement Continue O2 to maintain oximetry 88-92%. Continues with ambulatory hypoxia to 83-84%, RT recommending 6L on ambulation COPD not in acute exacerbation Continued on azithromycin, Breo to substitue for Symbicort, albuterol nebs + inhaler prn lung nodule - follow up with Pulm as outpt for biopsy results HLD - atorvastatin Status at Discharge Functional status at discharge: uses cane/walker Time Attestation Discharge Coordination Time (in mins): 45 Quality: Safe Use of Opioids Does Pt have an Active Cancer Diagnosis on the Problem List?: No Quality: Stroke Does the patient have a stroke diagnosis?: No Physical Exam Vital Signs: Vital Signs: Last Vital Signs Temp 97.8 F 02/24/25 11:25 Pulse 96 02/24/25 11:25 Resp 20 02/24/25 11:25 BP 109/51 L 02/24/25 11:25 Pulse Ox 99 02/24/25 11:25 O2 Del Method Nasal Cannula 02/24/25 11:25 O2 Flow Rate 3 02/24/25 11:25 Oxygen Flow Rate 15 02/20/25 16:29 BMI result Body Mass Index 18.2 DS: Data Data Completed and Pending Labs on day of discharge: Laboratory Results - last 24 hr 02/24/25 09:50 WBC 7.1 RBC 3.88 L Hgb 11.7 L Hct 36.9 L MCV 95.1 MCH 30.2 MCHC 31.7 RDW 12.7 Plt Count 194 MPV 11.1 Immature Gran % (Auto) 0.3 Neut % (Auto) 79.0 H Lymph % (Auto) 10.9 L [place] % (Auto) 6.4 Eos % (Auto) 3.1 Baso % (Auto) 0.3 Lymph # (Auto) 0.8 L [place] # (Auto) 0.5 Eos # (Auto) 0.2 Baso # (Auto) 0.0 Abs Immat Gran (auto) 0.02 Absolute Neuts (auto) 5.6 Absolute Nucleated RBC 0.000 Nucleated RBC % (auto) 0.0 Sodium 145 Potassium 3.7 Chloride 99 Carbon Dioxide 38 H Anion Gap 12 BUN 18 H Creatinine 0.56 Estim Creat Clear Calc 95.4 Estimated GFR > 60 Random Glucose 149 H Calcium 9.4 Discharge Plan Discharge Anticipated Discharge Date/Time: 02/24/25 11:55 Patient Disposition: Home, Self-Care Discharge Diagnosis: Pneumothorax, Acute on chronic respiratory failure, pulmonary nodules Referrals: Bailee Santacruz MD [Physician] - 1 Week (f/up on lung biopsy) Physician,Mariana J [Primary Care Provider] - 1 Week Discharge Medications: Continued budesonide-formoterol [Symbicort] 160-4.5 mcg/actuation HFA aerosol inhaler 2 puff inhalation BID 90 Days Qty: 30.6 3RF atorvastatin 80 mg tablet 80 mg PO DAILY guaifenesin [Mucinex] 600 mg tablet extended release 12hr 600 mg PO DAILY PRN (Reason: COPD) azithromycin 250 mg tablet 250 mg PO MOWEFR@0900 glucosamine HCl 1,500 mg tablet 1,500 mg PO DAILY Rx Instructions: administer with a meal aspirin 81 mg tablet,delayed release (DR/EC) 81 mg PO Q OTHER DAY multivitamin [Daily Multi-Vitamin] Tablet 1 tab PO DAILY albuterol sulfate 90 mcg/actuation HFA aerosol inhaler 2 puff inhalation Q4-6H PRN (Reason: shortness of breath or wheezing) 90 Days Qty: 3 2RF ipratropium-albuterol 0.5 mg-3 mg(2.5 mg base)/3 mL solution for nebulization 3 ml inhalation QID Diet: Advance to usual diet Activity on Discharge: Use cane or walker Stand Alone Forms: Patient Portal Discharge page Print Language: Moldovan Care Plan Goals: Follow up with pulmonology, continue pulmonary rehab and lung cancer screenings Continue home o2 Health Concerns: Acute on chronic respiratory failure Pneumothorax Pulmonary nodules COPD History of smoking Plan of Treatment: Continue home O2, titrate as needed to maintain oxygen levels 88%-95% per pulmonology. Increase to 6L with ambulation. Follow-up with pulmonology as scheduled and to discuss biopsy results further. Continue with lung cancer screenings. Continue home inhalers, albuterol as needed. Assessment: Acute on chronic hypercapnic hypoxic respiratory failure due to pneumothorax following CT-guided biopsy performed by Interventional Radiology. Blood gases have remained stable and you have weaned back to 3 L O2. Chest tube has been removed without recurrence of pneumothorax. COPD without any acute exacerbation. Continue home inhalers on discharge. Follow-up with pulmonology. Continue all other home medications.
[2025-02-24 14:20] VITALS: PULSE 110; PULSE 112; PULSE 120; PULSE 122; O2SAT 84; O2SAT 90; O2SAT 94; O2SAT 95
--- NOTE | 2025-02-24 15:04 | MHC.CM.PN ---
PT TO [place] HOME TODAY WITH NO SERVICES VIA PRIVATE TRANSPORT
== END 2025-02-24 15:29 | disposition home or self-care (01) | DRG 199 ==
LOC: HO.ED 16:48 → HO.EDOVER 17:17 → HO.S3 22:54 → HO.IMC 02-21 11:31
PROVIDERS: Hospitalist; Admitting Provider Family Medicine; Emergency Provider Emergency Medicine; Visit Provider Physician Assistant
DX: J95.811 Postprocedural pneumothorax (principal); J96.21 Acute and chronic respiratory failure with hypoxia; J96.22 Acute and chronic respiratory failure with hypercapnia; J44.9 Chronic obstructive pulmonary disease, unspecified; E78.5 Hyperlipidemia, unspecified; R91.1 Solitary pulmonary nodule; Y84.8 Other medical procedures as the cause of abnormal reaction of the patient, or of later complication, without mention of misadventure at the time of the procedure; Z99.81 Dependence on supplemental oxygen; Z87.891 Personal history of nicotine dependence; Z79.82 Long term (current) use of aspirin; Z79.899 Other long term (current) drug therapy
CPT/HCPCS: 32408; 32551; 36415; 36600; 71045; 71046; 80048; 80053; 82803; 85025; 85610; 88305; 88312; 93005; 94640; 99285; C1729; J0131; J1885; J2003; J2250; J2270; J2310; J3010; J7120

== ENCOUNTER → 2025-02-20 16:24 | Outpatient (BNV) | payer MEDICARE, SELFPAY | PROVIDERS: Admitting Provider Family Medicine; Emergency Provider Emergency Medicine; Visit Provider Internal Medicine Cardiovascular Disease | DX: R00.0 Tachycardia, unspecified (principal) | CPT/HCPCS: 93010 ==

== ENCOUNTER 2025-02-20 17:03 | Outpatient (BNV) | payer MEDICARE, SELFPAY | END 2025-02-23 08:30 | PROVIDERS: Admitting Provider Family Medicine; Emergency Provider Emergency Medicine; Visit Provider Specialist | DX: J95.811 Postprocedural pneumothorax (principal) | CPT/HCPCS: 71045 ==

== ENCOUNTER 2025-02-20 17:03 | Outpatient (BNV) | payer MEDICARE, SELFPAY | END 2025-02-21 09:57 | PROVIDERS: Admitting Provider Family Medicine; Emergency Provider Emergency Medicine; Visit Provider Radiology Diagnostic Radiology | DX: J43.9 Emphysema, unspecified (principal); R91.8 Other nonspecific abnormal finding of lung field | CPT/HCPCS: 71045 ==

== ENCOUNTER 2025-02-20 17:03 | Outpatient (BNV) | payer MEDICARE, SELFPAY | END 2025-02-22 08:00 | PROVIDERS: Admitting Provider Family Medicine; Emergency Provider Emergency Medicine; Visit Provider Radiology Diagnostic Radiology | DX: J44.1 Chronic obstructive pulmonary disease with (acute) exacerbation (principal); J93.83 Other pneumothorax | CPT/HCPCS: 71045; 71046 ==

== ENCOUNTER 2025-02-20 17:03 | Outpatient (BNV) | payer MEDICARE, SELFPAY | END 2025-02-24 09:38 | PROVIDERS: Admitting Provider Family Medicine; Emergency Provider Emergency Medicine; Visit Provider Radiology Diagnostic Radiology | DX: J93.83 Other pneumothorax (principal) | CPT/HCPCS: 71045 ==

== ENCOUNTER → 2025-02-20 17:03 | Outpatient (BNV) | payer MEDICARE, SELFPAY | PROVIDERS: Admitting Provider Family Medicine; Emergency Provider Emergency Medicine; Visit Provider Family Medicine | DX: J95.811 Postprocedural pneumothorax (principal); J96.21 Acute and chronic respiratory failure with hypoxia; J96.22 Acute and chronic respiratory failure with hypercapnia | CPT/HCPCS: 99223; 99233 ==

== ENCOUNTER → 2025-02-20 17:03 | Outpatient (BNV) | payer MEDICARE, SELFPAY | PROVIDERS: Admitting Provider Family Medicine; Emergency Provider Emergency Medicine; Visit Provider Hospitalist | DX: J95.811 Postprocedural pneumothorax (principal); J96.21 Acute and chronic respiratory failure with hypoxia; J96.22 Acute and chronic respiratory failure with hypercapnia; J44.9 Chronic obstructive pulmonary disease, unspecified; R91.8 Other nonspecific abnormal finding of lung field | CPT/HCPCS: 99222 ==

== ENCOUNTER 2025-03-06 13:08 | Outpatient (AMB) | payer MEDICARE, SELFPAY ==
--- NOTE | 2025-03-06 13:15 | MHC.OFFVIS ---
Vital Signs 03/06/25 13:16 Height 5 ft 9 in Weight 122 lb 5.705 oz BMI 18.1 BP 140/62 H Blood Pressure Location Rt brachial Pulse 107 H Pulse Source Pulse Oximeter Pulse Oximetry (%) 91 L Oxygen Delivery Method Nasal Cannula Oxygen Flow Rate 3 Intake Visit Reasons: HH f/u Intake Note: pt is here for follow up, no endurance, no energy, appetite not the greatest. oxygen 24 hours a day, 3-4 liter flow. Economic Development Manager Required: No Allergies No Known Allergies Allergy (Verified 03/06/25 13:23) [facility] Medical History Moderate to severe aortic stenosis Respiratory failure with hypoxia Tachycardia Dyspnea on minimal exertion BPH (benign prostatic hyperplasia) Hyperlipidemia Personal history of nicotine dependence Pulmonary nodules COPD (chronic obstructive pulmonary disease) Surgical History History of Mohs micrographic surgery for skin cancer History of cataract surgery History of right inguinal hernia repair Social History Household Members: Spouse Housing: House Are you a primary care transitions manager to a significant other at home: No Do you presently have visiting nurse or other home services: No Patient Tobacco Use Status: Former Tobacco user Years Smoked: 50 Second Hand Smoke Exposure: No service: No Coding
[2025-03-06 13:16] VITALS: BP 140/62; PULSE 107; O2SAT 91; BMI 18.1
--- NOTE | 2025-03-06 14:19 | MHC.OFFVIS ---
Vital Signs 03/06/25 13:16 Height 5 ft 9 in Weight 122 lb 5.705 oz BMI 18.1 BP 140/62 H Blood Pressure Location Rt brachial Pulse 107 H Pulse Source Pulse Oximeter Pulse Oximetry (%) 91 L Oxygen Delivery Method Nasal Cannula Oxygen Flow Rate 3 Intake Visit Reasons: HH f/u Allergies No Known Allergies Allergy (Verified 03/06/25 14:19) Medication List - Last Reconciled 03/06/25 by Bailee Santacruz MD albuterol sulfate 90 mcg/actuation 2 puffs inhalation Q4-6H PRN 90 days aspirin 81 mg PO Q OTHER DAY atorvastatin 80 mg PO DAILY azithromycin 250 mg PO MOWEFR@0900 90 days glucosamine HCl 1,500 mg PO DAILY guaifenesin ER (Mucinex) 600 mg PO DAILY PRN ipratropium-albuterol 0.5 mg-3 mg(2.5 mg base)/3 mL 3 mL inhalation QID multivitamin (Daily Multi-Vitamin tablet) 1 tab PO DAILY Symbicort 160-4.5 mcg/actuation (budesonide-formoterol) 2 puffs inhalation BID 90 days NS Do you need a note to return to daycare/school/sports/work: No HPI HPI HH f/u: Details: Osbaldo, 69 years old gentleman who underwent percutaneous needle biopsy of a left upper lobe nodule, on He had postprocedure complication of sudden pneumothorax of the left lung, He had chest tube placed in the emergency room and then admitted for further follow-up. Initially he had the chest tube to suction, and on 02/24/25, pneumothorax had resolved chest tube removed and he was discharged home. During his hospitalization he had acute on chronic respiratory failure with hypercapnia and hypoxemia. Venous BG on the day of discharge was as follows. PH 7.41 piece he O2 76 and PO2 of 54. Hco3 level was 49, c/w chronic compensated respiratory failure. Since discharge home he is doing fairly well and remains stable, he is on oxygen therapy 24 hours a day , usually 2-3 L/minute but when he goes outdoors and walks he has to [place] it up to 4 or 5 L/minute. He does sleep with oxygen 2 L/minute. Still has cough with yellowish/brown expectoration. It is somewhat hard to bring up the phlegm. He is now off oral prednisone. He feels definitely improved and more stable at this time. [facility] Medical History Moderate to severe aortic stenosis Respiratory failure with hypoxia Tachycardia Dyspnea on minimal exertion BPH (benign prostatic hyperplasia) Hyperlipidemia Personal history of nicotine dependence Pulmonary nodules COPD (chronic obstructive pulmonary disease) Surgical History History of Mohs micrographic surgery for skin cancer History of cataract surgery History of right inguinal hernia repair Social History Household Members: Spouse Housing: House Are you a primary child care attendant school to a significant other at home: No Do you presently have visiting nurse or other home services: No Patient Tobacco Use Status: Former Tobacco user Years Smoked: 50 Second Hand Smoke Exposure: No service: No Review of Systems Const All systems reviewed & are unremarkable except as noted in HPI and below Eyes Reports no additional complaints ENT Reports nasal congestion (Off and on, but now every day for the last 3-4 days) Card Denies irregular heart rhythm, Denies leg edema and Reports dyspnea on exertion Resp Reports as per HPI and Reports dyspnea on exertion GI Reports no additional complaints Reports no additional complaints Musc Reports no additional complaints Skin/Breast Reports system reviewed and no additional complaints, except as documented Neuro Reports no additional complaints Psych Reports no additional complaints Physical Exam Vital Signs: Last Vital Signs Pulse 107 H 03/06/25 13:16 BP 140/62 H 03/06/25 13:16 Pulse Ox 91 L 03/06/25 13:16 Oxygen Delivery Method Nasal Cannula 03/06/25 13:16 Oxygen Flow Rate 3 03/06/25 13:16 BMI result Body Mass Index 18.1 Const General: comfortable, no acute distress, alert and awake Orientation/consciousness: patient oriented x3 HEENT Head: Yes normal to inspection General nose exam: No nasal polyps present and No nasal discharge present Face and sinus: Yes sinuses nontender Mouth: oropharynx normal Throat: Yes posterior oropharynx normal Eyes General: appearance normal, both eyes and all related structures Neck Neck: Yes normal visual inspection, Yes no lymphadenopathy, Yes trachea midline and Yes no JVD Thyroid: Thyroid normal Chest Chest palpation & inspection: normal inspection of the chest, normal palpation of entire chest wall and no tenderness Resp Other: PERCUSSION NOTE IS HYPER-RESONANT, BREATH SOUNDS ARE VERY DISTANT WITH PROLONGED EXPIRATORY PHASE. BUT NO WHEEZES RHONCHI OR CREPS ARE HEARD. Cardio Palpation: normal PMI Rate: regular rate Rhythm: regular rhythm Heart sounds: no gallops and no murmurs GI Palpation (GI): Soft to palpation, nontender, No hepatosplenomegaly present and no masses Auscultation: normal bowel sounds Back/Spine/Pelvis Thoracic/Lumbar Spine: thoracic and lumbar spine normal to inspection Skin General skin exam: no rashes or lesions noted Neuro General: patient oriented x3 and no focal motor deficits Cranial nerves: Yes CN's II-XII intact bilaterally Extrem General: Yes normal to inspection, Yes no clubbing, cyanosis or edema and Yes no calf tenderness Psych Appearance: grossly normal and well kempt Speech and movement: Normal speech and movement present Results Reviewed Results Reviewed: Last VBGs Ph 7.41. pco2 76, Po2 53 Assessment & Plan Assessment & Plan (1) COPD (chronic obstructive pulmonary disease): Comment: This 69 years old gentleman has severe obstructive airway disorder. It is due to his previous smoking. After recent pneumothorax and treatment for respiratory failure, he is now improved and relatively stable. Needs to stay on oxygen carefully avoiding over oxygenation. Code(s): J44.9 - Chronic obstructive pulmonary disease, unspecified Category: Medical Plan: Azithromycin 250 mg on ,, to continue. Symbicort 160-4.52 puffs b.i.d.. Ipratropium-albuterol by nebulizer Q 6 hours while awake Albuterol sulfate HFA 2 puffs Q 4-6 hours p.r.n. He is fairly stable at this time and is advised to go back to pulmonary rehab program. We discussed about Zeypher Valves placement. I told him that he should wait for a few more weeks to discuss. about that. (2) Respiratory failure with hypoxia: Comment: He has the hypoxemia which gets worse on walking around. He also has hypercapnia which caused acute on chronic respiratory failure during his hospitalization. At the time of discharge the venous blood gases were consistent with chronic compensated respiratory failure, with pCO2 76 and bicarb level 49 Code(s): J96.91 - Respiratory failure, unspecified with hypoxia Category: Medical Plan: Discussed in detail about his chronic respiratory failure. Advised to use O2 2 L/minute during the night/sleep and when walking around during the daytime if his O2 sat falls below 89% then he can increase O2 to 3 or at the most 4 L/minute. I explained to him why he should not over use the oxygen, because it can augment his respiratory failure. He should try to maintain O2 sat between 89-92%, He needs to do deep breathing exercises with pursed lip technique. I would add ACETAZOLAMIDE 250 mg once a day , his chronic respiratory failure. (3) Personal history of nicotine dependence: Comment: (former smoker, 1ppd x 50yrs, 50pyh, quit ~04/2021) Code(s): Z87.891 - Personal history of nicotine dependence Category: Medical Plan: Explained about smoking and he is absolutely not allowed to go back to smoking. He will continue to have annual lung screening with low-dose CT scan. Coding Level of Care Code Est Pt Level 4 (44928) Diagnoses COPD (chronic obstructive pulmonary disease) J44.9 Respiratory failure with hypoxia J96.91 Personal history of nicotine dependence Z87.891
--- OUTSIDE RECORDS SUMMARY | 2025-03-06 14:44 | XMS_ITS | Clinical Summary ---
Author Organization [facility] Address [address] [place] [address] Care Team Providers Care Workers Compensation Adjuster Name Role Phone Unavailable Primary Care Provider [...]
== END 2025-03-06 13:56 | disposition home or self-care (01) ==
LOC: HO.HPS 13:08
PROVIDERS: PCP Internal Medicine; Visit Provider Internal Medicine
DX: J44.9 Chronic obstructive pulmonary disease, unspecified (principal); J96.91 Respiratory failure, unspecified with hypoxia; Z87.891 Personal history of nicotine dependence
CPT/HCPCS: 99214

== ENCOUNTER → 2025-03-06 13:08 | Outpatient (BNVA) | payer MEDICARE, SELFPAY | PROVIDERS: PCP Internal Medicine; Visit Provider Internal Medicine | DX: J44.9 Chronic obstructive pulmonary disease, unspecified (principal); J96.22 Acute and chronic respiratory failure with hypercapnia; Z87.891 Personal history of nicotine dependence; J96.21 Acute and chronic respiratory failure with hypoxia; Z99.81 Dependence on supplemental oxygen | CPT/HCPCS: 99212 ==

== ENCOUNTER 2025-04-02 09:34 | Outpatient (REF) | payer MEDICARE, SELFPAY ==
[2025-04-02 11:01] LABS: Venous Blood Gas Refer to POC result
[2025-04-02 11:04] LABS: VBG HCO3 50 mmol/L (22-26); VBG O2 % Saturation 50.0 %
== END 2025-04-02 09:35 | disposition home or self-care (01) ==
LOC: HO.LAB 09:34
PROVIDERS: PCP Internal Medicine; Visit Provider Internal Medicine
DX: J44.9 Chronic obstructive pulmonary disease, unspecified (principal); J96.91 Respiratory failure, unspecified with hypoxia; R91.8 Other nonspecific abnormal finding of lung field; Z87.891 Personal history of nicotine dependence; Z99.81 Dependence on supplemental oxygen; Z79.899 Other long term (current) drug therapy
CPT/HCPCS: 36415; 82803; 99212

== ENCOUNTER 2025-04-02 09:34 | Outpatient (AMB) | payer MEDICARE, SELFPAY ==
--- NOTE | 2025-04-02 09:46 | A.OFFVIS_ITS ---
Vital Signs 04/02/25 10:01 Height 5 ft 9 in Weight 122 lb 5.705 oz BMI 18.1 BP 120/62 Blood Pressure Location Lt brachial Position Sitting Pulse 106 H Pulse Source Pulse Oximeter Pulse Oximetry (%) 94 Oxygen Delivery Method Nasal Cannula Oxygen Flow Rate 3 Intake Visit Reasons: COPD Intake Note: pt is here for follow up and states he is doing well. Allergies No Known Allergies Allergy (Verified 04/02/25 10:34) Medication List - Last Reconciled 04/02/25 by Bailee Santacruz MD acetazolamide 250 mg PO DAILY 30 days albuterol sulfate 90 mcg/actuation 2 puffs inhalation Q4-6H PRN 90 days aspirin 81 mg PO Q OTHER DAY atorvastatin 80 mg PO DAILY azithromycin 250 mg PO MOWEFR@0900 90 days glucosamine HCl 1,500 mg PO DAILY guaifenesin ER (Mucinex) 600 mg PO DAILY PRN ipratropium-albuterol 0.5 mg-3 mg(2.5 mg base)/3 mL 3 mL inhalation QID PRN multivitamin (Daily Multi-Vitamin tablet) 1 tab PO DAILY prednisone 20 mg PO BID 5 days Symbicort 160-4.5 mcg/actuation (budesonide-formoterol) 2 puffs inhalation BID 90 days NS Do you need a note to return to daycare/school/sports/work: No HPI HPI COPD: Details: THIS 69 YEARS OLD GENTLEMAN WITH ADVANCED CHRONIC OBSTRUCTIVE PULMONARY DISEASE, COMES FOR ROUTINE FOLLOW-UP. SINCE LAST VISIT HE HAS BEEN PARTICIPATING IN PULMONARY REHAB PROGRAM WHICH HE LIKES VERY MUCH AND IS GETTING BETTER. HE HAD 1 EXACERBATION WHICH HE TREATED WITH PREDNISONE 20 MG B.I.D. FOR 5 DAYS, AND GOT BACK TO HIS BASELINE. HE IS DOING VERY WELL WITH THE CURRENT REGIMEN. STILL WEAK AND WHEN HE GOES OUTDOORS HE NEEDS WHEELCHAIR, BUT HE CAN WALK AROUND IN THE HOUSE. HE IS USING O2 2 L/MINUTE, 24 HOURS A DAY FOR HIS HYPERCAPNIA HE WAS STARTED ON ACETAZOLAMIDE BUT HE COULD NOT TOLERATE, FELT IF IT WAS CAUSING SOME LIGHTHEADEDNESS . HE REMAINS FULLY ALERT DURING THE DAYTIME AND SLEEPS WELL AT NIGHT WITH O2 2 L/MINUTE. STEW DID GO TO SEE DR. JOSIAS CASAS, FOR A 2ND OPINION, ESPECIALLY FOR POSSIBLE PLACEMENT OF ZEPHYR VALVES. HE RECOMMENDED THAT STEW SHOULD CONTINUE ON THE CURRENT REGIMEN, INCLUDING PULMONARY REHAB PROGRAM. HE ALSO 2 STEW THAT HE WOULD NEED TO SEE AN INTERVENTIONAL HUMAN RESOURCES DISTRICT MANAGER AT [facility] TO DISCUSS ABOUT ZEPHYR VALVES. [facility] Medical History Moderate to severe aortic stenosis Respiratory failure with hypoxia Tachycardia Dyspnea on minimal exertion BPH (benign prostatic hyperplasia) Hyperlipidemia Personal history of nicotine dependence Pulmonary nodules COPD (chronic obstructive pulmonary disease) Surgical History History of Mohs micrographic surgery for skin cancer History of cataract surgery History of right inguinal hernia repair Social History Household Members: Spouse Housing: House Are you a primary elderly caregiver to a significant other at home: No Do you presently have visiting nurse or other home services: No Patient Tobacco Use Status: Former Tobacco user Years Smoked: 50 Second Hand Smoke Exposure: No service: No Review of Systems Const All systems reviewed & are unremarkable except as noted in HPI and below Eyes Reports no additional complaints ENT Reports nasal congestion (Off and on, but now every day for the last 3-4 days) Card Denies irregular heart rhythm, Denies leg edema and Reports dyspnea on exertion Resp Reports as per HPI and Reports dyspnea on exertion GI Reports no additional complaints Reports no additional complaints Musc Reports no additional complaints Skin/Breast Reports system reviewed and no additional complaints, except as documented Neuro Reports no additional complaints Psych Reports no additional complaints Physical Exam Vital Signs: Last Vital Signs Pulse 106 H 04/02/25 10:01 BP 120/62 04/02/25 10:01 Pulse Ox 94 04/02/25 10:01 Oxygen Delivery Method Nasal Cannula 04/02/25 10:01 Oxygen Flow Rate 3 04/02/25 10:01 BMI result Body Mass Index 18.1 Const General: comfortable, no acute distress, alert and awake Orientation/consciousness: patient oriented x3 HEENT Head: Yes normal to inspection General nose exam: No nasal polyps present and No nasal discharge present Face and sinus: Yes sinuses nontender Mouth: oropharynx normal Throat: Yes posterior oropharynx normal Eyes General: appearance normal, both eyes and all related structures Neck Neck: Yes normal visual inspection, Yes no lymphadenopathy, Yes trachea midline and Yes no JVD Thyroid: Thyroid normal Chest Chest palpation & inspection: normal inspection of the chest, normal palpation of entire chest wall and no tenderness Resp Other: PERCUSSION NOTE IS HYPER-RESONANT, BREATH SOUNDS ARE VERY DISTANT WITH PROLONGED EXPIRATORY PHASE. BUT NO WHEEZES RHONCHI OR CREPS ARE HEARD. Cardio Palpation: normal PMI Rate: regular rate Rhythm: regular rhythm Heart sounds: no gallops and no murmurs GI Palpation (GI): Soft to palpation, nontender, No hepatosplenomegaly present and no masses Auscultation: normal bowel sounds Back/Spine/Pelvis Thoracic/Lumbar Spine: thoracic and lumbar spine normal to inspection Skin General skin exam: no rashes or lesions noted Neuro General: patient oriented x3 and no focal motor deficits Cranial nerves: Yes CN's II-XII intact bilaterally Extrem General: Yes normal to inspection, Yes no clubbing, cyanosis or edema and Yes no calf tenderness Psych Appearance: grossly normal and well kempt Speech and movement: Normal speech and movement present Assessment & Plan Assessment & Plan (1) COPD (chronic obstructive pulmonary disease): Comment: This 69 years old gentleman has severe obstructive airway disorder. It is due to his previous smoking. After recent pneumothorax and treatment for respiratory failure, he is now improved and relatively stable. Needs to stay on oxygen carefully avoiding over oxygenation. His respiratory status has definitely improved and he heals stronger since he is participating in rehab program. Code(s): J44.9 - Chronic obstructive pulmonary disease, unspecified Category: Medical Plan: Continue Symbicort 160-4.52 puffs b.i.d. Continue to use ipratropium-albuterol 3 male in the nebulizer Q i.d.. As he remains more stable he may cut it down to t.i.d.. Mucinex 600 mg b.i.d. p.r.n. Albuterol HFA 2 puffs Q 6 hours p.r.n. Azithromycin 250 mg per day 3 days if he He will have prednisone 20 mg b.i.d. for 5 days , to be used in case of any acute exacerbation , before it gets any worse. I spent plenty of time to explained to him about this regimen . There was a question about, adding a LAMA agent. However he has tried Spiriva before and did not tolerate well. I also explained to him that use of ipratropium solution in the nebulizer , replaces a LAMA agent . Again we had a good discussion about the Zepher valves, as a lung reduction procedure. For this he has to see an interventional coat hanger shaper machine operator, and I will, look into generating a referral to an interventional coat hanger shaper machine operator at [facility]. (2) Pulmonary nodules: Comment: He does have multiple pulmonary nodules less than 4 mm in size. 1 large nodule in left upper lobe, 1 cm in size, was biopsied, resulting in postprocedure pneumothorax. The biopsy results are inconclusive, he would need to have a repeat biopsy. However due to the complication of post procedure pneumothorax, patient with not be eager to undergo this procedure. We may have to repeat a CT scan of the chest at short intervals. Code(s): R91.8 - Other nonspecific abnormal finding of lung field Category: Medical Plan: as above (3) Respiratory failure with hypoxia: Comment: He has the hypoxemia which gets worse on walking around. He also has hypercapnia which caused acute on chronic respiratory failure during his hospitalization. At the time of discharge the venous blood gases were consistent with chronic compensated respiratory failure, with pCO2 76 and bicarb level 49 In addition to doing deep breathing exercises he was also prescribed acetazolamide 250 mg once a day, but he had to stop using it due to feeling of some blurriness of the eyes and lightheadedness . Code(s): J96.91 - Respiratory failure, unspecified with hypoxia Category: Medical Plan: Use O2 2 L/minute , most of the time. Do deep breathing exercises with pursed lip technique, and he can do it almost every hour when awake. REPEAT VENOUS BLOOD GAS STUDY IS ORDERED. (4) Dyspnea on minimal exertion: Comment: HE GETS SHORT OF BREATH WITH MINIMAL, WALKING OR EXERTION AND THIS IS SECONDARY TO HYPOXEMIA ON EXERTION. HE DEFINITELY FEELS BETTER SINCE HE IS USING OXYGEN. BUT STILL GETS SHORT OF BREATH ON WALKING UP HILL OR CLIMBING STAIRS. BREATHING STATUS IS DEFINITELY IMPROVED SINCE HE IS PARTICIPATING IN PULMONARY REHAB PROGRAM. Code(s): R06.09 - Other forms of dyspnea Category: Medical Plan: ADVISED TO CONTINUE PULMONARY REHAB PROGRAM, I ALSO ENCOURAGED HIM TO SIGN UP FOR A MAINTENANCE LONG-TERM PROGRAM. Orders: Orders Venous Blood Gas Today J96.91 - Respiratory failure, unspecified with hypoxia Medications: New prednisone 20 mg PO BID 10 tabs 1RF COPD EXCERBATION 5 days Coding Level of Care Code Est Pt Level 4 (43934) Diagnoses COPD (chronic obstructive pulmonary disease) J44.9 Pulmonary nodules R91.8 Respiratory failure with hypoxia J96.91 Dyspnea on minimal exertion R06.09
[2025-04-02 10:01] VITALS: BP 120/62; PULSE 106; O2SAT 94; BMI 18.1
--- OUTSIDE RECORDS SUMMARY | 2025-04-02 10:03 | XMS_ITS | Clinical Summary ---
Author Organization [facility] Address [address] [place] [address] Care Team Providers Care Absorption And Adsorption Engineer Name Role Phone Unavailable Primary Care Provider [...]
== END 2025-04-02 10:35 | disposition home or self-care (01) ==
LOC: HO.HPS 09:35
PROVIDERS: PCP Internal Medicine; Visit Provider Internal Medicine
DX: J44.9 Chronic obstructive pulmonary disease, unspecified (principal); R91.8 Other nonspecific abnormal finding of lung field; J96.91 Respiratory failure, unspecified with hypoxia; R06.09 Other forms of dyspnea
CPT/HCPCS: 99214

== ENCOUNTER 2025-04-16 09:42 | Outpatient (AMB) | payer MEDICARE, SELFPAY ==
[2025-04-16 10:15] VITALS: PULSE 96; O2SAT 96
--- NOTE | 2025-04-16 10:15 | A.OFFVIS_ITS ---
Vital Signs 04/16/25 10:15 04/16/25 10:15 Weight 121 lb 4.068 oz Pulse 96 Pulse Source Pulse Oximeter Pulse Oximetry (%) 96 Oxygen Delivery Method Nasal Cannula Oxygen Flow Rate 3 Intake Visit Reasons: 6 minute walk Card Lacer Required: No Allergies No Known Allergies Allergy (Verified 04/16/25 10:16) Medication List - Last Reconciled 04/16/25 by Susy Sosa LPN acetazolamide 250 mg PO DAILY 30 days albuterol sulfate 90 mcg/actuation 2 puffs inhalation Q4-6H PRN 90 days aspirin 81 mg PO Q OTHER DAY atorvastatin 80 mg PO DAILY azithromycin 250 mg PO MOWEFR@0900 90 days glucosamine HCl 1,500 mg PO DAILY guaifenesin ER (Mucinex) 600 mg PO DAILY PRN ipratropium-albuterol 0.5 mg-3 mg(2.5 mg base)/3 mL 3 mL inhalation QID PRN multivitamin (Daily Multi-Vitamin tablet) 1 tab PO DAILY prednisone 20 mg PO BID 5 days Symbicort 160-4.5 mcg/actuation (budesonide-formoterol) 2 puffs inhalation BID 90 days NS [facility] Medical History Moderate to severe aortic stenosis Respiratory failure with hypoxia Tachycardia Dyspnea on minimal exertion BPH (benign prostatic hyperplasia) Hyperlipidemia Personal history of nicotine dependence Pulmonary nodules COPD (chronic obstructive pulmonary disease) Surgical History History of Mohs micrographic surgery for skin cancer History of cataract surgery History of right inguinal hernia repair Social History Household Members: Spouse Housing: House Are you a primary care information associate to a significant other at home: No Do you presently have visiting nurse or other home services: No Patient Tobacco Use Status: Former Tobacco user Years Smoked: 50 Second Hand Smoke Exposure: No service: No Physical Exam Vital Signs: Last Vital Signs Pulse 96 04/16/25 10:15 Pulse Ox 96 04/16/25 10:15 Oxygen Delivery Method Nasal Cannula 04/16/25 10:15 Oxygen Flow Rate 3 04/16/25 10:15 Office Procedures 6 Minute Walk Time:: 10:00 SPO2 % at rest: 78 (at rest on room air) Pulse at rest: 106 SPO2 % during excercise: 87 Pulse during excercise: 114 SPO2 % after excercise: 91 Pulse after excercise: 114 Distance in yards walked: 120 Joss Score: 5 Performance Observations:: Osbaldo walked on level ground without assistance, he walked for 60 yards before his SPO2 decreased to 87% on 3 lpm cont. O2, O2 increased to 4 lpm and with a brief rest his SPO2 recovered to 92%. He maintained his SPO2 91-92% on 4 lpm continuous O2. [address]7517 - 6 Minute Walk Assessment & Plan Assessment & Plan (1) COPD (chronic obstructive pulmonary disease): Comment: PATIENT WAS HERE JUST FOR A 6 MINUTES WALK TEST Code(s): J44.9 - Chronic obstructive pulmonary disease, unspecified Category: Medical Plan: SEE THE NOTE Orders: Orders AMB 6 minute walk 04/16/25 J44.9 - Chronic obstructive pulmonary disease, unspecified Coding Level of Care Code Established Pt Est Pt Level 1 (98797) Patient Type Established Diagnoses COPD (chronic obstructive pulmonary disease) J44.9 CPT Codes Coding ([id number]) Comment NURSE VISIT ONLY
[2025-04-16 10:19] VITALS: PULSE 106; O2SAT 78
--- OUTSIDE RECORDS SUMMARY | 2025-04-16 10:27 | XMS_ITS | Clinical Summary ---
Author Organization [facility] Address [address] [place] [address] Care Team Providers Care Real Estate Transaction Coordinator Name Role Phone Unavailable Primary Care Provider [...]
== END 2025-04-16 10:49 | disposition home or self-care (01) ==
LOC: HO.HPS 09:43
PROVIDERS: PCP Internal Medicine; Visit Provider Internal Medicine
DX: J44.9 Chronic obstructive pulmonary disease, unspecified (principal)

== ENCOUNTER → 2025-04-16 09:42 | Outpatient (BNVA) | payer MEDICARE, SELFPAY | PROVIDERS: PCP Internal Medicine; Visit Provider Internal Medicine | DX: J44.9 Chronic obstructive pulmonary disease, unspecified (principal) | CPT/HCPCS: 94618; 99211 ==

== ENCOUNTER 2025-05-08 09:38 | Outpatient (AMB) | payer MEDICARE, SELFPAY ==
--- NOTE | 2025-05-08 09:43 | A.OFFVIS_ITS ---
Vital Signs 05/08/25 09:44 Height 5 ft 9 in Weight 123 lb 7.342 oz BMI 18.2 BP 110/60 Blood Pressure Location Lt brachial Position Sitting Pulse 96 Pulse Source Pulse Oximeter Pulse Oximetry (%) 96 Oxygen Delivery Method Room Air Intake Visit Reasons: copd Intake Note: pt is here for follow up and breathing is at his baseline, he is seeing cardiology, had echo and referred to cardiac surgeon for his aortic valve surgery. Lithograph Printer Required: No Allergies No Known Allergies Allergy (Verified 05/08/25 09:57) Medication List - Last Reconciled 05/08/25 by Bailee Santacruz MD acetazolamide 250 mg PO DAILY 30 days albuterol sulfate 90 mcg/actuation 2 puffs inhalation Q4-6H PRN 90 days aspirin 81 mg PO Q OTHER DAY atorvastatin 80 mg PO DAILY azithromycin 250 mg PO MOWEFR@0900 90 days glucosamine HCl 1,500 mg PO DAILY guaifenesin ER (Mucinex) 600 mg PO DAILY PRN ipratropium-albuterol 0.5 mg-3 mg(2.5 mg base)/3 mL 3 mL inhalation QID PRN multivitamin (Daily Multi-Vitamin tablet) 1 tab PO DAILY prednisone 20 mg PO BID PRN Symbicort 160-4.5 mcg/actuation (budesonide-formoterol) 2 puffs inhalation BID 90 days NS Do you need a note to return to daycare/school/sports/work: No HPI HPI copd: Details: 69 YEARS OLD GENTLEMAN IS HERE FOR HIS FOLLOW-UP. HE HAS ADVANCED COPD WITH RESPIRATORY FAILURE( HYPERCAPNIA/HYPOXEMIA ) VBGS ON HIS LAST VISIT, SHOWED PCO2 97. HE WAS NOT ABLE TO TOLERATE ACETAZOLAMIDE EVEN AT A REDUCED DOSE. HAS BEEN USING O2, 3 L/MINUTE DAY AND NIGHT HE IS TACHYPNEIC MOST OF THE TIME BUT FEELS MORE AT BASELINE. AT PRESENT DOES NOT HAVE ANY RESPIRATORY INFECTION. HE HAD OVERNIGHT OXIMETRY RECORDING WITH O2 2 L/MINUTE, AND HIS O2 SAT DOES FALL BELOW 88% FOR 25 MINUTES [facility] Medical History Moderate to severe aortic stenosis Respiratory failure with hypoxia Tachycardia Dyspnea on minimal exertion BPH (benign prostatic hyperplasia) Hyperlipidemia Personal history of nicotine dependence Pulmonary nodules COPD (chronic obstructive pulmonary disease) Surgical History History of Mohs micrographic surgery for skin cancer History of cataract surgery History of right inguinal hernia repair Social History Household Members: Spouse Housing: House Are you a primary client care specialist to a significant other at home: No Do you presently have visiting nurse or other home services: No Patient Tobacco Use Status: Former Tobacco user Years Smoked: 50 Second Hand Smoke Exposure: No service: No Review of Systems Const All systems reviewed & are unremarkable except as noted in HPI and below Eyes Reports no additional complaints ENT Reports nasal congestion (Off and on, but now every day for the last 3-4 days) Card Denies irregular heart rhythm, Denies leg edema and Reports dyspnea on exertion Resp Reports as per HPI and Reports dyspnea on exertion GI Reports no additional complaints Reports no additional complaints Musc Reports no additional complaints Skin/Breast Reports system reviewed and no additional complaints, except as documented Neuro Reports no additional complaints Psych Reports no additional complaints Physical Exam Vital Signs: Last Vital Signs Pulse 96 05/08/25 09:44 BP 110/60 05/08/25 09:44 Pulse Ox 96 05/08/25 09:44 Oxygen Delivery Method Room Air 05/08/25 09:44 BMI result Body Mass Index 18.2 Const General: comfortable, no acute distress, alert and awake Orientation/consciousness: patient oriented x3 HEENT Head: Yes normal to inspection General nose exam: No nasal polyps present and No nasal discharge present Face and sinus: Yes sinuses nontender Mouth: oropharynx normal Throat: Yes posterior oropharynx normal Eyes General: appearance normal, both eyes and all related structures Neck Neck: Yes normal visual inspection, Yes no lymphadenopathy, Yes trachea midline and Yes no JVD Thyroid: Thyroid normal Chest Chest palpation & inspection: normal inspection of the chest, normal palpation of entire chest wall and no tenderness Resp Other: PERCUSSION NOTE IS HYPER-RESONANT, BREATH SOUNDS ARE VERY DISTANT WITH PROLONGED EXPIRATORY PHASE. BUT NO WHEEZES RHONCHI OR CREPS ARE HEARD. Cardio Palpation: normal PMI Rate: regular rate Rhythm: regular rhythm Heart sounds: no gallops and no murmurs GI Palpation (GI): Soft to palpation, nontender, No hepatosplenomegaly present and no masses Auscultation: normal bowel sounds Back/Spine/Pelvis Thoracic/Lumbar Spine: thoracic and lumbar spine normal to inspection Skin General skin exam: no rashes or lesions noted Neuro General: patient oriented x3 and no focal motor deficits Cranial nerves: Yes CN's II-XII intact bilaterally Extrem General: Yes normal to inspection, Yes no clubbing, cyanosis or edema and Yes no calf tenderness Psych Appearance: grossly normal and well kempt Speech and movement: Normal speech and movement present Results Reviewed Results Reviewed: OVERNIGHT OXIMETRY RECORDING WITH O2 2 L/MINUTE, SHOWS O2 SAT BELOW 88% FOR 25 MINUTES, C/W PERIODS OF HYPOVENTILATION DURING NIGHT. VENOUS BGs PH= 7.32 PCO2 97 , PO2 35 , C/W CHRONIC COMPENSATED RESPIRATORY FAILURE. Assessment & Plan Assessment & Plan (1) COPD (chronic obstructive pulmonary disease): Comment: TSEW HAS ADVANCED CHRONIC OBSTRUCTIVE PULMONARY DISEASE. HE IS ON [employer] MEDICAL TREATMENTAS BELOW : Code(s): J44.9 - Chronic obstructive pulmonary disease, unspecified Category: Medical Plan: SYMBICORT 160-4.52 PUFFS B.I.D. IPRATROPIUM-ALBUTEROL SOLUTION 3 MALE IN THE NEBULIZER Q I.D. MUCINEX 600 MG B.I.D. AZITHROMYCIN 250 MG 3 DAYS A WEEK ALBUTEROL HFA 2 PUFFS Q 6 HOURS P.R.N. PREDNISONE 20 MG B.I.D. FOR 5 DAYS COURSE PRN (2) Respiratory failure with hypoxia: Comment: He has the hypoxemia which gets worse on walking around. He also has hypercapnia which caused acute on chronic respiratory failure during his hospitalization. At the time of discharge the venous blood gases were consistent with chronic compensated respiratory failure, with pCO2 76 and bicarb level 49 Last venous blood gas study shows pCO2 at 97 c/w chronic compensated respiratory failure. Acetazolamide was tried but he could not tolerated. He needs to use BiPAP at night. . And also during the daytime as needed With his grossly abnormal blood gas study showing pCO2 97, and overnight oximetry recording showing drop in the O2 sat below 88% for 25 minutes, he qualifies to have BiPAP at home. I a.m. ordering the BiPAP equipment., with pressure setting of 15/8 cm and O2 2 L/minute at night. He is advised to continue doing deep breathing exercises with pursed lip technique, if possible boil every 2 hours during the daytime. Code(s): J96.91 - Respiratory failure, unspecified with hypoxia Category: Medical Plan: as above Medications: Changed From prednisone 20 mg PO BID 5 days 10 tabs 1RF COPD EXCERBATION To prednisone 20 mg PO BID PRN Coding Level of Care Code Est Pt Level 4 (24945) Diagnoses COPD (chronic obstructive pulmonary disease) J44.9 Respiratory failure with hypoxia J96.91
[2025-05-08 09:44] VITALS: BP 110/60; PULSE 96; O2SAT 96; BMI 18.2
--- OUTSIDE RECORDS SUMMARY | 2025-05-08 10:06 | XMS_ITS | Clinical Summary ---
Author Organization [facility] Address [address] [place] [address] Care Team Providers Care Alterations Manager Name Role Phone Unavailable Primary Care Provider [...]
== END 2025-05-08 10:14 | disposition home or self-care (01) ==
LOC: HO.HPS 09:39
PROVIDERS: PCP Internal Medicine; Visit Provider Internal Medicine
DX: J44.9 Chronic obstructive pulmonary disease, unspecified (principal); J96.91 Respiratory failure, unspecified with hypoxia
CPT/HCPCS: 99214

== ENCOUNTER → 2025-05-08 09:38 | Outpatient (BNVA) | payer MEDICARE, SELFPAY | PROVIDERS: PCP Internal Medicine; Visit Provider Internal Medicine | DX: J96.91 Respiratory failure, unspecified with hypoxia (principal); J44.9 Chronic obstructive pulmonary disease, unspecified | CPT/HCPCS: 99212 ==

== ENCOUNTER 2025-05-09 08:30 | Outpatient (RCR) | payer MEDICARE, SELFPAY | END 2025-05-23 10:07 | disposition home or self-care (01) | LOC: HO.PR 08:30 | PROVIDERS: PCP Registered Nurse; Visit Provider Internal Medicine | DX: J44.9 Chronic obstructive pulmonary disease, unspecified (principal); J96.91 Respiratory failure, unspecified with hypoxia | CPT/HCPCS: 94618; 94625; 99212 ==

== ENCOUNTER 2025-06-12 10:20 | Outpatient (AMB) | payer MEDICARE, SELFPAY ==
--- NOTE | 2025-06-12 10:27 | A.OFFVIS_ITS ---
Vital Signs 06/12/25 10:28 Height 5 ft 9 in Weight 124 lb BMI 18.3 BP 108/70 Blood Pressure Location Lt brachial Position Sitting Pulse 112 H Pulse Source Pulse Oximeter Pulse Oximetry (%) 96 Oxygen Delivery Method Nasal Cannula Oxygen Flow Rate 3 Intake Visit Reasons: COPD Intake Note: pt is here for follow up and will discuss the visit from DME, he is having some arterial stenosis surgery TAVR surgery in a few weeks. 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 Required: No Allergies No Known Allergies Allergy (Verified 06/12/25 10:33) Medication List - Last Reconciled 06/12/25 by Bailee Santacruz MD acetazolamide 250 mg PO DAILY 30 days albuterol sulfate 90 mcg/actuation 2 puffs inhalation Q4-6H PRN 90 days aspirin 81 mg PO DAILY atorvastatin 80 mg PO DAILY azithromycin 250 mg PO MOWEFR@0900 90 days glucosamine HCl 1,500 mg PO DAILY guaifenesin ER (Mucinex) 600 mg PO DAILY PRN ipratropium-albuterol 0.5 mg-3 mg(2.5 mg base)/3 mL 3 mL inhalation QID PRN multivitamin (Daily Multi-Vitamin tablet) 1 tab PO DAILY prednisone 20 mg PO BID PRN Symbicort 160-4.5 mcg/actuation (budesonide-formoterol) 2 puffs inhalation BID 90 days NS HPI HPI COPD: Details: This 69 years old gentleman with advanced chronic obstructive pulmonary disease/respiratory failure, comes back for follow-up after 4 weeks. He has completed the initial part of pulmonary rehab program, does not want to continue with the maintenance phase. He try to use the home ventilator but could not, feels suffocated with any type of mask, so returned the equipment. He also does not want to try the BiPAP because that would also involve putting the mask on his face or nose. He was prescribed acetazolamide 250 mg half tablet b.i.d. to lower the level of pCO2. Unfortunately did not tolerate the pill ( due to some GI issues) then he tried to take half tablet just in the morning, which was okay but could not use it b.i.d.. Last week had chest congestion which has improved with course of prednisone 20 mg b.i.d.. Today he comes into the office in wheelchair, He does not seem to have respiratory distress as much as before. He is on maximum medical treatment for his advanced COPD. Main issue at this time is marked generalized weakness and poor endurance. He is also waiting to have TAVR procedure for aortic valve replacement, and hoping that the procedure will decrease his dyspnea on exertion. [facility] Medical History Moderate to severe aortic stenosis Respiratory failure with hypoxia Tachycardia Dyspnea on minimal exertion BPH (benign prostatic hyperplasia) Hyperlipidemia Personal history of nicotine dependence Pulmonary nodules COPD (chronic obstructive pulmonary disease) Surgical History History of Mohs micrographic surgery for skin cancer History of cataract surgery History of right inguinal hernia repair Social History Household Members: Spouse Housing: House Are you a primary child daycare worker to a significant other at home: No Do you presently have visiting nurse or other home services: No Patient Tobacco Use Status: Former Tobacco user Years Smoked: 50 Second Hand Smoke Exposure: No service: No Review of Systems Const All systems reviewed & are unremarkable except as noted in HPI and below Eyes Reports no additional complaints ENT Reports nasal congestion (Off and on, but now every day for the last 3-4 days) Card Denies irregular heart rhythm, Denies leg edema and Reports dyspnea on exertion Resp Reports as per HPI and Reports dyspnea on exertion GI Reports no additional complaints Reports no additional complaints Musc Reports no additional complaints Skin/Breast Reports system reviewed and no additional complaints, except as documented Neuro Reports no additional complaints Psych Reports no additional complaints Physical Exam Vital Signs: Last Vital Signs Pulse 112 H 06/12/25 10:28 BP 108/70 06/12/25 10:28 Pulse Ox 96 06/12/25 10:28 Oxygen Delivery Method Nasal Cannula 06/12/25 10:28 Oxygen Flow Rate 3 06/12/25 10:28 BMI result Body Mass Index 18.3 Const General: comfortable, no acute distress, alert and awake Orientation/consciousness: patient oriented x3 HEENT Head: Yes normal to inspection General nose exam: No nasal polyps present and No nasal discharge present Face and sinus: Yes sinuses nontender Mouth: oropharynx normal Throat: Yes posterior oropharynx normal Eyes General: appearance normal, both eyes and all related structures Neck Neck: Yes normal visual inspection, Yes no lymphadenopathy, Yes trachea midline and Yes no JVD Thyroid: Thyroid normal Chest Chest palpation & inspection: normal inspection of the chest, normal palpation of entire chest wall and no tenderness Resp Other: PERCUSSION NOTE IS HYPER-RESONANT, BREATH SOUNDS ARE VERY DISTANT WITH PROLONGED EXPIRATORY PHASE. BUT NO WHEEZES RHONCHI OR CREPS ARE HEARD. Cardio Palpation: normal PMI Rate: regular rate Rhythm: regular rhythm Heart sounds: no gallops and no murmurs GI Palpation (GI): Soft to palpation, nontender, No hepatosplenomegaly present and no masses Auscultation: normal bowel sounds Back/Spine/Pelvis Thoracic/Lumbar Spine: thoracic and lumbar spine normal to inspection Skin General skin exam: no rashes or lesions noted Neuro General: patient oriented x3 and no focal motor deficits Cranial nerves: Yes CN's II-XII intact bilaterally Extrem General: Yes normal to inspection, Yes no clubbing, cyanosis or edema and Yes no calf tenderness Psych Appearance: grossly normal and well kempt Speech and movement: Normal speech and movement present Results Reviewed Results Reviewed: VENOUS BGs TODAY PH 7.44 PCO2. 68 PO2 86 HCO3 46 Assessment & Plan Assessment & Plan (1) COPD (chronic obstructive pulmonary disease): Comment: STEW HAS ADVANCED CHRONIC OBSTRUCTIVE PULMONARY DISEASE. HE IS ON MAXIMUM MEDICAL TREATMENTAS BELOW : Code(s): J44.9 - Chronic obstructive pulmonary disease, unspecified Category: Medical Plan: SYMBICORT 160-4.52 PUFFS B.I.D. IPRATROPIUM-ALBUTEROL SOLUTION IN THE NEBULIZER Q 6 HOURS WHILE AWAKE. MUCINEX 600 MG ONCE OR TWICE A DAY. . DEPENDING UPON COUGH AND MUCUS AZITHROMYCIN 250 MG 3 DAYS A WEEK (2) Respiratory failure with hypoxia: Comment: He has the hypoxemia which gets worse on walking around. He also has hypercapnia which caused acute on chronic respiratory failure during his hospitalization. At the time of discharge the venous blood gases were consistent with chronic compensated respiratory failure, with pCO2 76 and bicarb level 49 Last venous blood gas study shows pCO2 at 97 c/w chronic compensated respiratory failure. Acetazolamide was tried but he could not tolerated. He needs to use NIVS . WE HAD ORDERED A HOME VENTILATOR DEVICE WHICH WAS PROVIDED TO HIM BUT HE JUST COULD NOT USE, HE FELT CLAUSTROPHOBIC WITH NASAL OR FULLFACE MASK. CO-PAYMENT OF 175 DOLLARS PER MONTH WAS ALSO A FACTOR . SO HE RETURNED THE VENTILATOR DEVICE. TODAY I TALKED TO HIM IF HE COULD USE THE BIPAP, HE SAID NO WAY THAT HE WILL BE ABLE TO USE IT. DID HIS VENOUS BLOOD GAS STUDY AND THAT IS DEFINITELY IMPROVED FROM BEFORE THOUGH HIS PCO2 LEVEL IS STILL 68. Code(s): J96.91 - Respiratory failure, unspecified with hypoxia Category: Medical Plan: I DISCUSSED WITH HIM THAT HIS SIGNIFICANT HYPERCAPNIA NEEDS TREATMENT WITH A PRESSURE SUPPORT AT NIGHT. HOWEVER IF HE CAN NOT USE THEN HE HAS TO, DO MORE BREATHING EXERCISES. I DID TEACH HIM TO DO. .HE DOES FAIRLY WELL I ADVISED HIM TO DO 10 TIMES EVERY HOUR WHEN HE IS AWAKE. HE IS WILLING TO DO THIS EXERCISE SO THAT HE DOES NOT HAVE TO GO TO NIVS . I ALSO TOLD HIM THAT HE SHOULD TRY TO USE SMALL DOSE OF ACETAZOLAMIDE,, MAYBE JUST TRY 125 MG ONLY ONCE A DAY. (3) Pulmonary nodules: Comment: He does have multiple pulmonary nodules less than 4 mm in size. 1 large nodule in left upper lobe, 1 cm in size, was biopsied, resulting in postprocedure pneumothorax. The biopsy results are inconclusive, he would need to have a repeat biopsy. However due to the complication of post procedure pneumothorax, patient with not be eager to undergo this procedure. We may have to repeat a CT scan of the chest at short intervals. Code(s): R91.8 - Other nonspecific abnormal finding of lung field Category: Medical Plan: WILL REPEAT CT SCAN AT 6 MONTHS INTERVAL Orders: Orders Venous Blood Gas Today J96.91 - Respiratory failure, unspecified with hypoxia Medications: New prednisone 20 mg PO BID 10 tabs 2RF copd excerbation 5 days Coding Level of Care Code Est Pt Level 4 (21657) Diagnoses COPD (chronic obstructive pulmonary disease) J44.9 Respiratory failure with hypoxia J96.91 Pulmonary nodules R91.8
[2025-06-12 10:28] VITALS: BP 108/70; PULSE 112; O2SAT 96; BMI 18.3
--- OUTSIDE RECORDS SUMMARY | 2025-06-12 12:36 | XMS_ITS | Clinical Summary ---
Author Organization [facility] Address [address] [place] [address] Care Team Providers Care Target Network Analyst Name Role Phone Unavailable Primary Care Provider Unavailabl e Social History Tobacco Use Types Packs/Day Years Used Date Smoking Tobacco: Never Assessed Sex and Gender Information Value Date Recorded Sex Assigned at Not on file Legal Sex Male 8:00 PM EST Gender Identity Not on file Sexual Orientation Not on file Plan of Treatment Health Maintenance Due Date Last Done Comments Advance Care Planning 1955 Hepatitis C Virus Screening 1955 DTaP/Tdap/Td Vaccines (1 - Tdap) 1972 Pneumococcal Vaccines 50+ (1 of 1 - PCV) 2003 Zoster (Shingles) Vaccine (1 of 2) 2003 COVID-19 Vaccine ( - 2023-2 5 season) 2025 RSV Vaccine 60 years and old er and Patients (1 - 1-dose 75+ series) 2028 Hepatitis B Vaccines Aged Out No long er eligible based on patient's age to complete this topic
== END 2025-06-12 10:56 | disposition home or self-care (01) ==
PROVIDERS: PCP Internal Medicine Sports Medicine; Visit Provider Internal Medicine
DX: J44.9 Chronic obstructive pulmonary disease, unspecified (principal); J96.91 Respiratory failure, unspecified with hypoxia; R91.8 Other nonspecific abnormal finding of lung field
CPT/HCPCS: 99214

== ENCOUNTER 2025-06-12 10:20 | Outpatient (REF) | payer MEDICARE, SELFPAY ==
[2025-06-12 11:16] LABS: Venous Blood Gas Refer to POC result
[2025-06-12 11:22] LABS: VBG HCO3 46 mmol/L (22-26); VBG O2 % Saturation 98.0 %
== END 2025-06-12 10:21 | disposition home or self-care (01) ==
LOC: HO.LAB 10:20
PROVIDERS: Visit Provider Internal Medicine
DX: J96.91 Respiratory failure, unspecified with hypoxia (principal); J44.9 Chronic obstructive pulmonary disease, unspecified; R91.8 Other nonspecific abnormal finding of lung field; Z87.891 Personal history of nicotine dependence; Z79.51 Long term (current) use of inhaled steroids
CPT/HCPCS: 36415; 82803; 99212

== ENCOUNTER 2025-07-24 09:33 | Outpatient (AMB) | payer MEDICARE, SELFPAY ==
--- NOTE | 2025-07-24 09:47 | A.OFFVIS_ITS ---
Vital Signs 07/24/25 09:48 Height 5 ft 9 in Weight 124 lb 8.979 oz BMI 18.4 BP 102/58 L Blood Pressure Location Lt brachial Position Sitting Pulse 89 Pulse Source Pulse Oximeter Pulse Oximetry (%) 96 Oxygen Delivery Method Room Air Intake Visit Reasons: COPD Intake Note: pt is here for follow up and states he had valve replaced (06/02) it has not helped with his breathing and his stamina is not back, and he does have appt to possibly start cardiac rehab, and finished pulm rehab here. please send in azithmycin for a 3 month supply. Election Clerk Required: No Mate Fourth: Mate Fourth offered & declined Allergies No Known Allergies Allergy (Verified 07/24/25 10:23) Do you need a note to return to daycare/school/sports/work: No HPI HPI COPD: Details: This 70 years old gentleman is here for short-term follow-up. He is holding fairly stable. Gets short of breath on walking around, mostly using the wheelchair. He is on O2 2 L/minute continuously. After the TAVR , he has not recovered his strength yet. Heart rate is staying more stable. He expects to be okayed for cardiac rehab program. There has been no change in the mental status. He sleeps at least. 6 hours fairly well He is doing breathing exercises with pursed lip technique a few times during the day. [facility] Medical History Moderate to severe aortic stenosis Respiratory failure with hypoxia Tachycardia Dyspnea on minimal exertion BPH (benign prostatic hyperplasia) Hyperlipidemia Personal history of nicotine dependence Pulmonary nodules COPD (chronic obstructive pulmonary disease) Surgical History History of Mohs micrographic surgery for skin cancer History of cataract surgery History of right inguinal hernia repair Social History Household Members: Spouse Housing: House Are you a primary child care coordinator to a significant other at home: No Do you presently have visiting nurse or other home services: No Patient Tobacco Use Status: Former Tobacco user Years Smoked: 50 Second Hand Smoke Exposure: No service: No Review of Systems Const All systems reviewed & are unremarkable except as noted in HPI and below Eyes Reports no additional complaints ENT Reports nasal congestion (Off and on, but now every day for the last 3-4 days) Card Denies irregular heart rhythm, Denies leg edema and Reports dyspnea on exertion Resp Reports as per HPI and Reports dyspnea on exertion GI Reports no additional complaints Reports no additional complaints Musc Reports no additional complaints Skin/Breast Reports system reviewed and no additional complaints, except as documented Neuro Reports no additional complaints Psych Reports no additional complaints Physical Exam Vital Signs: Last Vital Signs Pulse 89 07/24/25 09:48 BP 102/58 L 07/24/25 09:48 Pulse Ox 96 07/24/25 09:48 Oxygen Delivery Method Room Air 07/24/25 09:48 BMI result Body Mass Index 18.4 Const General: comfortable, no acute distress, alert and awake Orientation/consciousness: patient oriented x3 HEENT Head: Yes normal to inspection General nose exam: No nasal polyps present and No nasal discharge present Face and sinus: Yes sinuses nontender Mouth: oropharynx normal Throat: Yes posterior oropharynx normal Eyes General: appearance normal, both eyes and all related structures Neck Neck: Yes normal visual inspection, Yes no lymphadenopathy, Yes trachea midline and Yes no JVD Thyroid: Thyroid normal Chest Chest palpation & inspection: normal inspection of the chest, normal palpation of entire chest wall and no tenderness Resp Other: PERCUSSION NOTE IS HYPER-RESONANT, BREATH SOUNDS ARE VERY DISTANT WITH PROLONGED EXPIRATORY PHASE. BUT NO WHEEZES RHONCHI OR CREPS ARE HEARD. Cardio Palpation: normal PMI Rate: regular rate Rhythm: regular rhythm Heart sounds: no gallops and no murmurs GI Palpation (GI): Soft to palpation, nontender, No hepatosplenomegaly present and no masses Auscultation: normal bowel sounds Back/Spine/Pelvis Thoracic/Lumbar Spine: thoracic and lumbar spine normal to inspection Skin General skin exam: no rashes or lesions noted Neuro General: patient oriented x3 and no focal motor deficits Cranial nerves: Yes CN's II-XII intact bilaterally Extrem General: Yes normal to inspection, Yes no clubbing, cyanosis or edema and Yes no calf tenderness Psych Appearance: grossly normal and well kempt Speech and movement: Normal speech and movement present Assessment & Plan Assessment & Plan (1) COPD (chronic obstructive pulmonary disease): Comment: STEW HAS ADVANCED CHRONIC OBSTRUCTIVE PULMONARY DISEASE. HE IS ON MAXIMUM MEDICAL TREATMENTAS BELOW : HE IS HOLDING FAIRLY STABLE AT THIS TIME. Code(s): J44.9 - Chronic obstructive pulmonary disease, unspecified Category: Medical Plan: SYMBICORT 160-4.52 PUFFS B.I.D. IPRATROPIUM-ALBUTEROL UPDRAFT Q 6 HOURS WHILE AWAKE. ALBUTEROL HFA 2 PUFFS Q 4-6 HOURS P.R.N. AZITHROMYCIN 250 MG 3 DAYS A WEEK MUCINEX 600 MG B.I.D. PREDNISONE 20 MG B.I.D. FOR 5 DAYS ( ONLY P.R.N.) (2) Respiratory failure with hypoxia: Comment: He has the hypoxemia which gets worse on walking around. He also has hypercapnia which caused acute on chronic respiratory failure during his hospitalization. At the time of discharge the venous blood gases were consistent with chronic c ompensated respiratory failure, with pCO2 76 and bicarb level 49 Last venous blood gas study shows pCO2 at 97 c/w chronic compensated respiratory failure. Acetazolamide was tried but he could not tolerated. He needs to use NIVS . WE HAD ORDERED A HOME VENTILATOR DEVICE WHICH WAS PROVIDED TO HIM BUT HE JUST COULD NOT USE, HE FELT CLAUSTROPHOBIC WITH NASAL OR FULLFACE MASK. CO-PAYMENT OF 175 DOLLARS PER MONTH WAS ALSO A FACTOR . SO HE RETURNED THE VENTILATOR DEVICE. EVEN THOUGH HOME VENTILATOR WAS APPROVED FOR HIM BUT HE COULD NOT TOLERATE AND HE HAD TO RETURN IT Code(s): J96.91 - Respiratory failure, unspecified with hypoxia Category: Medical Plan: O2 2 L/MINUTE, 24 HOURS A DAY DEEP BREATHING EXERCISES WITH PURSED LIP TECHNIQUE. ACETAZOLAMIDE 125 MG DAILY (3) Dyspnea on minimal exertion: Comment: HE GETS SHORT OF BREATH WITH MINIMAL, WALKING OR EXERTION AND CURRENTLY STABLE. Code(s): R06.09 - Other forms of dyspnea Category: Medical Plan: DISCUSSED ABOUT DYSPNEA,, AFTER THE AORTIC VALVE PLACEMENT IT SHOULD SLOWLY IMPROVE. ADVISED TO CONTINUE PRESENT. MEDICAL REGIMEN HOPEFULLY HE WILL JOIN THE CARDIAC REHAB PROGRAM , WHICH SHOULD HELP (4) Pulmonary nodules: Comment: He does have multiple pulmonary nodules less than 4 mm in size. 1 large nodule in left upper lobe, 1 cm in size, was biopsied, resulting in postprocedure pneumothorax. The biopsy results are inconclusive, he would need to have a repeat biopsy. However due to the complication of post procedure pneumothorax, patient wiLL not be eager to undergo this procedure. We may have to repeat a CT scan of the chest at short intervals. Code(s): R91.8 - Other nonspecific abnormal finding of lung field Category: Medical Plan: as above Orders: Orders Venous Blood Gas Today J96.91 - Respiratory failure, unspecified with hypoxia Medications: Refilled azithromycin 250 mg PO MOWEFR@0900 39 tabs 3RF copd/ Resp. failure 90 days Coding Level of Care Code Est Pt Level 3 (25294) Diagnoses COPD (chronic obstructive pulmonary disease) J44.9 Respiratory failure with hypoxia J96.91 Dyspnea on minimal exertion R06.09 Pulmonary nodules R91.8
[2025-07-24 09:48] VITALS: BP 102/58; PULSE 89; O2SAT 96; BMI 18.4
--- OUTSIDE RECORDS SUMMARY | 2025-07-24 11:23 | XMS_ITS | Clinical Summary ---
Author Organization [facility] Address [address] [place] [address] Care Team Providers Care Nuclear Worker Technician Name Role Phone Unavailable Primary Care [...] - 2023-2 5 season) 2025 RSV Vaccine 50 years and old er and Patients (1 - 1-dose 75+ series) 2028 Hepatitis B Vaccines Aged Out No long er eligible based on patient's age to complete this topic
== END 2025-07-24 10:23 | disposition home or self-care (01) ==
PROVIDERS: PCP Internal Medicine Sports Medicine; Visit Provider Internal Medicine
DX: J44.9 Chronic obstructive pulmonary disease, unspecified (principal); J96.91 Respiratory failure, unspecified with hypoxia; R06.09 Other forms of dyspnea; R91.8 Other nonspecific abnormal finding of lung field
CPT/HCPCS: 99213

== ENCOUNTER 2025-07-24 09:33 | Outpatient (REF) | payer MEDICARE, SELFPAY ==
[2025-07-24 11:18] LABS: VBG HCO3 42 mmol/L (22-26); VBG O2 % Saturation 45.0 %; Venous Blood Gas Refer to POC result
== END 2025-07-24 09:34 | disposition home or self-care (01) ==
LOC: HO.LAB 09:33
PROVIDERS: PCP Internal Medicine Sports Medicine; Visit Provider Internal Medicine
DX: J96.91 Respiratory failure, unspecified with hypoxia (principal); J44.9 Chronic obstructive pulmonary disease, unspecified; Z79.899 Other long term (current) drug therapy; Z87.891 Personal history of nicotine dependence; Z79.51 Long term (current) use of inhaled steroids
CPT/HCPCS: 36415; 82803; 99212

== ENCOUNTER 2025-08-27 09:18 | Outpatient (REF) | payer MEDICARE, SELFPAY ==
--- NOTE | ~2025-08-27 | XR_ITS ---
EXAMINATION: XR CHEST CLINICAL INFORMATION: J44.9 - Chronic obstructive pulmonary disease, unspecified COMPARISON: February 24, 2025 TECHNIQUE: PA and lateral views FINDINGS: Pulmonary reticular pattern. Hyperinflated lungs. Probable bronchiectasis, left lower lung lobe. No gross consolidation, pleural effusion or pneumothorax. Metallic stent likely aortic valve region. Multilevel spondylosis and kyphotic deformity mid thoracic spine. Osteopenia versus osteoporosis. XR/XR chest 2V IMPRESSION: COPD emphysematous type changes without overt acute airspace disease. Status post aortic valve prosthesis extent placement. Electronically signed by: Larry Manrique MD 08/27/2025 09:53 AM EST
--- OUTSIDE RECORDS SUMMARY | 2025-08-27 10:01 | XMS_ITS | Clinical Summary ---
Author Organization [facility] Address [address] [place] [address] Care Team Providers Care Band Sawyer Name Role Phone Unavailable Primary Care Provider [...]
== END 2025-08-27 09:19 | disposition home or self-care (01) ==
LOC: HO.XRAY 09:18
PROVIDERS: Visit Provider Internal Medicine
DX: R06.09 Other forms of dyspnea (principal); J44.9 Chronic obstructive pulmonary disease, unspecified
CPT/HCPCS: 71046

== ENCOUNTER → 2025-08-27 09:28 | Outpatient (BNV) | payer MEDICARE, SELFPAY | PROVIDERS: Visit Provider Radiology Diagnostic Radiology | DX: J43.9 Emphysema, unspecified (principal); Z95.2 Presence of prosthetic heart valve | CPT/HCPCS: 71046 ==